=== PATIENT | male | born 1940 | race Caucasian/White ===

== ENCOUNTER 2022-05-21 13:28 | Day surgery (SDC) | payer OTHER ==
[2022-05-20 10:46] VITALS: BMI 29.2
[~2022-05-21 13:28] MED LIST: LACTATED RINGERS 1,000 ML IV SCH; LIDOCAINE 1% (10MG/ML) FOR IV START INTRADERMA PRN
[2022-05-21 13:59] VITALS: RESP 16; TEMP 97
[2022-05-21] MEDS ORDERED: LIDOCAINE 2% INJ 20 MG/ML (2 ML VIAL) ONE (14:34)
[2022-05-21] MEDS ORDERED: PROPOFOL 10 MG/ML 20 ML VIAL IV ONE (14:34)
--- NOTE | 2022-05-21 15:00 | P.PCN ---
Date of Procedure: 05/21/22 Procedure(s) Performed: BRIEF HISTORY: Patient is a 81-year-old pleasant white female scheduled for an elective colonoscopy as a part of evaluation of positive cologuard:/Screening for colon cancer PROCEDURE PERFORMED: Colonoscopy with snare polypectomy. PREOPERATIVE DIAGNOSIS: Screening for colon cancer/positive cologuard. IV sedation per Anesthesia. PROCEDURE: After informed consent was obtained, the patient, was brought into the endoscopy unit. IV sedation was administered by Anesthesia under continuous monitoring. Digital rectal examination was normal. Initially the Olympus CF-160 flexible video colonoscope was then inserted in the rectum, gradually advanced into the cecum without any difficulty. Careful examination was performed as the scope was gradually being withdrawn. Ileocecal valve and the appendiceal orifice were visualized and appeared normal. Prep was excellent. Mucosa of the cecum, ascending colon, transverse colon, descending colon, sigmoid colon, and rectum appeared normal. In the distal rectum there was a 5 mm and 6 minutes sessile polyps removed by snare polypectomy. Retroflexion was performed in the rectum and no lesions were seen. The patient tolerated the procedure well. IMPRESSION: 5 mm and 6 mm rectal polyp status post polypectomy Rest of the colon appeared normal RECOMMENDATIONS: Findings of this examination were discussed with the patient well as his family. He was advised to follow with the biopsy results. If the biopsy reveals adenoma he can have a repeat colonoscopy in 5 years based on his overall medical condition.
[2022-05-21 15:21] VITALS: BP 170/76; PULSE 69
== END 2022-05-21 15:47 | disposition home or self-care (01) ==
LOC: ORWHC2ENDO 13:28
PROVIDERS: ATTEND Internal Medicine Gastroenterology
DX: K62.1 Rectal polyp (principal); I25.10 Atherosclerotic heart disease of native coronary artery without angina pectoris; I10 Essential (primary) hypertension; E78.5 Hyperlipidemia, unspecified; J44.9 Chronic obstructive pulmonary disease, unspecified; I63.9 Cerebral infarction, unspecified; Z88.2 Allergy status to sulfonamides; Z88.6 Allergy status to analgesic agent; Z79.899 Other long term (current) drug therapy
CPT/HCPCS: 45385; J2704; J2001; 88305

== ENCOUNTER → 2022-10-09 | Outpatient (CLI) | payer OTHER ==
[2022-10-10 03:09] LABS: African American GFR (CKD) 51.9 (60.0-200.0); Anion Gap 14.6 mmol/L (10.00-18.00); BUN/Creat Ratio 22.53 Ratio (12.00-20.00); Blood Urea Nitrogen 32.9 mg/dL (9.0-27.0); Calcium 10.3 mg/dL (8.7-10.3); Carbon Dioxide 23.3 mmol/L (20.0-27.5); Non-African American GFR(CKD) 44.8 (60.0-200.0); Potassium 4.7 mmol/L (3.5-5.5)
[2022-10-10 03:16] LABS: Basophils # (A) 0.03 X 10*3/uL (0.00-0.10); Basophils % (A) 0.7 %; Eosinophils # (A) 0.12 X 10*3/uL (0.04-0.35); Eosinophils % (A) 2.7 %; HCT 35.3 % (39.6-50.0); HGB 11.2 g/dL (13.0-17.0); Immature Grans, Automated 0.2 %; Lymphocytes # (A) 1.24 X 10*3/uL (0.90-5.00); Lymphocytes % (A) 27.7 %; MCH 32.8 pg (27.0-32.0); MCHC 31.7 g/dL (32.0-37.0); MCV 103.5 fL (80.0-97.0); Monocytes # (A) 0.59 X 10*3/uL (0.20-1.00); Monocytes % (A) 13.2 %; NRBC Per 100 WBC 0 /100 WBCS (0.0-0.0); Neutrophils # (A) 2.49 X 10*3/uL (1.80-7.70); Neutrophils % (A) 55.5 %; Platelet Count 185 X 10*3/uL (140-440); RBC 3.41 X 10*6/uL (4.40-5.60); RDW 13.2 % (11.5-14.5); WBC 4.48 X 10*3/uL (4.50-10.00)
[2022-10-10 04:32] LABS: INR 1.01 (0.90-1.11); Prothrombin Time 11.4 sec (9.9-11.9)
== END | disposition home or self-care (01) ==
LOC: LABWHC1 16:28
PROVIDERS: ATTEND Nurse Practitioner
DX: I10 Essential (primary) hypertension (principal); I35.0 Nonrheumatic aortic (valve) stenosis
CPT/HCPCS: 36415; 80048; 85025; 85610

== ENCOUNTER → 2022-10-16 | Day surgery (SDC) | payer OTHER ==
[2022-10-15 14:12] VITALS: BMI 30.5
[~2022-10-16] MED LIST changes: +ALPRAZolam 0.25 MG TAB PO PRN; +ALPRAZolam 0.5 MG TAB PO PRN; +ASPIRIN 325 MG TAB PO STA; +ATORVASTATIN 80 MG TAB PO STA; +BENZOCAINE SPRAY 1 CAN TOPICAL ONE; +HEPARIN SODIUM 1,000 UN/ML (10ML VL) IV ONE; +HEPARIN SODIUM 1,000 UN/ML (10ML VL) ONE; +HEPARIN SODIUM,PORCINE 10,000 UNIT in SODIUM CHLORIDE 0.9% 1,000 ML IRRIGATION PRN; +HEPARIN SODIUM,PORCINE 2,500 UNIT in SODIUM CHLORIDE 0.9% 250 ML IRRIGATION PRN; +IOPAMIDOL-370 100ML BTL INJ ONE; -LACTATED RINGERS 1,000 ML IV SCH; -LIDOCAINE 1% (10MG/ML) FOR IV START INTRADERMA PRN; +LIDOCAINE 1% INJ 10MG/ML (5 ML VIAL-PF) SQ ONE; +NITROGLYCERIN SL TABS 0.4 MG TAB SUBLINGUAL PRN; +SODIUM CHLORIDE 0.9% 1,000 ML IV ONE; +SODIUM CHLORIDE 0.9% 1,000 ML IV SCH; +SODIUM CHLORIDE 0.9% 1,000 ML in EMPTY BAG 1 BAG IV ONE; +VERAPAMIL 2.5 MG/ML 2 ML AMP ONE; +VERAPAMIL SYRINGE (5 MG/10 ML) INTRAARTER ONE; +fentaNYL (PF) 50 MCG/ML 2 ML AMP IVP ONE; +fentaNYL (PF) 50 MCG/ML 2 ML AMP ONE
[2022-10-16 08:24] VITALS: RESP 16; TEMP 97
[2022-10-16] MEDS: MIDAZOLAM 2 MG/2 ML VIAL IVP ONE ×2 (10:06→10:09)
--- NOTE | 2022-10-16 10:56 | ECHOT ---
TRANSESOPHAGEAL ECHOCARDIOGRAM INDICATIONS: Aortic stenosis. PROCEDURE NOTE: After obtaining informed consent, transesophageal echocardiogram is performed in left lateral position using an Omniplane probe. Local and IV sedation were obtained using 2 mg of Versed and 25 mcg of fentanyl. The patient tolerated the procedure well without any obvious immediate complications. Total sedation time was 10 minutes. FINDINGS: 1. Aortic Valve: Aortic valve is a 3-leaflet valve, appears heavily calcified with severe restriction in leaflet mobility. By planimetry, the valve area is 0.7 square cm consistent with severe aortic stenosis. There is moderate to severe aortic regurgitation noted. 2. Aortic root measures within normal limits. There is shzfnttn-pq-vsmzxn atherosclerotic plaque in the aorta. 3. Mitral valve shows mitral annular calcification with pwdk-nc-vtwsacwu central mitral regurgitation. Tricuspid valve shows moderate tricuspid regurgitation, interatrial septum. There is no evidence of ypxx-gk-tqzjj shunt by color-flow Doppler or rxioz-lj-cnmt shunt by agitated saline contrast study. Left atrium appears moderately enlarged. Right atrium and right ventricle seen within normal limits. 4. Left ventricle has normal size and systolic function. CONCLUSION: 1. Severe aortic stenosis involving a 3-leaflet aortic valve that is heavily calcified with a valve area of 0.7 square cm by planimetry. 2. Normal LV systolic function. 3. Eifbqkrq-ij-cvcbdv aortic regurgitation. PLAN: The patient will undergo cardiac catheterization and aortic valve replacement. MMODL / IJN: [id number] /
[2022-10-16 13:29] VITALS: BP 117/55; PULSE 42
--- NOTE | 2022-10-16 13:34 | CC ---
CARDIAC CATHETERIZATION REPORT DATE OF SERVICE: 10/16/2022. PROCEDURE PERFORMED: Coronary angiography. PERFORMED BY: Dr. Dennis Javier. ANESTHESIA: Moderate conscious sedation time was 22 minutes. The patient was administered Versed. Oxygen saturation, hemodynamics, and EKG were monitored closely. CLINICAL INFORMATION: Mr. Sean Garcia is an 82-year-old gentleman with a history of severe aortic stenosis and also recent abnormal stress test with inferolateral reversible defect. He has hypertension and hyperlipidemia. Because of abnormal stress test and also worsening aortic stenosis and mean gradient of more than 32 mmHg, he was advised cardiac catheterization after due discussion regarding risks, benefits, and options with the patient and his son. He underwent transesophageal echo, which revealed severe aortic stenosis with mild aortic regurgitation and also probably moderate pulmonary hypertension. He was advised coronary angiography in conjunction with a transesophageal echo to decide regarding the aortic valve replacement and also to assess for coronary artery disease. PROCEDURE NOTE: Under local anesthesia and strict aseptic precautions with the help of an ultrasound and micropuncture needle technique, a 6-Arabic introducer was placed in the right radial artery. Using 3.5 left and 4.0 right Nahomy catheters, I performed coronary angiography. I did not check LV pressures. The sheath was taken out, and TR band was applied as per protocol with saturation in the fingers of the right hand of more than 95%. The patient tolerated the procedure well without complications. He has significant calcification of coronary arteries. CARDIAC CATHETERIZATION FINDINGS: The left ventricular pressures were not checked. CORONARY ANGIOGRAPHY FINDINGS: RIGHT CORONARY ARTERY: This is a codominant vessel gives off a large PDA distally. In the proximal one-third, there is pxiwiybn-li-pntes calcification, and in the proximal portion, there is an eccentric 60% narrowing just before a long area of calcified segment. Beyond it, the caliber improves, and distally, it gives off the PDA branch but not the PLV branch. The rest of the RCA has no significant disease. There is a 60% proximal lesion with calcification. LEFT MAIN CORONARY ARTERY: Short, patent, disease-free vessel that immediately bifurcates into LAD and circumflex. No significant disease. LEFT ANTERIOR DESCENDING CORONARY ARTERY: Good-caliber vessel, extends along the anterior wall, gives off a good-sized diagonal branch very proximally and several smaller septal branches, runs all the way to the apex. This is a large-caliber large- distribution vessel, has about 30% to 40% narrowing. No significant disease in the entire LAD system including the diagonal. There is moderate calcification and moderate disease of no more than 30% to 40%. LEFT POSTERIOR CIRCUMFLEX CORONARY ARTERY: Technically, a nondominant/codominant vessel that gives off small obtuse marginal branches and a distal posterolateral branch. There is about 30% to 40% narrowing. No significant disease in the codominant/nondominant circumflex vessel. Distal circumflex posterolateral branch has about 50% to 60% narrowing noted, but the flow appears to be quite brisk, and there is no significant calcification in that area. LEFT VENTRICULOGRAM: Not performed. FINAL IMPRESSION: This patient has a codominant/right-dominant system. There is a 60% proximal right coronary artery disease with heavy calcification, and there is a good-sized posterior descending artery branch that comes off from the right coronary artery. Left main has no significant disease and is very small. Left anterior descending has 30% to 40% narrowing. The PLV branch that comes off from the nondominant circumflex has a 50% narrowing. No other significant disease in the rest of circumflex. Left ventricular pressures were not checked. By transesophageal echo, the patient has severe aortic stenosis. RECOMMENDATIONS: I am recommending that we will perform an iFR/FFR of RCA and perform RCA intervention, and after that, we will proceed with percutaneous aortic valve implant. I do not believe circumflex lesion is significant, and there is ischemia in the inferolateral wall. The patient's creatinine is 1.5. Therefore, we will stage the procedure. Findings were discussed with the patient as well as his son, and he will be discharged later on today, and I will see him in the office on Friday. MMODL / IJN: [id number] /
== END ==
LOC: CATHCVL 07:48
PROVIDERS: ATTEND Internal Medicine Interventional Cardiology
DX: I25.10 Atherosclerotic heart disease of native coronary artery without angina pectoris (principal); I08.3 Combined rheumatic disorders of mitral, aortic and tricuspid valves; I10 Essential (primary) hypertension; E78.5 Hyperlipidemia, unspecified; F17.210 Nicotine dependence, cigarettes, uncomplicated; Z88.5 Allergy status to narcotic agent; Z88.6 Allergy status to analgesic agent; Z79.82 Long term (current) use of aspirin; Z79.899 Other long term (current) drug therapy; Z79.52 Long term (current) use of systemic steroids
CPT/HCPCS: 93454; 99152; 93312; 93325; C1769 ×2; C1894; J2250; J2001; J3010; J1644; Q9967

== ENCOUNTER → 2022-10-21 | Outpatient (CLI) | payer OTHER ==
[2022-10-21 15:22] LABS: HCT 35.4 % (39.6-50.0); HGB 11.3 g/dL (13.0-17.0); MCHC 31.9 g/dL (32.0-37.0); MCV 103.5 fL (80.0-97.0); Mean Platelet Volume 11.2 fL (9.5-12.2); NRBC Per 100 WBC 0 /100 WBCS (0.0-0.0); Platelet Count 169 X 10*3/uL (140-440); RBC 3.42 X 10*6/uL (4.40-5.60); RDW 13.1 % (11.5-14.5); WBC 5.23 X 10*3/uL (4.50-10.00)
[2022-10-21 15:47] LABS: African American GFR (CKD) 43.2 (60.0-200.0); Anion Gap 10.5 mmol/L (10.00-18.00); Blood Urea Nitrogen 35.1 mg/dL (9.0-27.0); Carbon Dioxide 23.5 mmol/L (20.0-27.5); Non-African American GFR(CKD) 37.3 (60.0-200.0); Potassium 5.2 mmol/L (3.5-5.5)
== END | disposition home or self-care (01) ==
LOC: LABPAT 10:13
PROVIDERS: ATTEND Internal Medicine Interventional Cardiology
DX: Z01.812 Encounter for preprocedural laboratory examination (principal); I25.10 Atherosclerotic heart disease of native coronary artery without angina pectoris
CPT/HCPCS: 36415; 80051; 82565; 84520; 85027

== ENCOUNTER 2022-10-29 07:36 | Day surgery (SDC) | payer OTHER ==
[~2022-10-29 07:36] MED LIST changes: -ATORVASTATIN 80 MG TAB PO STA; -BENZOCAINE SPRAY 1 CAN TOPICAL ONE; -HEPARIN SODIUM 1,000 UN/ML (10ML VL) IV ONE; -HEPARIN SODIUM 1,000 UN/ML (10ML VL) ONE; -HEPARIN SODIUM,PORCINE 10,000 UNIT in SODIUM CHLORIDE 0.9% 1,000 ML IRRIGATION PRN; -HEPARIN SODIUM,PORCINE 2,500 UNIT in SODIUM CHLORIDE 0.9% 250 ML IRRIGATION PRN; -IOPAMIDOL-370 100ML BTL INJ ONE; -LIDOCAINE 1% INJ 10MG/ML (5 ML VIAL-PF) SQ ONE; -SODIUM CHLORIDE 0.9% 1,000 ML IV ONE; -SODIUM CHLORIDE 0.9% 1,000 ML IV SCH; -SODIUM CHLORIDE 0.9% 1,000 ML in EMPTY BAG 1 BAG IV ONE; +SODIUM CHLORIDE 0.9% 1,000 ML in EMPTY BAG 1 BAG IV SCH; -VERAPAMIL 2.5 MG/ML 2 ML AMP ONE; -VERAPAMIL SYRINGE (5 MG/10 ML) INTRAARTER ONE; -fentaNYL (PF) 50 MCG/ML 2 ML AMP IVP ONE; -fentaNYL (PF) 50 MCG/ML 2 ML AMP ONE
[2022-10-29 07:58] VITALS: RESP 18; TEMP 97.7
[2022-10-29] MEDS ORDERED: VERAPAMIL 2.5 MG/ML 2 ML AMP ONE (10:26)
[2022-10-29] MEDS ORDERED: HEPARIN SODIUM 1,000 UN/ML (10ML VL) ONE (10:26)
[2022-10-29] MEDS: MIDAZOLAM 2 MG/2 ML VIAL IVP ONE ×2 (11:06→11:20)
[2022-10-29] MEDS ORDERED: LIDOCAINE 1% INJ 10MG/ML (5 ML VIAL-PF) SQ ONE (11:06)
[2022-10-29] MEDS ORDERED: MIDAZOLAM 2 MG/2 ML VIAL IVP ONE (11:06)
[2022-10-29] MEDS: VERAPAMIL SYRINGE (5 MG/10 ML) INTRAARTER ONE ×2 (11:07→11:36)
[2022-10-29] MEDS ORDERED: HEPARIN SODIUM 1,000 UN/ML (10ML VL) IVP ONE (11:17)
[2022-10-29] MEDS ORDERED: NITROGLYCERIN SL TABS 0.4 MG TAB SUBLINGUAL ONE ×2 (11:18→11:20)
[2022-10-29] MEDS ORDERED: NITROGLYCERIN 1000MCG/10ML SYRINGE INTRACORON ONE (11:30)
[2022-10-29] MEDS ORDERED: IOPAMIDOL-370 100ML BTL INJ ONE (11:36)
[2022-10-29] MEDS ORDERED: SODIUM CHLORIDE 0.9% 1,000 ML IV SCH (12:00)
[2022-10-29 15:07] VITALS: BP 136/63; PULSE 50
--- NOTE | 2022-10-29 23:17 | PCN ---
PROCEDURE NOTE PROCEDURES PERFORMED: Coronary angiography and iFR assessment of moderate lesion in the proximal right coronary artery. PERFORMED BY: Dr. Dennis Javier. ANESTHESIA: Moderate conscious sedation time was 33 minutes. The patient was administered Versed. Oxygen saturation, hemodynamics, and EKG were monitored closely. CLINICAL INFORMATION: Mr. Sean Garcia is an 82-year-old gentleman with a history of hypertension, hyperlipidemia, and severe aortic stenosis, who had a cardiac catheterization that revealed moderate disease in the proximal RCA. He has chronic kidney disease with creatinine in the range of 1.7; therefore, we did not do an iFR at the same time. He was brought in for elective iFR and intervention of RCA if significant. There was a moderate 50% lesion in the proximal RCA on a previous cardiac catheterization. PROCEDURE NOTE: Under strict aseptic precautions and local anesthesia with an intravascular ultrasound, a micropuncture needle technique was used, and a 6-Greek introducer was placed in the right radial artery. Initially, I tried a standard right Nahomy and switched over to 0.75 left Amplatz catheter. With this, I cannulated the right coronary artery. I used Omni wire to cross the lesion. This wire was inserted after adequate normalization and calibration appropriately. The wire was kept distally. The catheter was taken off from the ostium. Nitroglycerin was given to begin with. IFR measurement was performed. Two excellent recordings were achieved. IFR was 0.98, suggesting that this is not a significant lesion. The wire was taken out. Angiogram was performed. Vessel looked widely patent with a residual stenosis of no more than 20% to 30%. The sheath was taken out, and TR band was applied as per protocol with saturation in the fingers of the right hand of 96%. The patient had a normal iFR suggesting that the RCA lesion is not significant. He will be discharged later on today, and we will seek consultation from [facility]. Details were discussed with the patient and family. He will be discharged later on today on an appointment next week. MMODL / IJN: [id number] /
== END 2022-10-29 15:43 | disposition home or self-care (01) ==
LOC: CATHCVL 07:36
PROVIDERS: ATTEND Internal Medicine Interventional Cardiology
DX: I25.10 Atherosclerotic heart disease of native coronary artery without angina pectoris (principal); E78.5 Hyperlipidemia, unspecified; I08.0 Rheumatic disorders of both mitral and aortic valves; I12.9 Hypertensive chronic kidney disease with stage 1 through stage 4 chronic kidney disease, or unspecified chronic kidney disease; N18.9 Chronic kidney disease, unspecified; Z79.82 Long term (current) use of aspirin; Z79.899 Other long term (current) drug therapy; Z88.5 Allergy status to narcotic agent; Z88.8 Allergy status to other drugs, medicaments and biological substances
CPT/HCPCS: 93571; 99152; 99153; 93454; 93799; C1887 ×2; C1769 ×2; C1894; J2250; J2001; J1644; Q9967

== ENCOUNTER 2022-11-07 07:07 | Outpatient (CLI) | payer OTHER ==
[2022-11-07 08:06] LABS: Partial Thromboplastin Time 29.2 sec (22.0-30.0)
[2022-11-07 08:10] LABS: Basophils % (A) 1 %; Eosinophils # (A) 0.2 k/uL (0-0.7); Eosinophils % (A) 3 %; HCT 37.7 % (39.0-53.0); HGB 12.1 gm/dL (13.0-17.5); Lymphocytes % (A) 17 %; MCV 103.1 fL (80.0-100.0); Macrocytosis Slight; Mean Platelet Volume 8.1; Monocytes # (A) 0.4 k/uL (0-1.0); Monocytes % (A) 7 %; Neutrophils # (A) 4.2 k/uL (1.3-7.7); Neutrophils % (A) 72 %; Platelet Count 162 k/uL (150-450); RBC 3.66 m/uL (4.30-5.90); RDW 12.7 % (11.5-15.5); WBC 5.8 k/uL (3.8-10.6)
[2022-11-07 08:12] LABS: ALT 28 U/L (4-49); African American GFR (CKD) 58 (>60 ml/min/1.73 sqM); Albumin 4.9 g/dL (3.5-5.0); Albumin/Globulin Ratio 1.6; Anion Gap 11 mmol/L; Blood Urea Nitrogen 32 mg/dL (9-20); Calcium 9.5 mg/dL (8.4-10.2); Carbon Dioxide 25 mmol/L (22-30); Chloride 104 mmol/L (98-107); Glucose 106 mg/dL (74-99); Non-African American GFR(CKD) 50 (>60 ml/min/1.73 sqM); Sodium 140 mmol/L (137-145); Total Protein 7.9 g/dL (6.3-8.2)
[2022-11-07 08:25] LABS: AST 46 U/L (17-59); Magnesium 2.2 mg/dL (1.6-2.3); Potassium 4.6 mmol/L (3.5-5.1)
[2022-11-07 08:26] LABS: Alkaline Phosphatase 63 U/L (38-126)
--- NOTE | 2022-11-07 11:59 | CT ---
EXAMINATION TYPE: CT TAVR Planning DATE OF EXAM: 11/07/2022 HISTORY: TAVR planning CT DLP: 1929.4 mGycm Automated Exposure Control for Dose Reduction was Utilized. CONTRAST: CT scan of the chest, abdomen and pelvis is performed with IV Contrast, patient injected with 125cc m L of Isovue 370. COMPARISON: None. TECHNIQUE: Helical imaging obtained through the chest, abdomen and pelvis during arterial phase ana maria g administration of radiographic contrast intravenously. FINDINGS: See report from [facility] regarding preprocedural planning CHEST: Lower Neck and Thyroid: No significant findings Lungs: Mild to moderate peripheral reticulation and/or fibrotic change greatest in the mid to lower l ungs. Central Airway: No significant findings Pleura: No significant findings Pulmonary Arteries: No significant findings Heart and Pericardium: Mild cardiomegaly. Calcification and thickening of the mitral and aortic valve s. Coronary artery calcification is present which is noted marker for underlying coronary artery dise ase. Lymph Nodes: No significant findings Mediastinum & Esophagus: Moderate size hiatal hernia ABDOMEN/PELVIS: Please note arterial phase of the imaging limits detailed evaluation of the solid abdominal organs. Liver: No significant findings Spleen: No significant findings Kidneys: No significant findings Adrenal Glands: No significant findings Pancreas: No significant findings Gallbladder: No significant findings Bowel and Mesentery: . Scattered colonic diverticula Lymph Nodes: No significant findings Urinary Bladder: No significant findings Pelvic Organs: No significant findings Osseous structures: Metallic hardware from right shoulder surgery causes streak artifact limiting sima luation at this level. There is grade 2 anterolisthesis L5 on S1 with marked disc space narrowing. Th ere is multilevel vacuum disc phenomenon with early moderate disc space narrowing and endplate sclero sis centered in the mid lumbar spine. Moderate axial joint space loss of both hips along with acetabu lar spurring. Other: No significant findings IMPRESSION: Some incidental findings as noted above.
[2022-11-07 13:27] LABS: T4, Free (Free Thyroxine) 1.34 ng/dL (0.78-2.19)
== END 2022-11-07 15:11 | disposition home or self-care (01) ==
LOC: LABWHC1 07:07
PROVIDERS: ATTEND Thoracic Surgery (Cardiothoracic Vascular Surgery)
DX: Z01.812 Encounter for preprocedural laboratory examination (principal); E87.8 Other disorders of electrolyte and fluid balance, not elsewhere classified; I35.0 Nonrheumatic aortic (valve) stenosis; E11.9 Type 2 diabetes mellitus without complications; Z79.899 Other long term (current) drug therapy; R58 Hemorrhage, not elsewhere classified; E07.9 Disorder of thyroid, unspecified; R35.0 Frequency of micturition; Z79.01 Long term (current) use of anticoagulants; N28.9 Disorder of kidney and ureter, unspecified; E78.5 Hyperlipidemia, unspecified
CPT/HCPCS: 94150; 84439; 83880; 80061; 80053; 84443; 83735; 85025; 85610; 85730; 83036; 71275; 74174; 36415; Q9967

== ENCOUNTER → 2022-11-18 | Outpatient (CLI) | payer OTHER | END | disposition home or self-care (01) | LOC: LABWHC1 10:10 | PROVIDERS: ATTEND Thoracic Surgery (Cardiothoracic Vascular Surgery) | DX: Z53.9 Procedure and treatment not carried out, unspecified reason (principal) ==

== ENCOUNTER 2022-11-20 05:56 | Inpatient (IN) | payer OTHER ==
[2022-11-15 09:38] VITALS: BMI 30.4
[2022-11-20] MEDS ORDERED: ASPIRIN 325 MG TAB PO ONE (06:00)
[2022-11-20] MEDS ORDERED: NITROGLYCERIN-D5W PMX 25 MG/250 ML BTL IV PRN (06:00)
[2022-11-20] MEDS ORDERED: PROTAMINE SULFATE 250 MG in EMPTY BAG 1 BAG IV PRN (06:00)
[2022-11-20] MEDS ORDERED: CLEVIDIPINE BUTYRATE 25 MG in EMPTY BAG 1 BAG IV PRN (06:00)
[2022-11-20] MEDS ORDERED: METOPROLOL TARTRATE 25 MG TAB PO ONE (06:00)
[2022-11-20] MEDS ORDERED: INSULIN REGULAR 100 UNIT in SODIUM CHLORIDE 0.9% 100 ML IV PRN (06:00)
[2022-11-20] MEDS ORDERED: TRANEXAMIC ACID 2,000 MG in SODIUM CHLORIDE 0.9% 80 ML IV PRN (06:00)
[2022-11-20] MEDS ORDERED: SODIUM CHLORIDE 0.9% 1,000 ML IV SCH ×2 (06:00→09:32)
[2022-11-20] MEDS ORDERED: CLOPIDOGREL 75 MG TAB PO ONE (06:00)
[2022-11-20] MEDS ORDERED: ELECTROLYTE-A SOLUTION 1,000 ML with POTASSIUM CHLORIDE 100 MEQ, MAGNESIUM SULFATE 16 M... IV PRN ×5 (06:00)
[2022-11-20] MEDS ORDERED: SODIUM CHLORIDE 0.9% 500 ML 500 ML INTRAARTER PRN (06:00)
[2022-11-20 06:24] LABS: Glucose,Whole Blood 106 mg/dL (70-110)
[2022-11-20 06:31] LABS: Basophils % (A) 0 %; Eosinophils # (A) 0.2 k/uL (0-0.7); Eosinophils % (A) 3 %; HCT 34.4 % (39.0-53.0); HGB 11.3 gm/dL (13.0-17.5); Lymphocytes % (A) 16 %; MCH 33.2 pg (25.0-35.0); MCV 100.5 fL (80.0-100.0); Mean Platelet Volume 8.8; Monocytes # (A) 0.4 k/uL (0-1.0); Monocytes % (A) 7 %; Neutrophils # (A) 4.4 k/uL (1.3-7.7); Neutrophils % (A) 71 %; Platelet Count 160 k/uL (150-450); RBC 3.42 m/uL (4.30-5.90); RDW 13.1 % (11.5-15.5); WBC 6.2 k/uL (3.8-10.6)
[2022-11-20] MEDS ORDERED: hydrALAZINE HCL 20 MG/ML 1 ML VIAL ONE (06:51)
[2022-11-20] MEDS ORDERED: fentaNYL (PF) 50 MCG/ML 2 ML AMP ONE ×2 (06:54→07:38)
[2022-11-20] MEDS ORDERED: fentaNYL (PF) 50 MCG/ML 2 ML AMP IVP ONE (06:58)
[2022-11-20] MEDS ORDERED: ATORVASTATIN 10 MG TAB PO ONE (07:00)
[2022-11-20] MEDS: hydrALAZINE HCL 20 MG/ML 1 ML VIAL IVP STA ×2 (07:10→07:27)
[2022-11-20] MEDS ORDERED: LIDOCAINE 1% INJ 10MG/ML (20 ML MDV) ONE (07:27)
[2022-11-20] MEDS ORDERED: MIDAZOLAM 2 MG/2 ML VIAL ONE (07:38)
[2022-11-20] MEDS ORDERED: PROTAMINE SULFATE 10 MG/ML 5 ML VIAL IV ONE (07:38)
[2022-11-20] MEDS ORDERED: HYDROmorphone (PF) 1 MG/ML ONE (07:38)
[2022-11-20] MEDS ORDERED: LIDOCAINE 4% LTA KIT (4 ML) TOPICAL ONE (07:38)
[2022-11-20] MEDS ORDERED: LIDOCAINE 2% INJ 20 MG/ML (2 ML VIAL) ONE (07:38)
[2022-11-20] MEDS ORDERED: GLYCOPYRROLATE 0.2 MG/ML 2 ML VIAL ONE (07:38)
[2022-11-20] MEDS ORDERED: SUCCINYLCHOLINE CHLORIDE 200 MG/10 ML VIAL IV ONE (07:38)
[2022-11-20] MEDS ORDERED: ePHEDrine 50 MG/ML 1 ML VIAL ONE (07:38)
[2022-11-20] MEDS ORDERED: NEOSTIGMINE 1 MG/ML 10 ML VIAL ONE (07:38)
[2022-11-20] MEDS ORDERED: ROCURONIUM 10 MG/ML (5 ML VIAL) IV ONE (07:38)
[2022-11-20] MEDS ORDERED: PROPOFOL 10 MG/ML 20 ML VIAL IV ONE (07:38)
[2022-11-20] MEDS ORDERED: HEPARIN SODIUM,PORCINE 10,000 UNIT/ML 1 ML VIAL ONE (07:38)
[2022-11-20] MEDS ORDERED: IOPAMIDOL-370 100ML BTL INTRATHECA ONE ×2 (09:12→09:13)
[2022-11-20] MEDS ORDERED: IV FLUID CONTINUATION 1,000 ML IV ONE (09:18)
--- NOTE | 2022-11-20 09:24 | P.PCN ---
Date of Procedure: 11/20/22 Operative Findings: TRANSCATHETER AORITC VALVE REPLACEMENT OPERATIVE REPORT PROCEDURE PERFORMED: 1. Percutaneous Aortic Valve Implantation using a 26 mm mm Sneed valve 2. Transesophageal echocardiography (performed by anesthesia) 3. Ultrasound guided access and repair of right and left femoral artery access site by Perclose closure device. 4. Placement of temporary pacemaker wire. 5. Aortic root angiography INDICATIONS: 1. 82 year-old with a history of severe symptomatic aortic valve stenosis. The patient was experiencing shortness of breath consistent with NYHA class II PERFORMING PHYSICIANS: 1. Jaswinder Carson DO Interventional Cardiology 2. Lamont Lugo MD Interventional Cardiology. 3. Dom Alfonso MD SEDATION: General anesthesia provided by anesthesia, see separate note APPROACH: Right and left femoral artery via percutaneous approach PROCEDURE DESCRIPTION: The patient was discussed at valve clinic with multidisciplinary approach with cardiothoracic surgeon as well as tandem operator and thought better treated with TAVR. Risks, benefits, and alternatives of the procedure had been explained to the patient who understood the risks and agreed to proceed. After consents were obtained, patient was brought to the transcatheter aortic valve implantation room in the cardiac brick and blocker aid labor and general anesthesia was provided by the anesthesiologist (see separate report). The left common femoral vein was cannulated using micropuncture technique under ultrasound guidance, a micropuncture wire passed easily then I placed a 6-Ghanaian sheath. It was 23 cm sheath. Subsequently transfer the circumflex wire with a balloon tip was advanc ed under fluoroscopy guidance to the right ventricle.. Pacing threshholds were checked and deemed appropriate. Next the left common femoral artery waw accessed using a modified Seldinger technique, ultrasound guidance and micropuncture technique. A 6 Ghanaian Rabi sheath was placed in the left femoral artery. Next, a 6-Ghanaian pigtail catheter was advanced into the aorta and positioned in the aortic root, aortic root angiography was performed to determine optimal deployment angle. The the right femoral artery was accessed using modified Seldinger technique, micropuncture technique and under direct ultrasound guidance. Femoral angiogram was done showing access in the common femoral artery and a 6Fr sheath was placed. Next preclose technique was performed using a two Perclose. Next a 0. 035 Lunderquist wire was placed in the Aorta via a pigtail catheter. After that I did advance a 14-Ghanaian sheath over the stiff wire under fluoroscopy guidance. Next a 6F- AL1 catheter was advanced over a wire to the aortic root. A straight wire was advanced through the catheter and used to cross the severely stenotic valve. The AL1 was then exchanged for a 6Fr pigtail catheter and pressure elsy urements were obtained. The 0.035 Lunderquist wire was then positioned in the apex. Next a 26 mm Sneed was advanced. The valve was then positioned across the aortic valve and confirmed with aortic root angiography. The valve was then deployed in proper position using slow deployment and with rapid pacing in conjuncture with aortic root angiography and JUAN PABLO. The delivery system was withdrawn back into the arch and an aortic root injection in conjunction with JUAN PABLO demonstrated a satisfactory result. There was mild to moderate para valvular leak. There was no evidence of any other significant abnormalities. The preclose Perclose was then deployed in the right femoral artery and hemostasis was achieved. An angiogram from the left groin was performed using a rim catheter and that showed good hemostasis. Femoral angiogram was performed that showed no contrast leak. The left femoral angiogram demonstrated an arteriotomy in the common femoral artery and this was repaired using a 6F angioseal device with complete hemostasis. The temporary venous pacemaker was sutured in place. The patient was then transported to the ICU in hemodynamically stable condition, requiring no pressor support. COMPLICATIONS: None RECOMMENDATIONS: The patient will be monitored in the ICU for hemodynamic and electrical stab ility.
[2022-11-20] MEDS ORDERED: ACETAMINOPHEN TAB 325 MG TAB PO PRN (09:32)
[2022-11-20] MEDS ORDERED: ONDANSETRON 4 MG/2 ML VIAL IVP PRN (09:32)
[2022-11-20] MEDS ORDERED: IPRATROPIUM-ALBUTEROL 3 ML NEB INHALATION PRN (09:32)
[2022-11-20] MEDS ORDERED: GABAPENTIN 100 MG CAP PO PRN (09:32)
[2022-11-20 09:50] LABS: Glucose,Whole Blood 92 mg/dL (70-110)
--- NOTE | 2022-11-20 10:02 | P.OP ---
Date of Procedure: 11/20/22 Preoperative Diagnosis: Severe symptomatic aortic valve stenosis and aortic valve regurgitation Postoperative Diagnosis: Same Procedure(s) Performed: 1Insertion of right ventricular temporary pacing wire via the left common femoral vein 2 Transcatheter aortic valve replacement using a 26 mm NORBERTO 3 ultra Sneed valve Implants: 26 mm norberto III ultra Sneed valve Anesthesia: GETA Surgeon: Dom Ramos (Cosurgeon: Dr Lamont Choi ) Executive Assistant To General Counsel #1: Jaswinder Carson Pathology: none sent Condition: stable Disposition: ICU Indications for Procedure: Severe symptomatic aortic valve disorders Operative Findings: Severe aortic valve stenosis and regurgitation Description of Procedure: The technical details would be dictated by structural cardiology. To mention that I fully participated in the proper deployment of a 26 mm norberto III ultra- Sneed transcatheter valve in proper anatomic position. JUAN PABLO and aortogram showed residual mild paravalvular aortic valve regurgitation with low residual gradient. There were no change into the EKG. Patient tolerated procedure well
[2022-11-20 10:08] LABS: Ionized Calcium 5.1 mg/dL (4.5-5.3)
[2022-11-20 10:11] LABS: INR 1.2 (<1.2); Partial Thromboplastin Time 30.8 sec (22.0-30.0); Prothrombin Time 12.2 sec (9.0-12.0)
[2022-11-20 10:16] LABS: Basophils % (A) 0 %; Eosinophils # (A) 0.1 k/uL (0-0.7); Eosinophils % (A) 4 %; HCT 28.2 % (39.0-53.0); HGB 9.4 gm/dL (13.0-17.5); Lymphocytes # (A) 0.8 k/uL (1.0-4.8); Lymphocytes % (A) 25 %; MCH 33.2 pg (25.0-35.0); MCHC 33.1 g/dL (31.0-37.0); MCV 100.3 fL (80.0-100.0); Mean Platelet Volume 8.8; Monocytes # (A) 0.2 k/uL (0-1.0); Monocytes % (A) 6 %; Neutrophils # (A) 2.1 k/uL (1.3-7.7); Neutrophils % (A) 63 %; Platelet Count 108 k/uL (150-450); RBC 2.82 m/uL (4.30-5.90); RDW 13.1 % (11.5-15.5); WBC 3.3 k/uL (3.8-10.6)
--- NOTE | 2022-11-20 10:18 | XR ---
EXAMINATION TYPE: XR chest 1V portable DATE OF EXAM: 11/20/2022 CLINICAL HISTORY: Postoperative cardiac surgery. TECHNIQUE: Single AP portable semiupright view of the chest is obtained. COMPARISON: CT November 07, 2022. FINDINGS: There is lung volumes and bibasilar opacities consistent with atelectasis and/or scarring. Cardiomegaly is present. There is no stent graft in the aortic root. Surgical changes right shoulder is partially imaged. No pleural effusion or pneumothorax is noted. IMPRESSION: Cardiomegaly and low lung volumes with bibasilar linear scarring and/or atelectasis redem onstrated.
[2022-11-20 10:41] LABS: Albumin 3.2 g/dL (3.5-5.0); Magnesium 1.8 mg/dL (1.6-2.3); Potassium 3.5 mmol/L (3.5-5.1); Total Bilirubin 0.8 mg/dL (0.2-1.3); Total Protein 5.5 g/dL (6.3-8.2)
--- NOTE | 2022-11-20 10:56 | P.ANPRN ---
Procedure Note - Anesthesia - Invasive Line Right Arterial Line Time Out Performed: Yes (700) Date of Procedure: 11/20/22 Time of Procedure: 07:02 Location of Patient: CV[facility] Preparation: Sterile Prep, Sterile Dressing Arterial Line Location: Radial (right) Ultrasound Used: No Purpose - Visualization and Identification of Vasculature: No Needle Guage: 20g Image Stored and Saved: No Narrative: Central line placement per sterile protocol utilized.
--- NOTE | 2022-11-20 10:58 | P.ANPRN ---
Procedure Note - Anesthesia - JUAN PABLO Intraop Pre Bypass JUAN PABLO Intraop - Anesthesia Indication: aortic stenosis,tavr Date of Procedure: 11/20/22 Pre-operative Diagnosis: aortic stenosis Post-operative Diagnosis: aortic stenosis Surgeon: Dom Ramos Left Ventricle: LVH Ejection Fraction: Normal Regional Wall Motion Abnormalities: None Left Ventricle Hypertrophy: Yes Right Ventricle: wnl R. Ventricle Function: Normal Aortic Valve: thickened valve with reduced leaflet motion. Fusion of the commisures. peak velocity 4m/s. Anatomy: Trileaflet Aortic Stenosis: Severe Aortic Regurgitation: Severe Mitral Stenosis: None Mitral Regurgitation: Mild Tricuspid Stenosis: None Tricuspid Regurgitation: Mild Pulmonic Stenosis: None R. Atrial Dilation: No R. Atrial PFO: No L. Atrial Dilation: No Aortic Dissection: No Aortic Calcification: None Plural Effusion: None
--- NOTE | 2022-11-20 11:02 | P.ANPRN ---
Procedure Note - Anesthesia - JUAN PABLO Intraop Post Bypass JUAN PABLO Intraop Post Bypass Procedure Performed: TAVR Left Ventricle: unchanged Ejection Fraction: Normal Regional Wall Motion Abnormalities: None Right Ventricle: unchanged R. Ventricle Function: Normal Aortic Valve: peak of 14, mean of 7. Great valve opening. small residual perivalvular leak at the 12 oclock position decreasing with time after deployement Mitral Valve: Unchanged Tricuspid: Unchanged Pulmonic: Unchanged Aortic Dissection: No
[2022-11-20] MEDS ORDERED: Potassium Replacement Protocol 1 EACH MISC MISCELLANE PRN (11:26)
[2022-11-20] MEDS ORDERED: Magnesium Replacement Protocol 1 EACH MISC MISCELLANE PRN (11:27)
[2022-11-20] MEDS: POTASSIUM CHLORIDE ER 20 MEQ TAB.ER PO SCH ×2 (11:45→15:06)
[2022-11-20] MEDS: IPRATROPIUM 0.5 MG/2.5 ML NEBU INHALATION SCH ×3 (11:51→20:29)
[2022-11-20] MEDS ORDERED: MAGNESIUM SULFATE-D5W PMX 1 GM in DEXTROSE/WATER 1 100ML.BAG IVPB ONE (12:00)
--- NOTE | 2022-11-20 14:48 | P.CNPUL ---
History of Present Illness Consult date: 11/20/22 Requesting physician: Dom Ramos Reason for consult: other (Critical care management) Chief complaint: Aortic stenosis History of present illness: This is a very pleasant 82-year-old male patient with a known history of coronary artery disease, myocardial infarction, hypertension, hyperlipidemia, CVA, COPD, gout, prostate disorder, chronic anemia. He's also found to have severe aortic stenosis and was brought in today for an elective transcatheter aortic valve replacement using a 26 mm norberto III ultra Sneed valve. He also had insertion of a right ventricular temporary pacer wire. He is seen in the intensive care unit postoperatively. He is sitting up in bed. Awake and alert in no acute distress. Maintaining good O2 saturations in the 90s on room air. Chest x-ray shows cardiomegaly with low lung volumes and bibasilar scarring. He's afebrile. Somewhat bradycardic with heart rate in the 40s. White count 2.3. Hemoglobin 9.4. Platelets 108. INR 1.2. Sodium 137. Potassium 3.5. Bicarb 25. BUN 22. Creatinine 0.98. Glucose 94. He has normal saline at 50 mL per hour. Bronchodilators as needed. Heparin for DVT prophylaxis. Review of Systems REVIEW OF SYSTEMS: CONSTITUTIONAL: Denies any recent significant weight loss or weight gain. EYES: Denies change in vision. EARS, NOSE, MOUTH, THROAT: Denies headaches, denies sore throat. CARDIOVASCULAR: Denies chest pain, palpitations or syncopal episodes. RESPIRATORY: Positive for dyspnea on exertion, no cough, congestion or hemoptysis. GASTROINTESTINAL: Denies change in appetite, denies abdominal pain GENITOURINARY: Denies hematuria, denies infections. MUSKULOSKELETAL: Denies pain, denies swelling. INTEGUMENTARY: Denies rash, denies eczema. NEUROLOGICAL: Denies recent memory loss, no recent seizure activity. PSYCHIATRIC: Denies anxiety, denies depression. HEMATOLOGIC/LYMPHATIC: Denies anemia, denies enlarged lymph nodes. Past Medical History Past Medical History: COPD, CVA/TIA, Hearing Disorder / Deafness, Hyperlipidemia, Hypertension, Myocardial Infarction ([place]), Prostate Disorder Additional Past Medical History / Comment(s): Aortic Valve stenosis,Heart murmur, possible CVA or heart attack-pt not sure, back pain, gout, uses cane, hard of hearing-no hearing aides. Last Myocardial Infarction Date:: 2020? History of Any Multi-Drug Resistant Organisms: None Reported Past Surgical History: Appendectomy, Heart Catheterization, Orthopedic Surgery Additional Past Surgical History / Comment(s): Reverse shoulder, right toe surgery, left hand ring finger surgery, colonoscopy, JUAN PABLO. Past Anesthesia/Blood Transfusion Reactions: No Reported Reaction Additional Past Anesthesia/Blood Transfusion Reaction / Comment(s): No hx blood transfusion. Smoking Status: Former smoker - Past Family History Mother Family Medical History: Cancer Additional Family Medical History / Comment(s): Breast cancer. Father Family Medical History: Cancer Brother(s) Family Medical History: Cancer, Myocardial Infarction ([place]) Medications and Allergies Home Medications Medication Instructions Recorded Confirmed Type Ascorbic Acid [Vitamin C] 500 mg PO DAILY 05/20/22 11/20/22 History Aspirin [Adult Low Dose Aspirin EC] 81 mg PO DAILY 05/20/22 11/20/22 History Calcium Carbonate [Calcium] 200 mg PO BID 05/20/22 11/20/22 History Cholecalciferol [Vitamin D3 (25 25 mcg PO DAILY 05/20/22 11/20/22 History Mcg = 1000 Iu)] Diclofenac Sodium Gel [Voltaren 2 gm TOPICAL DIRECTED PRN 05/20/22 11/20/22 History Gel] Ferrous Sulfate [Iron] 325 mg PO HS 05/20/22 11/20/22 History Gabapentin [Neurontin] 200 mg PO BID PRN 05/20/22 11/20/22 History Hydrocodone/Acetaminophen 1 each PO Q8HR PRN 05/20/22 11/20/22 History [Hydrocodon-Acetaminophen 5-325] Ipratropium [place] [Atrovent Hfa] 2 puff INHALATION BID 05/20/22 11/20/22 History Loratadine 10 mg PO DAILY 05/20/22 11/20/22 History Losartan [Cozaar] 50 mg PO DAILY 05/20/22 11/20/22 History Magnesium 420 mg PO DAILY 05/20/22 11/20/22 History Multivit-Min/Folic/Vit K/Lycop 1 each PO DAILY 05/20/22 11/20/22 History [Men's Multivitamin Tablet] Omeprazole [PriLOSEC] 20 mg PO AC-BRKFST 05/20/22 11/20/22 History Tamsulosin [Flomax] 0.8 mg PO HS 05/20/22 11/20/22 History allopurinoL [Allopurinol] 100 mg PO DAILY 05/20/22 11/20/22 History carvediloL 25 mg PO BID 05/20/22 11/20/22 History hydroCHLOROthiazide 25 mg PO DAILY 05/20/22 11/20/22 History Atorvastatin [Lipitor] 40 mg PO HS #90 tablet 10/16/22 11/20/22 Rx Allergies Allergy/AdvReac Type Severity Reaction Status Date / Time cyclobenzaprine Allergy Unknown Confused, Verified 11/20/22 06:11 [From Flexeril] had stroke. celecoxib [From Celebrex] Allergy Rash/Hives Verified 11/20/22 06:11 Physical Exam Vitals: Vital Signs Temp Pulse Pulse Resp BP BP BP 11/20/22 14:00 42 L 16 153/67 11/20/22 13:30 40 L 18 11/20/22 13:00 44 L 16 165/64 11/20/22 12:30 46 L 18 11/20/22 12:00 97.5 F L 42 L 16 153/71 11/20/22 11:54 11/20/22 11:51 45 L 16 11/20/22 11:45 43 L 16 11/20/22 11:30 42 L 18 11/20/22 11:15 44 L 18 11/20/22 11:00 47 L 16 149/61 11/20/22 10:45 46 L 18 11/20/22 10:30 43 L 18 11/20/22 10:15 45 L 16 11/20/22 10:00 46 L 16 144/66 11/20/22 09:45 96.7 F L 48 L 18 11/20/22 07:39 144/60 11/20/22 07:27 176/78 11/20/22 06:19 98 F 63 18 214/86 225/96 Pulse Ox 11/20/22 14:00 96 11/20/22 13:30 99 11/20/22 13:00 98 11/20/22 12:30 99 11/20/22 12:00 99 11/20/22 11:54 96 11/20/22 11:51 11/20/22 11:45 100 11/20/22 11:30 99 05/24/23 11:15 99 11/20/22 11:00 100 11/20/22 10:45 99 11/20/22 10:30 99 11/20/22 10:15 100 11/20/22 10:00 100 11/20/22 09:45 99 11/20/22 07:39 11/20/22 07:27 11/20/22 06:19 98 Intake and Output 11/19/22 11/20/22 11/20/22 22:59 06:59 14:59 Intake Total 100 1870 Balance 100 1870 Intake: IV 100 1400 Intake, IV Titration 350 Amount Magnesium Sulfate-D5w Pmx 100 1 gm In Dextrose/Water 1 100ml.bag @ 100 mls/hr IVPB ONCE ONE Rx#: [id number] Sodium Chloride 0.9% 1, 250 000 ml @ 50 mls/hr IV . Q20H [place] Rx#:[id number] Oral 120 ABP, PAP, CO, CI - Last 8 Hours Arterial Blood Pressure 166/54 Arterial Blood Pressure 160/53 Arterial Blood Pressure 178/60 Arterial Blood Pressure 178/62 Arterial Blood Pressure 169/61 Arterial Blood Pressure 178/61 Arterial Blood Pressure 176/59 Arterial Blood Pressure 161/60 Arterial Blood Pressure 179/61 Arterial Blood Pressure 179/63 Arterial Blood Pressure 155/53 Arterial Blood Pressure 156/55 Arterial Blood Pressure 169/64 Arterial Blood Pressure 136/48 GENERAL EXAM: Alert, oriented, very pleasant 82-year-old male patient, on room air, comfortable in no apparent distress. HEAD: Normocephalic. EYES: Normal reaction of pupils, equal size. NOSE: Clear with pink turbinates. THROAT: No erythema or exudates. NECK: No masses, no JVD. CHEST: No chest wall deformity. LUNGS: Equal air entry with no crackles, wheeze, rhonchi or dullness. CVS: S1 and S2 normal with no audible murmur, regular rhythm. ABDOMEN: No hepatosplenomegaly, normal bowel sounds, no guarding or rigidity. SPINE: No scoliosis or deformity SKIN: No rashes CENTRAL NERVOUS SYSTEM: No focal deficits, tone is normal in all 4 extremities. EXTREMITIES: Bilateral groin puncture site is clean and dry. There is no peripheral edema. No clubbing, no cyanosis. Peripheral pulses are intact. Results - Laboratory Findings CBC and BMP: 11/20/22 09:49 11/20/22 09:49 PT/INR, D-dimer PT 12.2 sec (9.0-12.0) H 11/20/22 09:49 INR 1.2 (<1.2) H 11/20/22 09:49 Abnormal lab findings: Abnormal Labs 11/20/22 11/20/22 11/20/22 06:15 09:49 09:49 WBC 3.3 L RBC 3.42 L 2.82 L Hgb 11.3 L 9.4 L D Hct 34.4 L 28.2 L MCV 100.5 H 100.3 H Plt Count 108 L Lymphocytes # 0.8 L PT 12.2 H INR 1.2 H APTT 30.8 H BUN Calcium Total Protein Albumin 11/20/22 09:49 WBC RBC Hgb Hct MCV Plt Count Lymphocytes # PT INR APTT BUN 22 H Calcium 8.0 L Total Protein 5.5 L Albumin 3.2 L - Diagnostic Findings Chest x-ray: image reviewed Assessment and Plan Assessment: Severe aortic stenosis status post transcatheter aortic valve replacement using a 26 mm norberto III ultra Sneed valve. Postoperative day #0 Coronary artery disease with previous myocardial infarction Hypertension Hyperlipidemia History of CVA History of COPD History of gout History of chronic anemia History of prostate disorder Plan: The patient was seen and evaluated Chest x-ray, labs and medications reviewed Currently stable and on room air Continue to monitor closely here in the intensive care unit We will continue to follow and make further recommendations based on his clinical status I have personally seen and examined the patient, performed the documentation and the assessment and plan as written. Number of minutes spent on the visit: 20.
[2022-11-20] MEDS: hydrALAZINE HCL 20 MG/ML 1 ML VIAL IVP PRN ×2 (15:05→22:20)
[2022-11-20] MEDS: HYDROcodone/APAP 5-325MG 1 EACH TAB PO PRN (15:06)
[2022-11-20] MEDS ORDERED: carvediloL 12.5 MG TAB PO SCH (17:30)
[2022-11-20] MEDS: CALCIUM CARBONATE 500 MG CHEWABLE PO SCH (20:56)
[2022-11-20] MEDS ORDERED: ATORVASTATIN 40 MG TAB PO SCH (21:00)
[2022-11-20] MEDS ORDERED: FERROUS SULFATE 325 MG TAB PO SCH (21:00)
[2022-11-20] MEDS ORDERED: TAMSULOSIN 0.4 MG CAP.ER.24H PO SCH (21:00)
[2022-11-20] MEDS: HEPARIN SODIUM,PORCINE/PF 5,000 UNIT/0.5 ML SYRINGE SQ SCH (23:52)
[2022-11-21] MEDS: hydrALAZINE HCL 20 MG/ML 1 ML VIAL IVP PRN (04:24)
[2022-11-21 05:35] LABS: Ionized Calcium 5.1 mg/dL (4.5-5.3)
[2022-11-21 05:40] LABS: Potassium 3.9 mmol/L (3.5-5.1)
[2022-11-21 05:41] LABS: Albumin 3.6 g/dL (3.5-5.0); Calcium 8.7 mg/dL (8.4-10.2); Magnesium 1.9 mg/dL (1.6-2.3)
[2022-11-21] MEDS: HYDROcodone/APAP 5-325MG 1 EACH TAB PO PRN (06:32)
[2022-11-21] MEDS ORDERED: POTASSIUM CHLORIDE ER 20 MEQ TAB.ER PO STA (06:46)
[2022-11-21] MEDS ORDERED: MAGNESIUM SULFATE-D5W PMX 1 GM in DEXTROSE/WATER 1 100ML.BAG IVPB SCH (07:00)
--- NOTE | 2022-11-21 07:12 | XR ---
EXAMINATION TYPE: XR chest 1V portable DATE OF EXAM: 11/21/2022 Comparison: 11/20/2022 Clinical History: 82-year-old male Post Operative Cardiac Surgery Findings: Reverse right shoulder arthroplasty partially seen. Endovascular aortic valve replacement noted. Hear t mildly enlarged. Patient rotated towards the right ultrasound and normal cardiac mediastinal contou rs. Interstitial density persists. Patchy retrocardiac density persists. Mild patchy density at the r ight base medially slightly increased. Impression: Mild cardiomegaly and interstitial prominence, possible mild pulmonary vascular congestion, similar t o minimally worsened.
[2022-11-21] MEDS: HEPARIN SODIUM,PORCINE/PF 5,000 UNIT/0.5 ML SYRINGE SQ SCH (07:26)
[2022-11-21] MEDS ORDERED: PANTOPRAZOLE 40 MG TABLET PO SCH (07:30)
[2022-11-21] MEDS ORDERED: carvediloL 12.5 MG TAB PO SCH (07:30)
[2022-11-21] MEDS ORDERED: SENNOSIDES-DOCUSATE SODIUM 1 EACH TAB PO ONE (08:00)
[2022-11-21] MEDS ORDERED: LORATADINE 10 MG TAB PO SCH (09:00)
[2022-11-21] MEDS ORDERED: LOSARTAN 50 MG TAB PO SCH (09:00)
[2022-11-21] MEDS ORDERED: MULTIVITAMINS, THERA 1 EACH TAB PO SCH (09:00)
[2022-11-21] MEDS ORDERED: hydroCHLOROthiazide 25 MG TAB PO SCH (09:00)
[2022-11-21] MEDS ORDERED: CHOLECALCIFEROL 25 MCG (1000 IU) TABLET PO SCH (09:00)
[2022-11-21] MEDS ORDERED: ASCORBIC ACID 500 MG TAB PO SCH (09:00)
[2022-11-21] MEDS ORDERED: MAGNESIUM OXIDE 400 MG TAB PO SCH (09:00)
[2022-11-21] MEDS ORDERED: ASPIRIN 81 MG PO SCH (09:00)
[2022-11-21] MEDS ORDERED: allopurinoL 100 MG TAB PO SCH (09:00)
[2022-11-21] MEDS: CALCIUM CARBONATE 500 MG CHEWABLE PO SCH (09:28)
[2022-11-21 09:36] VITALS: TEMP 98.4
[2022-11-21] MEDS: IPRATROPIUM 0.5 MG/2.5 ML NEBU INHALATION SCH ×2 (09:44→12:25)
--- NOTE | 2022-11-21 09:44 | P.DS ---
Providers Date of admission: 11/20/22 05:56 Expected date of discharge: 11/21/22 Attending physician: Lamont Lugo Consults: 11/20/22 09:32 Consult Physician Routine Consulting Provider: Dom Ramos Consult Reason/Comments: post tavr Do you want consulting provider notified?: Already Contacted Consult Physician Routine Consulting Provider: Julián Raya Consult Reason/Comments: [employer] Consult: post cardiac surgery Do you want consulting provider notified?: Yes Primary care physician: [facility] Course: MEDICAL HISTORY: 1. Calcified aortic valve with severe symptomatic aortic valve stenosis, NYHA class II 2. Coronary artery disease with previous myocardial infarction 3. Hypertension 4. Hyperlipidemia 5. CVA 6. COPD, previous tobacco dependence 7. Gout 8. Prostate disorder 9. Chronic anemia 10. Daily EtOH use PROCEDURE: 1. Percutaneous aortic valve implantation using a 26 mm Sneed Nikki valve under JUAN PABLO and fluoroscopy guidance 2. Transesophageal echocardiography performed by anesthesia 3. Ultrasound-guided access and repair of right and left femoral artery access site by Perclose closure device 4. Placement of temporary pacemaker wire 5. Aortic root angiography HISTORY OF PRESENT ILLNESS: This is a 82-year-old gentleman who follows on an outpatient basis with Nurse Practitioner Linh Puentes for primary care and Dr. BOOM Javier for cardiology. He has a known history of severe aortic stenosis and has been symptomatic with increased exertional dyspnea.. He had been referred to structural heart clinic for evaluation for transcatheter aortic valve replacement after heart catheterization and transesophageal echocardiogram were completed. Echocardiography demonstrated normal systolic function with EF 60%, aortic valve area 0.7 cm with a peak/mean gradient 64/31 mmHg. Heart catheterization showed no occlusive CAD. After workup was completed STS risk score was calculated along with incremental risk and the patient was felt to be better served with transcatheter aortic valve replacement instead of surgical AVR. The usual course of TAVR was discussed in detail the patient, risks and benefits were reviewed, shared decision making between cardiology, surgery, and the patient/family took place, and the patient consented to proceed with the procedure. HOSPITAL COURSE: The patient was brought to the hospital on 11/20/22, was taken to the extended stay area, prepared in the usual fashion, and subsequently taken to the cardiac catheterization laboratory where Dr. Lugo and Dr. Ramos co mpleted TAVR procedure under general anesthesia with fluoroscopy and JUAN PABLO. The valve was deployed under rapid ventricular pacing and proceeded without event. At the end of the procedure there was no gradient, hemodynamics were felt to be acceptable, and there was no evidence of significant perivalvular leak. Upon completion of the procedure the patient was extubated and was transferred to the cardiovascular intensive care unit where he was recovered and monitored hemodynamically. His heart rate was in the 40s for a short period and his beta olesya was discontinued. His oxygen was titrated down, he was tolerating oral diet, his pain was controlled, follow-up TTE demonstrated normal left ventricular systolic function, there was no significant gradient across the aortic valve and no significant paravalvular leak, and he was ready to be discharged to home on postoperative day #1. He received written and verbal instruction regarding his medications, activity restrictions, signs and symptoms requiring physician notification, and follow-up appointments. Beta olesya was not continued on discharge due to bradycardia, hydralazine was added for blood pressure control. Patient Condition at Discharge: Stable Plan - Discharge Summary Discharge Rx Participant: No New Discharge Prescriptions: New hydrALAZINE HCL [Apresoline] 25 mg PO TID #90 tab Continue Loratadine 10 mg PO DAILY Ferrous Sulfate [Iron] 325 mg PO HS Multivit-Min/Folic/Vit K/Lycop [Men's Multivitamin Tablet] 1 each PO DAILY Omeprazole [PriLOSEC] 20 mg PO AC-BRKFST Losartan [Cozaar] 50 mg PO DAILY Gabapentin [Neurontin] 200 mg PO BID PRN PRN Reason: Pain Hydrocodone/Acetaminophen [Hydrocodone/Acetaminophen 5-325] 1 each PO Q8HR PRN PRN Reason: Pain Atorvastatin [Lipitor] 40 mg PO HS #90 tablet Ascorbic Acid [Vitamin C] 500 mg PO DAILY Aspirin [Adult Low Dose Aspirin EC] 81 mg PO DAILY Magnesium 420 mg PO DAILY Tamsulosin [Flomax] 0.8 mg PO HS Cholecalciferol [Vitamin D3 (25 Mcg = 1000 Iu)] 25 mcg PO DAILY Ipratropium [place] [Atrovent Hfa] 2 puff INHALATION BID Calcium Carbonate [Calcium] 200 mg PO BID hydroCHLOROthiazide 25 mg PO DAILY allopurinoL 100 mg PO DAILY Diclofenac Sodium Gel [Voltaren Gel] 2 gm TOPICAL DIRECTED PRN PRN Reason: Pain Discontinued carvediloL 25 mg PO BID Discharge Medication List Ascorbic Acid [Vitamin C] 500 mg PO DAILY 05/20/22 [History] Aspirin [Adult Low Dose Aspirin EC] 81 mg PO DAILY 05/20/22 [History] Calcium Carbonate [Calcium] 200 mg PO BID 05/20/22 [History] Cholecalciferol [Vitamin D3 (25 Mcg = 1000 Iu)] 25 mcg PO DAILY 05/20/22 [History] Diclofenac Sodium Gel [Voltaren Gel] 2 gm TOPICAL DIRECTED PRN 05/20/22 [History] Ferrous Sulfate [Iron] 325 mg PO HS 05/20/22 [History] Gabapentin [Neurontin] 200 mg PO BID PRN 05/20/22 [History] Hydrocodone/Acetaminophen [Hydrocodone/Acetaminophen 5-325] 1 each PO Q8HR PRN 05/20/22 [History] Ipratropium [place] [Atrovent Hfa] 2 puff INHALATION BID 05/20/22 [History] Loratadine 10 mg PO DAILY 05/20/22 [History] Losartan [Cozaar] 50 mg PO DAILY 05/20/22 [History] Magnesium 420 mg PO DAILY 05/20/22 [History] Multivit-Min/Folic/Vit K/Lycop [Men's Multivitamin Tablet] 1 each PO DAILY 05/20/22 [History] Omeprazole [PriLOSEC] 20 mg PO AC-BRKFST 05/20/22 [History] Tamsulosin [Flomax] 0.8 mg PO HS 05/20/22 [History] allopurinoL 100 mg PO DAILY 05/20/22 [History] hydroCHLOROthiazide 25 mg PO DAILY 05/20/22 [History] Atorvastatin [Lipitor] 40 mg PO HS #90 tablet 10/16/22 [Rx] hydrALAZINE HCL [Apresoline] 25 mg PO TID #90 tab 11/21/22 [Rx] Follow up Appointment(s)/Referral(s): Iain Javier MD [STAFF PHYSICIAN] - 11/27/22 4:00 pm (Your appointment 11/27/22 is for a groin check. You also have the following post TAVR appointments with Dr. Javier: 01/20/23 @ 1 pm for echo 01/27/23 @ [address] Javier 11/14/23 @ 1 pm for echo 11/26/23 @ 1:[address] Javier) Linh Puentes, [place] [REFERRING] - As Needed Clinic,Structural Heart [NON-STAFF] - 01/20/23 12:30 pm (Please come to TAVR clinic 01/20/23 prior to your echo appointment with Dr. Javier. You also have an appointment at the TAVR clinic 11/14/23 @ 12:30 pm prior to your 1 year echo appointment with Dr. Javier) Ambulatory/Diagnostic Orders: Complete Blood Count w/diff [LAB.AMB] Location: None Selected Complete Blood Count w/diff [LAB.AMB] Location: None Selected Comprehensive Metabolic Panel [LAB.AMB] Location: None Selected Comprehensive Metabolic Panel [LAB.AMB] Location: None Selected Activity/Diet/Wound Care/Special Instructions: DISCHARGE INSTRUCTIONS: 1. No driving for 1 week, or until physician gives their ok. 2. No lifting, pushing, or pulling more than 5-10 pounds for 1 week. 3. Hold both groins when you cough or sneeze for the next 2 weeks. Bruising is common, but report increased swelling, pain or fever >101F 4. Shower daily. No pool, hot tub, or bathtub for 1 week 5. No powders, lotions, ointments on incisions. 6. No straining, including for bowel movements. Use stool softner if necessary 7. Stairs are not an issue. Go slowly, using handrail and take 1 step at a time. Ambulate several times daily 8. Continue pain control per as needed orders. 9. Take only the medications listed on your discharge form 10. Eat low salt (limited to 2 grams or 2000 milligrams) daily, avoid adding salt, avoid canned/processed foods 11. Take your weight daily in the morning and record, bring with you to your follow up appointments 12. Keep all follow up appointments. You will need a valve clinic appointment at 30 days and 1 year post procedure for follow up 13. You have been referred to and are expected to begin Cardiac Rehab in approximately 4 weeks. 14. You will need antibiotics prior to any dental work, including cleanings, and any surgeries to prevent Endocarditis (bacterial infection in your heart) For any questions or concerns please call your valve coordinators: Anna or Nelson @ Discharge Disposition: HOME SELF-CARE
[2022-11-21 10:22] VITALS: PULSE 69; RESP 20
--- NOTE | 2022-11-21 10:35 | P.PN ---
Subjective Progress Note Date: 11/21/22 This is a very pleasant 82-year-old male patient with a known history of coronary artery disease, myocardial infarction, hypertension, hyperlipidemia, CVA, COPD, gout, prostate disorder, chronic anemia. He's also found to have severe aortic stenosis and was brought in today for an elective transcatheter aortic valve replacement using a 26 mm norberto III ultra Sneed valve. He also had insertion of a right ventricular temporary pacer wire. He is seen in the intensive care unit postoperatively. He is sitting up in bed. Awake and alert in no acute distress. Maintaining good O2 saturations in the 90s on room air. Chest x-ray shows cardiomegaly with low lung volumes and bibasilar scarring. He's afebrile. Somewhat bradycardic with heart rate in the 40s. White count 2.3. Hemoglobin 9.4. Platelets 108. INR 1.2. Sodium 137. Potassium 3.5. Bicarb 25. BUN 22. Creatinine 0.98. Glucose 94. He has normal saline at 50 mL per hour. Bronchodilators as needed. Heparin for DVT prophylaxis. The patient is seen today 11/21/2022 in follow-up in the intensive care unit. He is currently resting comfortably in bed. Awake and alert in no acute distress. No issues overnight. He is maintaining O2 saturations in the 90s on room air. No IV fluids. Echocardiogram pending. Sodium 133. Potassium 3.9. Bicarb 22. BUN 17. Creatinine 0.97. Glucose 118. Heparin for DVT prophylaxis. Objective - Vital Signs Vital signs: Vital Signs Temp 98.4 F 11/21/22 08:00 Pulse 69 11/21/22 10:00 Resp 20 11/21/22 10:00 BP 160/69 11/21/22 10:00 Pulse Ox 96 11/21/22 10:00 FiO2 Intake & Output 11/20/22 11/21/22 11/21/22 18:59 06:59 18:59 Intake Total 2090 590 Output Total 650 800 275 Balance 1440 -210 -275 Weight 80.286 kg 79.4 kg Intake: IV 1400 Intake, IV Titration 450 50 Amount Magnesium Sulfate-D5w Pmx 100 1 gm In Dextrose/Water 1 100ml.bag @ 100 mls/hr IVPB ONCE ONE Rx#: [id number] Sodium Chloride 0.9% 1, 300 000 ml @ 50 mls/hr IV . Q20H [place] Rx#:[id number] ceFAZolin 2 gm In Sodium 50 50 Chloride 0.9% 50 ml @ 100 mls/hr IVPB Q8HR [place] Rx# :[id number] Oral 240 540 Output: Urine 650 800 275 Other: Voiding Method Urinal # Voids 1 ABP, PAP, CO, CI - Last Documented Arterial Blood Pressure 176/55 - Exam GENERAL EXAM: Alert, 82-year-old male patient, on room air, comfortable in no apparent distress. HEAD: Normocephalic. EYES: Normal reaction of pupils, equal size. NOSE: Clear with pink turbinates. THROAT: No erythema or exudates. NECK: No masses, no JVD. CHEST: No chest wall deformity. LUNGS: Equal air entry with no crackles, wheeze, rhonchi or dullness. CVS: S1 and S2 normal with no audible murmur, regular rhythm. ABDOMEN: No hepatosplenomegaly, normal bowel sounds, no guarding or rigidity. SPINE: No scoliosis or deformity SKIN: No rashes CENTRAL NERVOUS SYSTEM: No focal deficits, tone is normal in all 4 extremities. EXTREMITIES: Bilateral groin puncture site is clean and dry. There is no peripheral edema. No clubbing, no cyanosis. Peripheral pulses are intact. - Labs CBC & Chem 7: 11/20/22 09:49 11/21/22 04:48 Labs: Abnormal Lab Results - Last 24 Hours (Table) 11/20/22 11/21/22 Range/Units 09:49 04:48 Sodium 133 L (137-145) mmol/L BUN 22 H (9-20) mg/dL Glucose 118 H (74-99) mg/dL Calcium 8.0 L (8.4-10.2) mg/dL Total Protein 5.5 L 6.0 L (6.3-8.2) g/dL Albumin 3.2 L (3.5-5.0) g/dL Assessment and Plan Assessment: Severe aortic stenosis status post transcatheter aortic valve replacement using a 26 mm norberto III ultra Sneed valve. Postoperative day #1 Coronary artery disease with previous myocardial infarction Hypertension Hyperlipidemia History of CVA History of COPD History of gout History of chronic anemia History of prostate disorder Plan: The patient was seen and evaluated Labs and medications reviewed Currently stable and on room air Follow-up echocardiogram pending Home once cleared by CT services/cardiology I have personally seen and examined the patient, performed the documentation and the assessment and plan as written. Number of minutes spent on the visit: 10.
[2022-11-21 11:13] VITALS: BP 150/71
[2022-11-21] MEDS ORDERED: hydrALAZINE HCL 25 MG TAB PO SCH (16:00)
--- NOTE | 2022-11-21 18:39 | CA ---
Transthoracic Echo Report Name: Sean Garcia Age: 82 Gender: M : 1940 Exam Date: 11/21/2022 08:34 Exam Location: [facility] Ht (in): 64 Wt (lb): 177 Ordering Physician: Anna Valentine Attending/Referring Phys: [id number], Serge Industrial Truck Driver Donya Minor RDCS Procedure CPT: Indications: post TAVR Cardiac Hx: TAVR Technical Quality: Good Contrast 1: Total Dose (mL): Contrast 2: Total Dose (mL): MEASUREMENTS (Male / Female) Normal Values 2D ECHO LV Diastolic Diameter PLAX 4.5 cm 4.2 - 5.9 / 3.9 - 5.3 cm LV Systolic Diameter PLAX 3.2 cm IVS Diastolic Thickness 1.7 cm 0.6 - 1.0 / 0.6 - 0.9 cm LVPW Diastolic Thickness 1.5 cm 0.6 - 1.0 / 0.6 - 0.9 cm LV Relative Wall Thickness 0.7 RV Internal Dim ED PLAX 3.4 cm LVOT Diameter 2.3 cm LA Systolic Diameter LX 4.1 cm 3.0 - 4.0 / 2.7 - 3.8 cm LV Diastolic Volume MOD BP 105.2 cm??? 67 - 155 / 56 - 104 cm??? LV Systolic Volume MOD BP 38.1 cm??? 22 - 58 / 19 - 49 cm??? LV Ejection Fraction MOD BP 63.8 % >= 55 % LV Diastolic Volume MOD 4C 126.3 cm??? LV Systolic Volume MOD 4C 40.0 cm??? LV Ejection Fraction MOD 4C 68.3 % LV Diastolic Length 4C 7.9 cm LV Systolic Length 4C 6.1 cm LV Diastolic Volume MOD 2C 87.6 cm??? LV Systolic Volume MOD 2C 35.0 cm??? LV Ejection Fraction MOD 2C 60.0 % LV Diastolic Length 2C 7.8 cm LV Systolic Length 2C 6.5 cm LA Volume 58.8 cm??? 18 - 58 / 22 - 52 cm??? M-MODE Aortic Root Diameter MM 3.7 cm DOPPLER AV Peak Velocity 197.8 cm/s AV Peak Gradient 15.6 mmHg AV Mean Velocity 158.1 cm/s AV Mean Gradient 10.9 mmHg AV Velocity Time Integral 42.3 cm AI Peak Velocity 233.5 cm/s AI Peak Gradient 21.8 mmHg AI Pressure Half Time 943.9 ms LVOT Peak Velocity 149.9 cm/s LVOT Peak Gradient 9.0 mmHg AV Area Cont Eq pk 3.2 cm??? MV Area PHT 2.9 cm??? Mitral E Point Velocity 104.7 cm/s Mitral A Point Velocity 128.9 cm/s Mitral E to A Ratio 0.8 MV Deceleration Time 261.9 ms MV E' Velocity 5.9 cm/s Mitral E to MV E' Ratio 17.7 TR Peak Velocity 324.6 cm/s TR Peak Gradient 42.1 mmHg Right Ventricular Systolic Press 45.5 mmHg FINDINGS Left Ventricle Left ventricular ejection fraction is estimated at 55-60 %. Left ventricular cavity size normal. Moderately increased septal wall thickness. Right Ventricle Mild right ventricular dilatation. Moderate pulmonary hypertension. Right ventricular systolic pressure estimated at 46 mm hg. Right Atrium Normal right atrial size. Left Atrium Mildly increased left atrial diameter. Mildly increased left atrial area. Mitral Valve Structurally normal mitral valve. Mitral annular calcification. Trace to mild mitral regurgitation. Aortic Valve Post TAVR. Normal functioning bioprosthetic valve with peak velocity 2 m/s. Peak gradient 16 mmHg and mean gradient 11 mmHg. Trace to mild aortic regurgitation. AOV Area 3.2 cm. Trace perivalvular AI Tricuspid Valve Structurally normal tricuspid valve. Mild tricuspid regurgitation. Pulmonic Valve Structurally normal pulmonic valve. Trace pulmonic regurgitation. Pericardium Normal pericardium. No pericardial effusion. Aorta Normal size aortic root and proximal ascending aorta. CONCLUSIONS Normal LV systolic function Stable bioprosthetic valve mildly increased gradients and minimal any valvular leak No pericardial effusion Previewed by: Dr. Jerry Alvarenga MD (Electronically Signed) Final Date: 21 Nov 2022 18:39
[2022-11-21] MEDS ORDERED: SENNOSIDES-DOCUSATE SODIUM 1 EACH TAB PO SCH (21:00)
== END 2022-11-21 13:07 | disposition home or self-care (01) | DRG 267 ==
LOC: 2ORMAIN 05:56 → 2SICU 09:01
PROVIDERS: ADMIT Internal Medicine Interventional Cardiology; ATTEND Internal Medicine Interventional Cardiology
PROC: 02RF38Z Replacement of Aortic Valve with Zooplastic Tissue, Percutaneous Approach (ICD-10-PCS; principal; 2022-11-20 08:00)
PROC: 5A1223Z Performance of Cardiac Pacing, Continuous (ICD-10-PCS; 2022-11-20 08:00)
DX: I35.2 Nonrheumatic aortic (valve) stenosis with insufficiency (principal); Z00.6 Encounter for examination for normal comparison and control in clinical research program; R00.1 Bradycardia, unspecified; D64.9 Anemia, unspecified; I10 Essential (primary) hypertension; J44.9 Chronic obstructive pulmonary disease, unspecified; I25.10 Atherosclerotic heart disease of native coronary artery without angina pectoris; E78.5 Hyperlipidemia, unspecified; M10.9 Gout, unspecified; N42.9 Disorder of prostate, unspecified; H91.90 Unspecified hearing loss, unspecified ear; R01.1 Cardiac murmur, unspecified; F10.90 Alcohol use, unspecified, uncomplicated; I25.2 Old myocardial infarction; Z87.891 Personal history of nicotine dependence; Z79.82 Long term (current) use of aspirin; Z79.899 Other long term (current) drug therapy; Z79.51 Long term (current) use of inhaled steroids; Z88.8 Allergy status to other drugs, medicaments and biological substances; Z86.73 Personal history of transient ischemic attack (TIA), and cerebral infarction without residual deficits; Z82.49 Family history of ischemic heart disease and other diseases of the circulatory system
CPT/HCPCS: 33210; 33361; 71045; 80053; 82330; 83735; 85025; 85610; 85730; 86850; 86900; 86901; 93306; 93312; 93320; 93325; 94640

== ENCOUNTER → 2023-01-27 | Outpatient (CLI) | payer OTHER ==
[2023-01-27 20:50] LABS: BUN/Creat Ratio 21.64 Ratio (12.00-20.00); Blood Urea Nitrogen 30.3 mg/dL (9.0-27.0); Calcium 9.5 mg/dL (8.7-10.3); Carbon Dioxide 21.5 mmol/L (21.6-31.8); Chloride 103 mmol/L (96-109); Glucose 101 mg/dL (70-110); Potassium 4.2 mmol/L (3.5-5.5); Sodium 139 mmol/L (135-145)
[2023-01-27 21:41] LABS: Basophils # (A) 0.02 X 10*3/uL (0.00-0.10); Basophils % (A) 0.5 %; Eosinophils # (A) 0.04 X 10*3/uL (0.04-0.35); HCT 30.6 % (39.6-50.0); HGB 10.1 d/dL (13.0-17.0); Lymphocytes # (A) 0.61 X 10*3/uL (0.90-5.00); Lymphocytes % (A) 15.1 %; MCH 33.9 pg (27.0-32.0); MCV 102.7 FL (80.0-97.0); Mean Platelet Volume 12.4 FL (9.5-12.2); Monocytes # (A) 0.54 X 10*3/uL (0.20-1.00); Monocytes % (A) 13.4 %; NRBC Per 100 WBC 0 X 10*3/uL (0.00-0.01); Neutrophils # (A) 2.82 X 10*3/uL (1.80-7.70); Neutrophils % (A) 69.8 %; Platelet Count 136 X 10*3/uL (140-440); RBC 2.98 X 10*6/uL (4.40-5.60); WBC 4.04 X 10*3/uL (4.50-10.00)
== END | disposition home or self-care (01) ==
LOC: LABWHC1 14:43
PROVIDERS: ATTEND Internal Medicine Interventional Cardiology
DX: I10 Essential (primary) hypertension (principal); I35.0 Nonrheumatic aortic (valve) stenosis
CPT/HCPCS: 36415; 80048; 84443; 85025

== ENCOUNTER 2023-04-02 17:13 | Emergency (ER) | payer OTHER ==
[2023-04-02 17:23] VITALS: RESP 18; TEMP 98.2
--- NOTE | 2023-04-02 18:13 | ED ---
Abdominal Pain HPI - General Chief Complaint: Abdominal Pain Stated Complaint: abd pain Time Seen by Provider: 04/02/23 17:22 Source: patient, family Mode of arrival: wheelchair Limitations: no limitations - History of Present Illness Initial Comments: This patient is an 82-year-old man who presents to have evaluation of right lower quadrant abdominal pain. The pain does sometimes radiate towards his right groin or testicle. He has not noted swelling. He states he did have hernia surgery but it was long time ago now. The patient states this is been going on for the past 2-3 days. He describes it as a sharp cramping that is intermittent. He states he gets a little worse when he is upright or standing. The pain is better if he lies supine. He has not noted any associated symptoms. He did go and see his physician, had an abdominal x-ray and was told that she had constipation. The patient states he did have a bowel movement probably 2-3 days ago. It seemed relatively normal. He has not noted change in urination. MD Complaint: abdominal pain -: days(s) Location: RLQ Radiation: none Migration to: no migration Severity: moderate Quality: cramping Consistency: intermittent Improves With: other (Lying supine) Worsens With: other (Standing or walking) Associated Symptoms: denies other symptoms - Related Data Home Medications Medication Instructions Recorded Confirmed Aspirin [Adult Low Dose Aspirin EC] 81 mg PO DAILY 05/20/22 04/02/23 Cholecalciferol [Vitamin D3 (25 25 mcg PO DAILY 05/20/22 04/02/23 Mcg = 1000 Iu)] Ferrous Sulfate [Iron] 325 mg PO HS 05/20/22 04/02/23 Gabapentin [Neurontin] 200 mg PO BID 05/20/22 04/02/23 Ipratropium Pinon [Atrovent Hfa] 2 puff INHALATION RT-BID 05/20/22 04/02/23 Loratadine 10 mg PO DAILY 05/20/22 04/02/23 Losartan [Cozaar] 50 mg PO DAILY 05/20/22 04/02/23 Multivit-Min/Folic/Vit K/Lycop 1 tab PO DAILY 05/20/22 04/02/23 [Men's Multivitamin Tablet] Omeprazole [PriLOSEC] 20 mg PO DAILY 05/20/22 04/02/23 Tamsulosin [Flomax] 0.8 mg PO HS 05/20/22 04/02/23 allopurinoL 100 mg PO DAILY 05/20/22 04/02/23 hydroCHLOROthiazide 25 mg PO DAILY 05/20/22 04/02/23 Acetaminophen Tab [Tylenol Tab] 1,000 mg PO BID 04/02/23 04/02/23 Calcium Citrate 200mg 400 mg PO DAILY 04/02/23 04/02/23 Magnesium Oxide 420mg 420 mg PO DAILY 04/02/23 04/02/23 Previous Rx's Medication Instructions Recorded Atorvastatin [Lipitor] 40 mg PO HS #90 tablet 10/16/22 hydrALAZINE HCL [Apresoline] 25 mg PO TID #90 tab 11/21/22 Lactulose 10 gm PO DAILY PRN #15 ml 04/02/23 Allergies Allergy/AdvReac Type Severity Reaction Status Date / Time cyclobenzaprine Allergy Unknown Confused, Verified 04/02/23 19:18 [From Flexeril] had stroke. celecoxib [From Celebrex] Allergy Rash/Hives Verified 04/02/23 19:18 Review of Systems ROS Statement: Those systems with pertinent positive or pertinent negative responses have been documented in the HPI. ROS Other: All systems not noted in ROS Statement are negative. Constitutional: Denies: fever, chills Respiratory: Denies: cough, dyspnea Cardiovascular: Denies: chest pain, palpitations, edema Gastrointestinal: Reports: abdominal pain. Denies: nausea, vomiting, diarrhea, constipation Genitourinary: Reports: testicular pain. Denies: dysuria, frequency, hematuria Musculoskeletal: Denies: back pain Skin: Denies: rash Neurological: Denies: headache, weakness, numbness Past Medical History Past Medical History: COPD, CVA/TIA, Hearing Disorder / Deafness, Hyperlipidemia, Hypertension, Myocardial Infarction ([place]), Prostate Disorder Additional Past Medical History / Comment(s): Aortic Valve stenosis,Heart murmur, possible CVA or heart attack-pt not sure, back pain, gout, uses cane, hard of hearing-no hearing aides. Last Myocardial Infarction Date:: 2020? History of Any Multi-Drug Resistant Organisms: None Reported Past Surgical History: Appendectomy, Heart Catheterization, Orthopedic Surgery Additional Past Surgical History / Comment(s): Reverse shoulder, right toe surgery, left hand ring finger surgery, colonoscopy, JUAN PABLO. Past Anesthesia/Blood Transfusion Reactions: No Reported Reaction Additional Past Anesthesia/Blood Transfusion Reaction / Comment(s): No hx blood transfusion. Past Psychological History: No Psychological Hx Reported Smoking Status: Former smoker Past Alcohol Use History: Daily Past Drug Use History: None Reported - Past Family History Mother Family Medical History: Cancer Additional Family Medical History / Comment(s): Breast cancer. Father Family Medical History: Cancer Brother(s) Family Medical History: Cancer, Myocardial Infarction ([place]) General Exam Limitations: no limitations General appearance: alert, in no apparent distress Head exam: Present: atraumatic, normocephalic Eye exam: Present: normal appearance. Absent: scleral icterus, conjunctival injection Neck exam: Present: normal inspection Respiratory exam: Present: normal lung sounds bilaterally. Absent: respiratory distress, wheezes, rales, rhonchi, stridor Cardiovascular Exam: Present: regular rate, normal rhythm, normal heart sounds. Absent: systolic murmur, diastolic murmur, rubs, gallop GI/Abdominal exam: Present: soft. Absent: distended, tenderness, guarding, rebound, rigid, mass Extremities exam: Present: normal inspection, normal capillary refill. Absent: pedal edema, calf tenderness Back exam: Present: normal inspection. Absent: CVA tenderness (R), CVA tenderness (L) Neurological exam: Present: alert Skin exam: Present: warm, dry, intact, normal color. Absent: rash Course Vital Signs 04/02/23 04/02/23 04/02/23 17:15 17:50 18:51 Temperature 98.2 F Pulse Rate 81 77 61 Respiratory 18 18 18 Rate Blood Pressure 193/92 166/89 168/87 O2 Sat by Pulse 99 97 98 Oximetry 04/02/23 19:59 Temperature 98.2 F Pulse Rate 77 Respiratory 18 Rate Blood Pressure 177/88 O2 Sat by Pulse 98 Oximetry Medical Decision Making - Medical Decision Making The patient had computed tomography scan of the abdomen pelvis which I interpreted as negative for obstruction, free air, hernia or other acute surgical condition Was pt. sent in by a medical professional or institution (, PA, SENIOR PORTFOLIO ANALYST, urgent care, hospital, or longterm...) When possible be specific @ -[No] Did you speak to anyone other than the patient for history (EMS, parent, family, police, friend...)? What history was obtained from this source @ -[No] Did you review nursing and triage notes (agree or disagree)? Why? @ -[I reviewed and agree with nursing and triage notes] Were old charts reviewed (outside hosp., previous admission, EMS record, old EKG, old radiological studies, urgent care reports/EKG's, longterm records)? Report findings @ -[No old charts were reviewed] Differential Diagnosis (chest pain, altered mental status, abdominal pain women, abdominal pain men, vaginal bleeding, weakness, fever, dyspnea, syncope, headache, dizziness, GI bleed, back pain, seizure, CVA, palpatations, mental health, musculoskeletal)? @ -[Differential Abdominal Pain Men: Appendicitis, cholecystitis, diverticulosis, ischemic bowel, pancreatitis, hepatitis, UTI, gastroenteritis, AAA, incarcerated hernia, bowel obstruction, constipation, inflammatory bowel, hepatitis, peptic ulcer disease, splenic infarction, perforated viscus, testicular torsion, this is not meant to be an all-inclusive list EKG interpreted by me (3pts min.). @ -[As above] X-rays interpreted by me (1pt min.). @ -[None done] CT interpreted by me (1pt min.). @ -[I interpreted as above U/S interpreted by me (1pt. min.). @ -[None done] What testing was considered but not performed or refused? (CT, X-rays, U/S, labs)? Why? @ -[None] What meds were considered but not given or refused? Why? @ -[None] Did you discuss the management of the patient with other professionals (professionals i.e. , PA, SENIOR PORTFOLIO ANALYST, lab, RT, psych nurse, social sciences professor, talent analyst, teacher, occupational medicine officer, case supervisor)? Give summary @ -[No] Was smoking cessation discussed for >3mins.? @ -[No] Was critical care preformed (if so, how long)? @ -[No] Were there social determinants of health that impacted care today? How? (Homelessness, low income, unemployed, alcoholism, drug addiction, transportation, low edu. Level, literacy, decrease access to med. care, penitentiary, rehab)? @ -[No] Was there de-escalation of care discussed even if they declined (Discuss DNR or withdrawal of care, Hospice)? DNR status @ -[No] What co-morbidities impacted this encounter? (DM, HTN, Smoking, COPD, CAD, Cancer, CVA, ARF, Chemo, Hep., AIDS, mental health diagnosis, sleep apnea, morbid obesity)? @ -[None] Was patient admitted / discharged? Hospital course, mention meds given and route, prescriptions, significant lab abnormalities, going to OR and other pertinent info. @ -[Patient is an 82-year-old man presenting with abdominal pain. He does have some mild tenderness on the exam. Given that this is his second evaluation for this condition well perform CT of the abdomen pelvis which is unremarkable. Patient at this point stable for discharge to home with close follow-up and strict return parameters Undiagnosed new problem with uncertain prognosis? @ -[No] Drug Therapy requiring intensive monitoring for toxicity (Heparin, Nitro, Insulin, Cardizem)? @ -[No] Were any procedures done? @ -[No] Diagnosis/symptom? @ -[Acute abdominal pain Acute, or Chronic, or Acute on Chronic? @ -[Acute Uncomplicated (without systemic symptoms) or Complicated (systemic symptoms)? @ -[Uncomplicated Side effects of treatment? @ -[No] Exacerbation, Progression, or Severe Exacerbation? @ -[No] Poses a threat to life or bodily function? How? (Chest pain, [place], [place], pneumonia, PE, COPD, DKA, ARF, appy, cholecystitis, CVA, Diverticulitis, Homicidal, Malik icidal, threat to staff... and all critical care pts) @ -[No] - Lab Data Result diagrams: 04/02/23 18:15 04/02/23 18:15 Lab Results 04/02/23 04/02/23 Range/Units 18:15 18:15 WBC 4.2 (3.8-10.6) k/uL RBC 3.21 L (4.30-5.90) m/uL Hgb 10.8 L (13.0-17.5) gm/dL Hct 32.5 L (39.0-53.0) % MCV 101.3 H (80.0-100.0) fL MCH 33.7 (25.0-35.0) pg MCHC 33.3 (31.0-37.0) g/dL RDW 14.5 (11.5-15.5) % Plt Count 133 L (150-450) k/uL MPV 8.3 Neutrophils % 69 % Lymphocytes % 20 % Monocytes % 8 % Eosinophils % 1 % Basophils % 1 % Neutrophils # 2.9 (1.3-7.7) k/uL Lymphocytes # 0.8 L (1.0-4.8) k/uL Monocytes # 0.3 (0-1.0) k/uL Eosinophils # 0.0 (0-0.7) k/uL Basophils # 0.0 (0-0.2) k/uL Macrocytosis Slight Sodium 139 (137-145) mmol/L Potassium 4.2 (3.5-5.1) mmol/L Chloride 102 (98-107) mmol/L Carbon Dioxide 25 (22-30) mmol/L Anion Gap 12 mmol/L BUN 28 H (9-20) mg/dL Creatinine 1.34 H (0.66-1.25) mg/dL Est GFR (CKD-EPI)AfAm 58 (>60 ml/min/1.73 sqM) Est GFR (CKD-EPI)NonAf 50 (>60 ml/min/1.73 sqM) Glucose 103 H (74-99) mg/dL Calcium 10.0 (8.4-10.2) mg/dL Total Bilirubin 1.0 (0.2-1.3) mg/dL AST 54 (17-59) U/L ALT 20 (4-49) U/L Alkaline Phosphatase 65 (38-126) U/L Total Protein 7.2 (6.3-8.2) g/dL Albumin 4.6 (3.5-5.0) g/dL Amylase 95 (30-110) U/L Lipase 161 (23-300) U/L Disposition Clinical Impression: Abdominal pain Disposition: HOME SELF-CARE Condition: Good Instructions (If sedation given, give patient instructions): Abdominal Pain (ED) Prescriptions: Lactulose 10 gm PO DAILY PRN #15 ml PRN Reason: Constipation Is patient prescribed a controlled substance at d/c from ED?: No Referrals: Curt Jacobs MD [Primary Care Provider] - 1-2 days
[2023-04-02 18:28] LABS: Basophils % (A) 1 %; Eosinophils % (A) 1 %; HCT 32.5 % (39.0-53.0); HGB 10.8 gm/dL (13.0-17.5); Lymphocytes # (A) 0.8 k/uL (1.0-4.8); Lymphocytes % (A) 20 %; MCH 33.7 pg (25.0-35.0); MCHC 33.3 g/dL (31.0-37.0); MCV 101.3 fL (80.0-100.0); Macrocytosis Slight; Mean Platelet Volume 8.3; Monocytes # (A) 0.3 k/uL (0-1.0); Monocytes % (A) 8 %; Neutrophils # (A) 2.9 k/uL (1.3-7.7); Neutrophils % (A) 69 %; Platelet Count 133 k/uL (150-450); RBC 3.21 m/uL (4.30-5.90); RDW 14.5 % (11.5-15.5); WBC 4.2 k/uL (3.8-10.6)
[2023-04-02 18:36] LABS: ALT 20 U/L (4-49); AST 54 U/L (17-59); African American GFR (CKD) 58 (>60 ml/min/1.73 sqM); Albumin 4.6 g/dL (3.5-5.0); Alkaline Phosphatase 65 U/L (38-126); Amylase 95 U/L (30-110); Anion Gap 12 mmol/L; Blood Urea Nitrogen 28 mg/dL (9-20); Carbon Dioxide 25 mmol/L (22-30); Chloride 102 mmol/L (98-107); Glucose 103 mg/dL (74-99); Lipase 161 U/L (23-300); Non-African American GFR(CKD) 50 (>60 ml/min/1.73 sqM); Potassium 4.2 mmol/L (3.5-5.1); Sodium 139 mmol/L (137-145); Total Protein 7.2 g/dL (6.3-8.2)
--- NOTE | 2023-04-02 18:52 | CT ---
EXAMINATION TYPE: CT abdomen pelvis wo con CT DLP: 696.7 mGycm, Automated exposure control for dose reduction was used. DATE OF EXAM: 04/02/2023 6:42 PM COMPARISON: CT TAVR 11/07/2022. CLINICAL INDICATION:Male, 82 years old with history of abdominal pain, RLQ; RLQ abdominal pain, Pt winn d outpatient x-rays done and the DRY END TESTER told him that it was constipation but he thinks something else is going on. TECHNIQUE: Standard CT of the abdomen and pelvis without IV or oral contrast. Lack of IV or oral co ntrast limits evaluation of solid and hollow organ viscera. Coronal and sagittal reformats were perfo rmed. FINDINGS: LOWER CHEST: Subpleural reticular opacities in the bilateral lung bases which were present fibrotic c hanges versus atelectasis. Cardiomegaly with post TAVR changes. Mild coronary artery calcifications. No pericardial effusion. ABDOMEN LIVER: Unremarkable GALLBLADDER AND BILE DUCTS: Unremarkable. PANCREAS: Unremarkable. SPLEEN: Unremarkable. ADRENAL GLANDS: Unremarkable. KIDNEYS AND URETERS: No evidence of hydronephrosis or renal calculus. The ureters are unremarkable. PELVIS BLADDER: Under distended, limiting evaluation. REPRODUCTIVE: Unremarkable. ABDOMEN & PELVIS STOMACH AND BOWEL: Stomach and duodenum are unremarkable. Scattered distal colonic diverticulosis wit hout evidence for acute diverticulitis. No dilatation or surrounding inflammatory changes involving t he appendix. Appendicolith identified within the tip. No evidence of bowel obstruction. PERITONEUM: No evidence of pneumoperitoneum or free fluid. VASCULATURE: Moderate atherosclerotic calcifications are present throughout the abdominal aorta and i ts branches. No evidence of aortic aneurysm. Few pelvic phleboliths. MUSCULOSKELETAL: No acute osseous abnormalities. Moderate disc degeneration changes are present throu ghout the thoracolumbar spine. LYMPH NODES: No gross evidence for lymphadenopathy. SOFT TISSUE/ABDOMINAL WALL: Unremarkable IMPRESSION: 1. No acute abdominal cyst pelvic process. 2. Colonic diverticulosis without evidence for acute diverticulitis.
[2023-04-02 20:06] VITALS: BP 177/88; PULSE 77
== END 2023-04-02 21:00 | disposition home or self-care (01) ==
LOC: EC 17:13
DX: R10.31 Right lower quadrant pain (principal); J44.9 Chronic obstructive pulmonary disease, unspecified; I10 Essential (primary) hypertension; I25.2 Old myocardial infarction; Z87.891 Personal history of nicotine dependence; Z79.82 Long term (current) use of aspirin; Z79.899 Other long term (current) drug therapy; Z88.6 Allergy status to analgesic agent; Z88.8 Allergy status to other drugs, medicaments and biological substances
CPT/HCPCS: 36415; 74176; 80053; 82150; 83690; 85025; 99284

== ENCOUNTER → 2023-07-28 | Outpatient (CLI) | payer OTHER ==
--- NOTE | 2023-07-28 08:15 | US ---
EXAMINATION TYPE: US abdomen complete DATE OF EXAM: 07/28/2023 COMPARISON: CT 04/02/23 CLINICAL INDICATION: Male, 83 years old with history of R94.5 ELEVATED LIVER ENZYMES R10.12 R94.5 ALAINA VATED; LFTs TECHNIQUE: Multiple sonographic images of the abdomen are obtained. FINDINGS: EXAM MEASUREMENTS: Liver Length: 15.0 cm Gallbladder Wall: 0.3 cm CBD: 0.5 cm Spleen: 11.4 cm Right Kidney: 9.4x4.9x4.9 cm Left Kidney: 10.0x5.0x5.3 cm BUFFING WHEEL FORMER AUTOMATIC NOTES: Pancreas: Obscured by bowel gas Liver: upper limit Gallbladder: upper limits, ?pericholecystic fluid? Evidence for sonographic Ro's sign: No CBD: wnl Spleen: wnl Right Kidney: two anechoic areas measured: superior pole: 1.2x1.2x1.1cm inferior pole: 1.4x1.4x1.4cm Left Kidney: No hydronephrosis or masses seen Upper IVC: wnl Abd Aorta: wnl, superior Aorta obscured by gas The liver is homogenous. The intrahepatic portion of the IVC and proximal abdominal aorta are within normal limits. There is no evidence of cholelithiasis. Common bile duct is unremarkable. The splee n is unremarkable. Kidneys are symmetric and free of hydronephrosis. No renal lesions are seen. IMPRESSION: 1. Coarsened hepatic echotexture compatible with hepatic steatosis with borderline hepatomegaly. 2. Simple right renal cysts.
== END | disposition home or self-care (01) ==
LOC: RADUSWWP 07:24
PROVIDERS: ATTEND Family Medicine
DX: N28.1 Cyst of kidney, acquired (principal); R16.0 Hepatomegaly, not elsewhere classified; K76.89 Other specified diseases of liver; R94.5 Abnormal results of liver function studies
CPT/HCPCS: 76700

== ENCOUNTER → 2023-10-22 | Outpatient (CLI) | payer OTHER ==
[2023-10-22 15:05] LABS: Basophils # (A) 0.02 X 10*3/uL (0.00-0.10); Basophils % (A) 0.5 %; Eosinophils # (A) 0.02 X 10*3/uL (0.04-0.35); Eosinophils % (A) 0.5 %; HCT 28.9 % (39.6-50.0); HGB 9.2 g/dL (13.0-17.0); Lymphocytes # (A) 0.78 X 10*3/uL (0.90-5.00); Lymphocytes % (A) 21.3 %; MCH 32.4 pg (27.0-32.0); MCHC 31.8 g/dL (32.0-37.0); MCV 101.8 FL (80.0-97.0); Mean Platelet Volume 10.3 FL (9.5-12.2); Monocytes # (A) 0.44 X 10*3/uL (0.20-1.00); NRBC Per 100 WBC 0 X 10*3/uL (0.00-0.01); Neutrophils # (A) 2.39 X 10*3/uL (1.80-7.70); Neutrophils % (A) 65.4 %; Platelet Count 129 X 10*3/uL (140-440); RBC 2.84 X 10*6/uL (4.40-5.60); RDW 15.9 % (11.5-14.5); WBC 3.66 X 10*3/uL (4.50-10.00)
[2023-10-22 15:30] LABS: ALT 18 U/L (10-49); AST 50 U/L (14-35); Albumin 4.7 g/dL (3.8-4.9); Albumin/Globulin Ratio 1.81 Ratio (1.60-3.17); Alkaline Phosphatase 97 U/L (41-126); BUN/Creat Ratio 26.31 Ratio (12.00-20.00); Blood Urea Nitrogen 42.1 mg/dL (9.0-27.0); Calcium 10.1 mg/dL (8.7-10.3); Carbon Dioxide 23.9 mmol/L (21.6-31.8); Chloride 106 mmol/L (96-109); Globulin 2.6 g/dL (1.6-3.3); Glucose 111 mg/dL (70-110); Potassium 4.5 mmol/L (3.5-5.5); Sodium 141 mmol/L (135-145); Total Bilirubin 1.2 mg/dL (0.3-1.2); Total Protein 7.3 g/dL (6.2-8.2)
== END | disposition home or self-care (01) ==
LOC: LABWHC1 11:18
PROVIDERS: ATTEND Internal Medicine Interventional Cardiology
DX: Z00.00 Encounter for general adult medical examination without abnormal findings (principal); I25.10 Atherosclerotic heart disease of native coronary artery without angina pectoris; I10 Essential (primary) hypertension; Z95.2 Presence of prosthetic heart valve
CPT/HCPCS: 36415; 80053; 83036; 84443; 85025

== ENCOUNTER → 2023-11-14 | Outpatient (CLI) | payer OTHER ==
[2023-11-14 15:42] LABS: BUN/Creat Ratio 18.87 Ratio (12.00-20.00); Blood Urea Nitrogen 28.3 mg/dL (9.0-27.0); Calcium 9.8 mg/dL (8.7-10.3); Carbon Dioxide 23.4 mmol/L (21.6-31.8); Chloride 107 mmol/L (96-109); Glucose 115 mg/dL (70-110); Potassium 5.4 mmol/L (3.5-5.5); Sodium 143 mmol/L (135-145)
== END | disposition home or self-care (01) ==
LOC: LABWHC1 10:26
PROVIDERS: ATTEND Internal Medicine Interventional Cardiology
DX: I10 Essential (primary) hypertension (principal)
CPT/HCPCS: 36415; 80048

== ENCOUNTER 2024-10-24 16:43 | Inpatient (IN) | payer OTHER, MEDICARE ==
--- NOTE | 2024-10-24 17:12 | ED ---
Weakness HPI - General Chief complaint: Extremity Problem,Nontraumatic Stated complaint: bilateral legs swollen Time Seen by Provider: 10/24/24 17:11 Source: patient, RN notes reviewed, old records reviewed Mode of arrival: wheelchair Limitations: no limitations - History of Present Illness Initial comments: This is an 84-year-old male presenting with son for evaluation regarding multiple complaints shortness of breath lower extremity edema weakness not feeling well patient's main complaint is shaking, patient states he cannot control the shaking over his upper extremities. Does have history of alcoholism, patient also was complaining of lower extremity edema and swelling patient's son at bedside states he does not appear to be in seem to have worsening shortness of breath MD Complaint: generalized weakness, lack of energy -: days(s) Location: generalized Severity: moderate Severity scale (1-10): 4 Consistency: constant Improves with: none Worsens with: none Context: history of similar Associated Symptoms: shortness of breath - Related Data Home Medications Medication Instructions Recorded Confirmed Cholecalciferol [Vitamin D3 (25 25 mcg PO DAILY 05/20/22 10/24/24 Mcg = 1000 Iu)] Ferrous Sulfate [Iron] 325 mg PO HS 05/20/22 10/24/24 Ipratropium Inchelium [Atrovent Hfa] 1 puff INHALATION RT-BID 05/20/22 10/24/24 Omeprazole [PriLOSEC] 20 mg PO DAILY 05/20/22 10/24/24 Tamsulosin [Flomax] 0.8 mg PO HS 05/20/22 10/24/24 Calcium Citrate 200mg 200 mg PO BID 04/02/23 10/24/24 Magnesium Oxide 420mg 420 mg PO DAILY 04/02/23 10/24/24 Ascorbic Acid [Vitamin C] 500 mg PO DAILY 10/24/24 10/24/24 Atorvastatin [Lipitor] 40 mg PO DAILY 10/24/24 10/24/24 Diclofenac Sodium Gel [Voltaren 1% 2 gm TOPICAL Q8H PRN 10/24/24 10/24/24 Gel] HYDROcodone/APAP 5-325MG [Jenks 1 tab PO Q8H PRN 10/24/24 10/24/24 5-325] Hydrocortisone Cream 1 applic TOPICAL BID PRN 10/24/24 10/24/24 [Hydrocortisone 2.5% Cream] Metoprolol Succinate (ER) [Toprol 37.5 mg PO DAILY 10/24/24 10/24/24 XL] Multivit-Min/FA/Lycopen/Lutein 1 tab PO DAILY 10/24/24 10/24/24 [Centrum Silver Tablet] allopurinoL [Zyloprim] 100 mg PO DAILY 10/24/24 10/24/24 Previous Rx's Medication Instructions Recorded Apixaban [Eliquis] 2.5 mg PO BID #60 tab 10/31/24 Furosemide [Lasix] 80 mg PO BID@0900,1600 #60 tab 10/31/24 Gabapentin [Neurontin] 200 mg PO HS #0 10/31/24 Midodrine [ProAmatine] 5 mg PO AC-BID #60 tab 10/31/24 Spironolactone [Aldactone] 50 mg PO DAILY #30 tab 10/31/24 Thiamine [Vitamin B-1] 100 mg PO DAILY #30 tab 10/31/24 Allergies Allergy/AdvReac Type Severity Reaction Status Date / Time cyclobenzaprine Allergy Unknown Confused, Verified 10/24/24 19:54 [From Flexeril] had stroke. celecoxib [From Celebrex] Allergy Rash/Hives Verified 10/24/24 19:54 Review of Systems ROS Statement: Those systems with pertinent positive or pertinent negative responses have been documented in the HPI. ROS Other: All systems not noted in ROS Statement are negative. Past Medical History Past Medical History: COPD, CVA/TIA, Hearing Disorder / Deafness, Hyperlipidemia, Hypertension, Myocardial Infarction ([place]), Prostate Disorder Additional Past Medical History / Comment(s): Aortic Valve stenosis,Heart murmur, possible CVA or heart attack-pt not sure, back pain, gout, uses cane, hard of hearing-no hearing aides. Last Myocardial Infarction Date:: 2020? History of Any Multi-Drug Resistant Organisms: None Reported Past Surgical History: Appendectomy, Heart Catheterization, Orthopedic Surgery Additional Past Surgical History / Comment(s): Reverse shoulder, right toe surgery, left hand ring finger surgery, colonoscopy, JUAN PABLO. Past Anesthesia/Blood Transfusion Reactions: No Reported Reaction Additional Past Anesthesia/Blood Transfusion Reaction / Comment(s): No hx blood transfusion. Past Psychological History: No Psychological Hx Reported Smoking Status: Former smoker Past Alcohol Use History: Daily Past Drug Use History: None Reported - Past Family History Mother Family Medical History: Cancer Additional Family Medical History / Comment(s): Breast cancer. Father Family Medical History: Cancer Brother(s) Family Medical History: Cancer, Myocardial Infarction ([place]) General Exam Limitations: no limitations General appearance: alert, in no apparent distress, anxious Head exam: Present: atraumatic, normocephalic, normal inspection Eye exam: Present: normal appearance, PERRL, EOMI. Absent: scleral icterus, co njunctival injection, periorbital swelling ENT exam: Present: normal exam, mucous membranes moist Neck exam: Present: normal inspection. Absent: tenderness, meningismus, lymphadenopathy Respiratory exam: Present: respiratory distress, wheezes, accessory muscle use, decreased breath sounds, prolonged expiratory. Absent: rales, rhonchi, stridor Cardiovascular Exam: Present: regular rate, normal rhythm, normal heart sounds. Absent: systolic murmur, diastolic murmur, rubs, gallop, clicks GI/Abdominal exam: Present: soft, normal bowel sounds. Absent: distended, tenderness, guarding, rebound, rigid Extremities exam: Present: normal inspection, full ROM, normal capillary refill. Absent: tenderness, pedal edema, joint swelling, calf tenderness Back exam: Present: normal inspection Neurological exam: Present: alert, oriented X3, CN II-XII intact Psychiatric exam: Present: normal affect, normal mood Skin exam: Present: warm, dry, intact, normal color. Absent: rash Course Vital Signs 10/24/24 10/24/24 10/24/24 17:05 17:20 18:32 Temperature 97.8 F Pulse Rate 50 L Pulse Rate [ Lunch Wagon Operator ] Respiratory 18 16 Rate Blood Pressure 108/72 O2 Sat by Pulse 98 95 Oximetry Fraction of Inspired Oxygen (FIO2) 10/24/24 10/24/24 10/24/24 18:33 18:35 18:45 Temperature 98.0 F Pulse Rate 61 61 55 L Pulse Rate [ Lunch Wagon Operator ] Respiratory 16 17 17 Rate Blood Pressure 92/59 109/67 94/60 O2 Sat by Pulse 86 L 100 99 Oximetry Fraction of Inspired Oxygen (FIO2) 10/24/24 10/24/24 10/24/24 19:01 19:08 19:37 Temperature Pulse Rate 70 Pulse Rate [ Lunch Wagon Operator ] Respiratory 18 14 Rate Blood Pressure 96/72 O2 Sat by Pulse 100 Oximetry Fraction of 50 Inspired Oxygen (FIO2) 10/24/24 10/24/24 10/24/24 19:42 20:49 21:20 Temperature Pulse Rate 65 51 L 50 L Pulse Rate [ Lunch Wagon Operator ] Respiratory 14 Rate Blood Pressure 104/75 O2 Sat by Pulse 99 Oximetry Fraction of Inspired Oxygen (FIO2) 10/24/24 10/25/24 10/25/24 22:11 00:23 01:18 Temperature Pulse Rate 64 62 Pulse Rate [ Lunch Wagon Operator ] Respiratory 16 16 Rate Blood Pressure 112/85 113/89 O2 Sat by Pulse 100 99 Oximetry Fraction of 40 Inspired Oxygen (FIO2) 10/25/24 10/25/24 10/25/24 03:36 05:51 06:20 Temperature Pulse Rate 54 L 64 Pulse Rate [ Lunch Wagon Operator ] Respiratory 16 18 Rate Blood Pressure 105/72 101/69 O2 Sat by Pulse 100 96 100 Oximetry Fraction of Inspired Oxygen (FIO2) 10/25/24 10/25/24 10/25/24 06:27 06:37 08:06 Temperature Pulse Rate 62 78 68 Pulse Rate [ Lunch Wagon Operator ] Respiratory 18 Rate Blood Pressure 93/67 O2 Sat by Pulse 96 Oximetry Fraction of Inspired Oxygen (FIO2) 10/25/24 10/25/24 10/25/24 08:50 09:00 10:45 Temperature 97.3 F L Pulse Rate 67 65 Pulse Rate [ 66 Lunch Wagon Operator ] Respiratory 18 18 Rate Blood Pressure 119/60 128/91 O2 Sat by Pulse 96 100 Oximetry Fraction of Inspired Oxygen (FIO2) 10/25/24 10/25/24 10/25/24 11:25 11:34 11:37 Temperature Pulse Rate 59 L 64 Pulse Rate [ Lunch Wagon Operator ] Respiratory 18 Rate Blood Pressure 86/50 O2 Sat by Pulse 98 99 Oximetry Fraction of Inspired Oxygen (FIO2) 10/25/24 10/25/24 10/25/24 11:43 12:00 13:00 Temperature Pulse Rate 64 70 71 Pulse Rate [ Lunch Wagon Operator ] Respiratory 18 18 Rate Blood Pressure 93/60 89/59 O2 Sat by Pulse 99 98 Oximetry Fraction of Inspired Oxygen (FIO2) 10/25/24 10/25/24 10/25/24 14:00 16:05 17:00 Temperature Pulse Rate 67 60 60 Pulse Rate [ Lunch Wagon Operator ] Respiratory 18 18 20 Rate Blood Pressure 95/70 88/52 95/71 O2 Sat by Pulse 99 95 Oximetry Fraction of Inspired Oxygen (FIO2) 10/25/24 10/25/24 10/25/24 18:00 19:00 20:09 Temperature Pulse Rate 56 L 54 L 56 L Pulse Rate [ Lunch Wagon Operator ] Respiratory 18 18 Rate Blood Pressure 81/48 73/47 O2 Sat by Pulse 98 97 Oximetry Fraction of Inspired Oxygen (FIO2) 10/25/24 10/25/24 10/25/24 20:18 20:23 21:00 Temperature Pulse Rate 55 L 59 L 55 L Pulse Rate [ Lunch Wagon Operator ] Respiratory 18 18 Rate Blood Pressure 83/55 93/45 O2 Sat by Pulse 97 98 Oximetry Fraction of Inspired Oxygen (FIO2) 10/25/24 10/25/24 10/25/24 21:24 21:45 22:14 Temperature Pulse Rate 60 55 L 55 L Pulse Rate [ Lunch Wagon Operator ] Respiratory 18 18 18 Rate Blood Pressure 115/94 83/60 135/110 O2 Sat by Pulse 99 98 99 Oximetry Fraction of Inspired Oxygen (FIO2) 10/25/24 10/25/24 22:28 22:30 Temperature Pulse Rate Pulse Rate [ Lunch Wagon Operator ] Respiratory Rate Blood Pressure 107/95 O2 Sat by Pulse 100 Oximetry Fraction of Inspired Oxygen (FIO2) - Reevaluation(s) Reevaluation #1: 10/24/24 19:21 Medical records reviewed Reevaluation #2: 10/24/24 19:21 Patient symptoms are mildly worsening and will need to be placed on BiPAP secondary to hypoxia Patient's mental status is mildly worsening Reevaluation #3: 10/24/24 19:21 Patient is informed of results and at bedside informed of results and questions answered Reevaluation #4: Was pt. sent in by a medical professional or institution (, PA, CHILD CARE PROVIDER, urgent care, hospital, or jail...) When possible be specific @ -no Did you speak to anyone other than the patient for history (EMS, parent, family, police, friend...)? What history was obtained from this source @ -no Did you review nursing and triage notes (agree or disagree)? Why? @ -agree Are old charts reviewed (outside hosp., previous admission, EMS record, old EKG, old radiological studies, urgent care reports/EKG's, jail records)? Report findings @ -yes Differential Diagnosis (chest pain, altered mental status, abdominal pain women, abdominal pain men, vaginal bleeding, weakness, fever, dyspnea, syncope, headache, dizziness, GI bleed, back pain, seizure, CVA, palpatations, mental health, musculoskeletal)? @ -prior EKG interpreted by me (3pts min.). @ -yes X-rays interpreted by me (1pt min.). @ -yes positive for CHF CT interpreted by me (1pt min.). @ -no U/S interpreted by me (1pt. min.). @ -no What testing was considered but not performed or refused? (CT, X-rays, U/S, labs)? Why? @ -none What meds were considered but not given or refused? Why? @ -none Did you discuss the management of the patient with other professionals (silvino crabtree i.e., Dr., PA, CHILD CARE PROVIDER, lab, RT, psych nurse, social services director, safety analyst, teacher, electoral officer, shoe parts caser)? Give summary @ -no Was smoking cessation discussed for >3mins.? @ -no Was critical care preformed (if so, how long)? @ -yes31 Were there social determinants of health that impacted care today? How? (Homelessness, low income, unemployed, alcoholism, drug addiction, transportation, low edu. Level, literacy, decrease access to med. care, care home, rehab)? @ -none Was there de-escalation of care discussed even if they declined (Discuss DNR or withdrawal of care, Hospice)? DNR status @ -no What co-morbidities impacted this encounter? (DM, HTN, Smoking, COPD, CAD, Cancer, CVA, ARF, Chemo, Hep., AIDS, mental health diagnosis, sleep apnea, morbid obesity)? @ -none Was patient admitted / discharged? Hospital course, mention meds given and route, prescriptions, significant lab abnormalities, going to OR and other pertinent info. @ - 84 male seen does appear to have underlying COPD with wheezing, significant CHF exacerbation with hypoxia placed on BiPAP with worsening mental status while here in the ER. Admitted Undiagnosed new problem with uncertain prognosis? @ -no Drug Therapy requiring intensive monitoring for toxicity (Heparin, Nitro, Insulin, Cardizem)? @ -no Were any procedures done? @ -no Diagnosis/symptom? @ -COPD, CHF, Hypoxia Acute, or Chronic, or Acute on Chronic? @ -Acute Uncomplicated (without systemic symptoms) or Complicated (systemic symptoms)? @ -Complicated Side effects of treatment? @ -no Exacerbation, Progression, or Severe Exacerbation? @ -exacerbation Poses a threat to life or bodily function? How? (Chest pain, [place], [place], pneumonia, PE, COPD, DKA, ARF, appy, cholecystitis, CVA, Diverticulitis, Homicidal, Suicidal, threat to staff... and all critical care pts) @ -yes w respiratory failure Reevaluation #5: Differential Dyspnea: Coronary syndrome, arrhythmia, tamponade, asthma, COPD, pulmonary embolism, pneumonia, pneumothorax, pulmonary effusion, anaphylaxis, diabetic ketoacidosis, flailed chest, pulmonary contusion, diaphragmatic rupture, anemia, neuromuscular, this is not meant to be an all-inclusive list. - Consultations Consultation #1: Spoke with [facility] who agrees to admit this patient EKG Findings - EKG Comments: EKG Findings:: EKG is A-fib 72 QRS 101 QTc 416 - EKG Results: EKG: interpreted by CHRISTINA Medical Decision Making - Medical Decision Making 84 male seen does appear to have underlying COPD with wheezing, significant CHF exacerbation with hypoxia placed on BiPAP with worsening mental status while here in the ER. - Lab Data Result diagrams: 10/28/24 04:07 10/31/24 11:05 Lab Results 10/24/24 10/24/24 10/24/24 Range/Units 17:35 17:35 17:35 WBC (4.50-10.00) 10*3/uL RBC (4.40-5.60) 10*6/uL Hgb (13.0-17.0) g/dL Hct (39.6-50.0) % MCV (80.0-97.0) fL MCH (27.0-32.0) pg MCHC (32.0-37.0) g/dL Plt Count (140-440) 10*3/uL MPV (9.5-12.2) fL Immature Gran % (Auto) % Neutrophils % % Lymphocytes % % Monocytes % % Eosinophils % % Basophils % % Immature Gran # (0.00-0.04) 10*3/uL Neutrophils # (1.80-7.70) 10*3/uL Lymphocytes # (0.90-5.00) 10*3/uL Monocytes # (0.20-1.00) 10*3/uL Eosinophils # (0.04-0.35) 10*3/uL Basophils # (0.00-0.10) 10*3/uL Manual Slide Review Ovalocytes Fragmented RBCs PT 15.0 H (10.0-12.5) sec INR 1.4 H (<1.2) APTT 47.4 H (22.0-30.0) sec D-Dimer 2.19 H (<0.60) mg/L FEU VBG pH (7.31-7.41) VBG pCO2 (37-51) mmHg VBG HCO3 (24-28) mmol/L Sodium 139 (137-145) mmol/L Potassium 5.3 H (3.5-5.1) mmol/L Chloride 106 (98-107) mmol/L Carbon Dioxide 21 L (22-30) mmol/L Anion Gap 12 mmol/L BUN 88 H (9-20) mg/dL Creatinine 2.21 H (0.66-1.25) mg/dL Est GFR (CKD-EPI)AfAm 31 (>60 ml/min/1.73 sqM) Est GFR (CKD-EPI)NonAf 27 (>60 ml/min/1.73 sqM) Glucose 107 H (74-99) mg/dL Plasma Lactic Acid Sami 1.6 (0.7-2.0) mmol/L Calcium 9.8 (8.4-10.2) mg/dL Phosphorus 4.5 (2.5-4.5) mg/dL Magnesium 2.9 H (1.6-2.3) mg/dL Total Bilirubin 1.2 (0.2-1.3) mg/dL AST 55 (17-59) U/L ALT 21 (4-49) U/L Alkaline Phosphatase 166 H (38-126) U/L Ammonia 29 (<30) umol/L Troponin I (0.000-0.034) ng/mL NT-Pro-B Natriuret Pep 2420 pg/mL Total Protein 6.9 (6.3-8.2) g/dL Albumin 4.1 (3.5-5.0) g/dL Serum Alcohol <10 mg/dL 10/24/24 10/24/24 10/24/24 Range/Units 17:35 18:42 18:42 WBC 2.76 L (4.50-10.00) 10*3/uL RBC 2.72 L (4.40-5.60) 10*6/uL Hgb 9.2 L (13.0-17.0) g/dL Hct 28.4 L (39.6-50.0) % MCV 104.4 H (80.0-97.0) fL MCH 33.8 H (27.0-32.0) pg MCHC 32.4 (32.0-37.0) g/dL Plt Count 58 L (140-440) 10*3/uL MPV 13.2 H (9.5-12.2) fL Immature Gran % (Auto) 0.4 % Neutrophils % 80.1 % Lymphocytes % 6.5 % Monocytes % 11.6 % Eosinophils % 0.7 % Basophils % 0.7 % Immature Gran # 0.01 (0.00-0.04) 10*3/uL Neutrophils # 2.21 (1.80-7.70) 10*3/uL Lymphocytes # 0.18 L (0.90-5.00) 10*3/uL Monocytes # 0.32 (0.20-1.00) 10*3/uL Eosinophils # 0.02 L (0.04-0.35) 10*3/uL Basophils # 0.02 (0.00-0.10) 10*3/uL Manual Slide Review Performed Ovalocytes Present Fragmented RBCs PT (10.0-12.5) sec INR (<1.2) APTT (22.0-30.0) sec D-Dimer (<0.60) mg/L FEU VBG pH 7.26 L (7.31-7.41) VBG pCO2 49 (37-51) mmHg VBG HCO3 22 L (24-28) mmol/L Sodium (137-145) mmol/L Potassium (3.5-5.1) mmol/L Chloride (98-107) mmol/L Carbon Dioxide (22-30) mmol/L Anion Gap mmol/L BUN (9-20) mg/dL Creatinine (0.66-1.25) mg/dL Est GFR (CKD-EPI)AfAm (>60 ml/min/1.73 sqM) Est GFR (CKD-EPI)NonAf (>60 ml/min/1.73 sqM) Glucose (74-99) mg/dL Plasma Lactic Acid Sami (0.7-2.0) mmol/L Calcium (8.4-10.2) mg/dL Phosphorus (2.5-4.5) mg/dL Magnesium (1.6-2.3) mg/dL Total Bilirubin (0.2-1.3) mg/dL AST (17-59) U/L ALT (4-49) U/L Alkaline Phosphatase (38-126) U/L Ammonia (<30) umol/L Troponin I 0.166 H* (0.000-0.034) ng/mL NT-Pro-B Natriuret Pep pg/mL Total Protein (6.3-8.2) g/dL Albumin (3.5-5.0) g/dL Serum Alcohol mg/dL - EKG Data -: EKG Interpreted by Me - Radiology Data Radiology results: report reviewed (Chest x-ray is positive for CHF), image reviewed Critical Care Time Critical Care Time: Yes Total Critical Care Time: 31 Disposition Clinical Impression: Bilateral leg edema, Altered mental status, CHF (congestive heart failure), Hypoxia, BRUNO (acute kidney injury), Tremor, Elevated d-dimer, NSTEMI (non-ST elevated myocardial infarction) Disposition: ADMITTED IP TO THIS HOSP Condition: Serious Is patient prescribed a controlled substance at d/c from ED?: No Time of Disposition: 19:00
[2024-10-24] MEDS: SODIUM CHLORIDE 0.9% 1,000 ML IV SCH (17:42)
[2024-10-24] MEDS: LORazepam 2 MG/ML INJ IV STA (17:43)
[2024-10-24] MEDS: ONDANSETRON 4 MG/2 ML VIAL IVP STA (17:45)
[2024-10-24] MEDS: MORPHINE SULFATE 4 MG/ML SYRINGE IV STA (17:47)
--- NOTE | 2024-10-24 18:26 | XR ---
EXAMINATION TYPE: XR chest 2V DATE OF EXAM: 10/24/2024 5:59 PM COMPARISON: Chest radiographs from 11/21/2022 CLINICAL INDICATION: Male, 84 years old with history of Weakness; [facility] TECHNIQUE: XR chest 2V Frontal and lateral views of the chest. FINDINGS: Lungs/Pleura: No evidence of focal consolidation or pneumothorax. Blunting of the costophrenic angles is present. Pulmonary vascularity: Unremarkable. Heart/mediastinum: Cardiomediastinal silhouette is enlarged. Musculoskeletal: No acute osseous pathology. Right shoulder arthroplasty appears intact. Other findings: None IMPRESSION: Cardiomegaly, pulmonary vascular congestion and bilateral pleural effusions. Correlate with BNP for c ongestive heart failure. [facility], , 10/24/2024 6:24 PM
[2024-10-24] MEDS: NALOXONE 0.4 MG/ML 1 ML VIAL IV STA (18:32)
[2024-10-24 18:35] LABS: ALT 21 U/L (4-49); AST 55 U/L (17-59); African American GFR (CKD) 31 (>60 ml/min/1.73 sqM); Albumin 4.1 g/dL (3.5-5.0); Alcohol <10 mg/dL; Alkaline Phosphatase 166 U/L (38-126); Anion Gap 12 mmol/L; Blood Urea Nitrogen 88 mg/dL (9-20); Calcium 9.8 mg/dL (8.4-10.2); Carbon Dioxide 21 mmol/L (22-30); Chloride 106 mmol/L (98-107); Glucose 107 mg/dL (74-99); INR 1.4 (<1.2); Lactic Acid, Venous 1.6 mmol/L (0.7-2.0); Magnesium 2.9 mg/dL (1.6-2.3); Non-African American GFR(CKD) 27 (>60 ml/min/1.73 sqM); Partial Thromboplastin Time 47.4 sec (22.0-30.0); Phosphorus 4.5 mg/dL (2.5-4.5); Potassium 5.3 mmol/L (3.5-5.1); Sodium 139 mmol/L (137-145); Total Bilirubin 1.2 mg/dL (0.2-1.3); Total Protein 6.9 g/dL (6.3-8.2)
[2024-10-24 18:40] LABS: NT-Pro-B-Type Natriuretic Pept 2420 pg/mL
[2024-10-24] MEDS ORDERED: HEPARIN SODIUM 1,000 UN/ML (10ML VL) IV PRN (18:42)
[2024-10-24 18:58] LABS: VBG PH 7.26 (7.31-7.41)
[2024-10-24] MEDS: HEPARIN SODIUM 1,000 UN/ML (10ML VL) IV ONE (19:05)
[2024-10-24] MEDS: HEPARIN SOD,PORK IN 0.45% NACL 25,000 UNIT in 0.45% NACL 1 250ML.BAG IV SCH (19:08)
[2024-10-24] MEDS: DEXAMETHASONE SOD PHOSPHATE 10 MG/ML 1 ML VIAL IVP STA (19:10)
[2024-10-24 19:17] LABS: Basophils # (A) 0.02 10*3/uL (0.00-0.10); Basophils % (A) 0.7 %; Eosinophils # (A) 0.02 10*3/uL (0.04-0.35); Eosinophils % (A) 0.7 %; HCT 28.4 % (39.6-50.0); HGB 9.2 g/dL (13.0-17.0); Lymphocytes # (A) 0.18 10*3/uL (0.90-5.00); Lymphocytes % (A) 6.5 %; MCH 33.8 pg (27.0-32.0); MCHC 32.4 g/dL (32.0-37.0); MCV 104.4 fL (80.0-97.0); Mean Platelet Volume 13.2 fL (9.5-12.2); Monocytes # (A) 0.32 10*3/uL (0.20-1.00); Monocytes % (A) 11.6 %; Neutrophils # (A) 2.21 10*3/uL (1.80-7.70); Neutrophils % (A) 80.1 %; RBC 2.72 10*6/uL (4.40-5.60); RDW 18.8 % (11.5-14.5); WBC 2.76 10*3/uL (4.50-10.00)
[2024-10-24 20:15] LABS: Ovalocytes Present; Platelet Count 58 10*3/uL (140-440)
[2024-10-24] MEDS: IPRATROPIUM-ALBUTEROL 3 ML NEB INHALATION STA ×2 (20:47→20:49)
[2024-10-24] MEDS: FUROSEMIDE 10 MG/ML 10 ML VIAL IV SCH (21:43)
[2024-10-24] MEDS: NITROGLYCERIN OINT 1 INCH/GM PACKET TOPICAL SCH (21:56)
[2024-10-25] MEDS: SODIUM CHLORIDE 0.9% 1,000 ML IV SCH (00:35)
[2024-10-25] MEDS: IPRATROPIUM-ALBUTEROL 3 ML NEB INHALATION PRN (06:27)
[2024-10-25 08:24] LABS: Basophils # (A) 0.01 10*3/uL (0.00-0.10); Basophils % (A) 0.5 %; HCT 29.8 % (39.6-50.0); HGB 9.2 g/dL (13.0-17.0); Lymphocytes # (A) 0.13 10*3/uL (0.90-5.00); Lymphocytes % (A) 6.8 %; MCH 33.3 pg (27.0-32.0); MCHC 30.9 g/dL (32.0-37.0); Mean Platelet Volume 12.5 fL (9.5-12.2); Monocytes # (A) 0.06 10*3/uL (0.20-1.00); Monocytes % (A) 3.2 %; Neutrophils % (A) 89.5 %; Platelet Count 63 10*3/uL (140-440); RBC 2.76 10*6/uL (4.40-5.60)
[2024-10-25 08:45] LABS: African American GFR (CKD) 31 (>60 ml/min/1.73 sqM); Anion Gap 8 mmol/L; Blood Urea Nitrogen 84 mg/dL (9-20); Calcium 9.2 mg/dL (8.4-10.2); Carbon Dioxide 23 mmol/L (22-30); Chloride 108 mmol/L (98-107); Glucose 139 mg/dL (74-99); Non-African American GFR(CKD) 27 (>60 ml/min/1.73 sqM); Sodium 139 mmol/L (137-145)
[2024-10-25] MEDS: APIXABAN 2.5 MG TABLET PO SCH (08:59)
[2024-10-25] MEDS ORDERED: DICLOFENAC SODIUM GEL 100 GM TUBE TOPICAL PRN (09:10)
--- NOTE | 2024-10-25 10:22 | P.CRDCN ---
History of Present Illness History of present illness: HISTORY OF PRESENT ILLNESS: This is a 84-year-old male with a past medical history significant for nonobstructive CAD, severe aortic stenosis with previous TAVR, hypertension, hyperlipidemia, and atrial fibrillation. Patient follows in the office with Dr. Javier. We have been asked to see the patient in consultation for CHF. Patient examined at the bedside. Patient presented to the ER with a chief complaint shortness of breath. Patient's family is at the bedside and states that patient has been shaking a lot at home. They report he has been falling frequently and is very weak. They state for the past 2 to 3 days he has been having hallucinations at home where he has been seeing his in the house. DIAGNOSTICS: - EKG reveals atrial fibrillation with controlled ventricular rate. - Chest xray cardiomegaly, pulmonary vascular congestion and bilateral pleural effusions. - Laboratory data: WBC 2.76. Hemoglobin 9.2. Platelet count 58. D-dimer 2.19. Sodium 139. Potassium 6.0. BUN 84. Creatinine 2.23. Troponin 0.166. 0.157. 0.130. proBNP 2420. - Current home cardiac medications include Eliquis 5 mg twice a day, Lipitor 40 mg daily, losartan 100 mg daily, metoprolol succinate 37.5 mg daily, hydralazine 50 mg 3 times daily, hydrochlorothiazide 25 mg daily. - Most recent echocardiogram obtained in October 2022 revealed ejection fraction 55 to 60%, post TAVR with normally functioning bioprosthetic valve with peak gradient 16 and mean gradient 11. Trace to mild aortic regurgitation. Mild TR. - Cardiac catheterization history: [address] Javier revealing codominant/right dominant system. 60% proximal RCA with heavily calcification and good size posterior descending artery branch that comes off from RCA. Left main has no significant disease and is very small. LAD has 30 to 40% narrowing. PLV branch it comes off of nondominant circumflex has 50% narrowing. No other significant disease in the rest of the circumflex. REVIEW OF SYSTEMS: At the time of my exam: CONSTITUTIONAL: Denies fever or chills. HEENT: Denies blurred vision, vision changes, or eye pain. Denies hemoptysis CARDIOVASCULAR: Denies chest pain. Denies orthopnea. Denies PND. Denies palpitations RESPIRATORY: Denies shortness of breath. GASTROINTESTINAL: Denies abdominal pain. Denies nausea or vomiting. HEMATOLOGIC: Denies bleeding disorders. GENITOURINARY: Denies any blood in urine. SKIN: Denies pruitis. Denies rash. PHYSICAL EXAM: VITAL SIGNS: Reviewed. GENERAL: Well-developed in no acute distress. HEENT: Head is normocephalic. Pupils are equal, round. Sclerae anicteric. Mucous membranes of the mouth are moist. Neck supple. No JVD or thyromegaly LUNGS: Respirations even and unlabored. Lungs essentially clear to auscultation bilaterally. HEART: Irregular rate and rhythm. S1 and S2 heard. ABDOMEN: Soft. Nondistended. Nontender. EXTREMITIES: Normal range of motion. No clubbing or cyanosis. Peripheral pulses intact. No lower extremity edema NEUROLOGIC: Lethargic ASSESSMENT: Shortness of breath Generalized weakness with frequent falls, per family Hallucinations, per family Acute hypoxic respiratory failure Pancytopenia Acute kidney injury Elevated troponins, flat, likely secondary to poor renal clearance, no evidence of myocardial injury or ischemia History of severe aortic stenosis with previous TAVR, 2022 Nonobstructive coronary artery disease Persistent atrial fibrillation with controlled ventricular rate Hypertension Hyperlipidemia PLAN: Obtain 2D echo to assess cardiac structure and function An acute coronary event has been ruled out Discontinue IV heparin Resume Eliquis. Dose adjusted per pharmacy due to age and kidney function Obtain blood cultures Consult nephrology for acute kidney injury Consult hematology for evaluation of thrombocytopenia and recommendations for anticoagulation No indication for stress testing or cardiac catheterization at this time Further recommendations pending patient course Nurse practitioner note has been reviewed by physician. Signing provider agrees with the documented findings, assessment, and plan of care documented by [facility]IST as a scribe. Past Medical History Past Medical History: COPD, CVA/TIA, Hearing Disorder / Deafness, Hyperlipidemia, Hypertension, Myocardial Infarction ([place]), Prostate Disorder Additional Past Medical History / Comment(s): Aortic Valve stenosis,Heart murmur, possible CVA or heart attack-pt not sure, back pain, gout, uses cane, hard of hearing-no hearing aides. Last Myocardial Infarction Date:: 2020? History of Any Multi-Drug Resistant Organisms: None Reported Past Surgical History: Appendectomy, Heart Catheterization, Orthopedic Surgery Additional Past Surgical History / Comment(s): Reverse shoulder, right toe surgery, left hand ring finger surgery, colonoscopy, JUAN PABLO. Past Anesthesia/Blood Transfusion Reactions: No Reported Reaction Additional Past Anesthesia/Blood Transfusion Reaction / Comment(s): No hx blood transfusion. Past Psychological History: No Psychological Hx Reported Smoking Status: Former smoker Past Alcohol Use History: Daily Past Drug Use History: None Reported - Past Family History Mother Family Medical History: Cancer Additional Family Medical History / Comment(s): Breast cancer. Father Family Medical History: Cancer Brother(s) Family Medical History: Cancer, Myocardial Infarction ([place]) Medications and Allergies Home Medications Medication Instructions Recorded Confirmed Type Cholecalciferol [Vitamin D3 (25 25 mcg PO DAILY 05/20/22 10/24/24 History Mcg = 1000 Iu)] Ferrous Sulfate [Iron] 325 mg PO HS 05/20/22 10/24/24 History Gabapentin [Neurontin] 200 mg PO BID 05/20/22 10/24/24 History Ipratropium [place] [Atrovent Hfa] 1 puff INHALATION RT-BID 05/20/22 10/24/24 History Loratadine 10 mg PO DAILY 05/20/22 10/24/24 History Omeprazole [PriLOSEC] 20 mg PO DAILY 05/20/22 10/24/24 History Tamsulosin [Flomax] 0.8 mg PO HS 05/20/22 10/24/24 History hydroCHLOROthiazide 25 mg PO DAILY 05/20/22 10/24/24 History Calcium Citrate 200mg 200 mg PO BID 04/02/23 10/24/24 History Magnesium Oxide 420mg 420 mg PO DAILY 04/02/23 10/24/24 History Apixaban [Eliquis] 5 mg PO BID 10/24/24 10/24/24 History Ascorbic Acid [Vitamin C] 500 mg PO DAILY 10/24/24 10/24/24 History Atorvastatin [Lipitor] 40 mg PO DAILY 10/24/24 10/24/24 History Diclofenac Sodium Gel [Voltaren 1% 2 gm TOPICAL Q8H PRN 10/24/24 10/24/24 History Gel] HYDROcodone/APAP 5-325MG [[place] 1 tab PO Q8H PRN 10/24/24 10/24/24 History 5-325] Hydrocortisone Cream 1 applic TOPICAL BID PRN 10/24/24 10/24/24 History [Hydrocortisone 2.5% Cream] Losartan Potassium [Cozaar] 100 mg PO DAILY 10/24/24 10/24/24 History Metoprolol Succinate (ER) [Toprol 37.5 mg PO DAILY 10/24/24 10/24/24 History Xl] Multivit-Min/FA/Lycopen/Lutein 1 tab PO DAILY 10/24/24 10/24/24 History [Centrum Silver Tablet] allopurinoL [Zyloprim] 100 mg PO DAILY 10/24/24 10/24/24 History hydrALAZINE HCL [Apresoline] 50 mg PO TID 10/24/24 10/24/24 History Allergies Allergy/AdvReac Type Severity Reaction Status Date / Time cyclobenzaprine Allergy Unknown Confused, Verified 10/24/24 19:54 [From Flexeril] had stroke. celecoxib [From Celebrex] Allergy Rash/Hives Verified 10/24/24 19:54 Physical Exam Vitals: Vital Signs Temp Pulse Pulse Resp BP Pulse Ox FiO2 10/25/24 09:00 66 10/25/24 08:50 67 18 119/60 96 10/25/24 08:06 68 18 93/67 96 10/25/24 06:37 78 10/25/24 06:27 62 10/25/24 06:20 64 18 101/69 100 10/25/24 05:51 96 10/25/24 03:36 54 L 16 105/72 100 10/25/24 01:18 62 16 113/89 99 10/25/24 00:23 40 10/24/24 22:11 64 16 112/85 100 10/24/24 21:20 50 L 10/24/24 20:49 51 L 10/24/24 19:42 65 14 104/75 99 10/24/24 19:37 14 10/24/24 19:08 50 10/24/24 19:01 70 18 96/72 100 10/24/24 18:45 55 L 17 94/60 99 10/24/24 18:35 61 17 109/67 100 10/24/24 18:33 98.0 F 61 16 92/59 86 L 10/24/24 18:32 16 10/24/24 17:20 95 10/24/24 17:05 97.8 F 50 L 18 108/72 98 Intake and Output 10/24/24 10/25/24 10/25/24 22:59 06:59 14:59 Intake Total 98.265 Balance 98.265 Intake: Intake, IV Titration 98.265 Amount Heparin Sod,Pork in 0.45% 98.265 NaCl 25,000 unit In 0.45 % NaCl 1 250ml.bag @ 18 UNITS/KG/HR 14.207 mls/hr IV .[id number] [facility] Rx#: [id number] Other: Weight 78.925 kg Results 10/24/24 18:42 10/25/24 08:12 Cardiac Enzymes 10/24/24 10/24/24 10/24/24 Range/Units 17:35 17:35 21:06 AST 55 (17-59) U/L Troponin I 0.166 H* 0.157 H* (0.000-0.034) ng/mL 10/25/24 Range/Units 01:11 AST (17-59) U/L Troponin I 0.130 H* (0.000-0.034) ng/mL Coagulation 10/24/24 10/25/24 10/25/24 Range/Units 17:35 01:11 08:07 PT 15.0 H (10.0-12.5) sec APTT 47.4 H >200.0 H* >200.0 H* (22.0-30.0) sec CBC 10/24/24 Range/Units 18:42 WBC 2.76 L (4.50-10.00) 10*3/uL RBC 2.72 L (4.40-5.60) 10*6/uL Hgb 9.2 L (13.0-17.0) g/dL Hct 28.4 L (39.6-50.0) % Plt Count 58 L (140-440) 10*3/uL Comprehensive Metabolic Panel 10/24/24 10/25/24 Range/Units 17:35 08:12 Sodium 139 139 (137-145) mmol/L Potassium 5.3 H 6.0 H (3.5-5.1) mmol/L Chloride 106 108 H (98-107) mmol/L Carbon Dioxide 21 L 23 (22-30) mmol/L BUN 88 H 84 H (9-20) mg/dL Creatinine 2.21 H 2.23 H (0.66-1.25) mg/dL Glucose 107 H 139 H (74-99) mg/dL Calcium 9.8 9.2 (8.4-10.2) mg/dL AST 55 (17-59) U/L ALT 21 (4-49) U/L Alkaline Phosphatase 166 H (38-126) U/L Total Protein 6.9 (6.3-8.2) g/dL Albumin 4.1 (3.5-5.0) g/dL Current Medications Generic Name Dose Route Start Last Admin Trade Name Freq PRN Reason Stop Dose Admin Hydrocodone Bitart/Acetaminophen 1 each 10/25/24 09:11 Hydrocodone/Apap 5-325mg 1 Each Tab PO Q8H PRN Pain Albuterol/Ipratropium 3 ml 10/24/24 19:23 10/25/24 06:27 Ipratropium-Albuterol 3 Ml Neb INHALATION 3 ml RT-QID PRN Administration Shortness Of Breath Or Wheezing Allopurinol 100 mg 10/25/24 09:15 Allopurinol 100 Mg Tab PO DAILY CAYDEN Apixaban 2.5 mg 10/25/24 09:00 10/25/24 08:59 Apixaban 2.5 Mg Tablet PO 2.5 mg BID CAYDEN Administration Protocol Atorvastatin Calcium 40 mg 10/25/24 09:15 Atorvastatin 40 Mg Tab PO DAILY [facility] Calcium Carbonate/Glycine 500 mg 10/25/24 21:00 Calcium Carbonate 500 Mg Chewable PO BID CAYDEN Diclofenac Sodium 2 gm 10/25/24 09:10 Diclofenac Sodium Gel 100 Gm Tube TOPICAL Q8H PRN Pain Protocol Ferrous Sulfate 325 mg 10/25/24 21:00 Ferrous Sulfate 325 Mg Tab PO HS CAYDEN Furosemide 60 mg 10/24/24 20:00 10/25/24 08:59 Furosemide 10 Mg/Ml 10 Ml Vial IV 60 mg Q12H [facility] Administration Gabapentin 200 mg 10/25/24 09:15 Gabapentin 100 Mg Cap PO BID CAYDEN Sodium Chloride 1,000 mls @ 20 mls/hr 10/24/24 17:15 10/24/24 17:42 Saline 0.9% IV 20 mls/hr .Q24H [facility] Administration Ipratropium [place] 0.5 mg 10/25/24 09:11 Ipratropium 0.5 Mg/2.5 Ml Nebu INHALATION RT-BID [facility] Metoprolol Succinate 37.5 mg 10/25/24 09:15 Metoprolol Succinate (Er) 25 Mg Tab.Er.24h PO DAILY [facility] Multivitamins 1 each 10/25/24 09:15 Multivitamins, The[place] 1 Each Tab PO DAILY [facility] Nitroglycerin 1 inch 10/24/24 20:00 10/25/24 08:59 Nitroglycerin Oint 1 Inch/Gm Packet TOPICAL 1 inch Q6H [facility] Administration Pantoprazole Sodium 40 mg 10/25/24 09:15 Pantoprazole 40 Mg Tablet PO DAILY [facility] Tamsulosin HCl 0.8 mg 10/25/24 21:00 Tamsulosin 0.4 Mg Cap.Er.24h PO HS [facility] Intake and Output 10/24/24 10/25/24 10/25/24 22:59 06:59 14:59 Intake Total 98.265 Balance 98.265 Intake: Intake, IV Titration 98.265 Amount Heparin Sod,Pork in 0.45% 98.265 NaCl 25,000 unit In 0.45 % NaCl 1 250ml.bag @ 18 UNITS/KG/HR 14.207 mls/hr IV .[id number] [facility] Rx#: [id number] Other: Weight 78.925 kg 10/24/24 18:42 10/25/24 08:12
[2024-10-25] MEDS: PANTOPRAZOLE 40 MG TABLET PO SCH (10:47)
[2024-10-25] MEDS: MULTIVITAMINS, THERA 1 EACH TAB PO SCH (10:47)
[2024-10-25] MEDS: GABAPENTIN 100 MG CAP PO SCH (10:47)
[2024-10-25] MEDS: ATORVASTATIN 40 MG TAB PO SCH (10:47)
[2024-10-25] MEDS: SODIUM POLYSTYRENE SULFONATE 15 GM/60 ML BOTTLE PO STA (10:48)
[2024-10-25] MEDS: allopurinoL 100 MG TAB PO SCH (10:48)
[2024-10-25] MEDS: METOPROLOL SUCCINATE (ER) 25 MG TAB.ER.24H PO SCH (11:25)
[2024-10-25] MEDS: IPRATROPIUM 0.5 MG/2.5 ML NEBU INHALATION SCH (11:34)
[2024-10-25] MEDS: HYDROcodone/APAP 5-325MG 1 EACH TAB PO PRN (14:10)
--- NOTE | 2024-10-25 19:59 | P.HPIM ---
History of Present Illness H&P Date: 10/25/24 Chief Complaint: Multiple complaints This is a 84-year-old patient who follows with Dr. Jacobs. Chronic medical conditions include COPD, decreased hearing, hyperlipidemia hypertension previous [place] enlarged prostate gout uses a cane/walker. Drinks 2-3 mixed drinks a day. History is obtained by patient's son Romario at the bedside and his . Patient lives with his other son Sean. Of recent patient's been having falls. Hallucinations seeing things. Unsteady. Shaking. Appetite is okay. Patient is hard of hearing but able to answer simple questions. They cannot tell why he is here. No fever or chills reported. Patient has a tickle in the throat and intermittently keeps coughing. Some shortness of breath Review of systems: GEN.: Restless EYES: None HEENT: [Decreased hearing NECK: None RESPIRATORY: Intermittent coughing e CARDIOVASCULAR: Shortness of breath, edema GASTROINTESTINAL: None GENITOURINARY: None MUSCULOSKELETAL: None LYMPHATICS: None HEMATOLOGICAL: None PSYCHIATRY:. Forgetful, hallucinating NEUROLOGICAL: Some jerking of the upper extremity Social history: Patient has least 2-3 mixed drinks daily. Stop smoking at the age of 42. Half a pack a day. Does use a cane/walker. Lives with his son Saen. Physical examination: VITAL SIGNS: 98, 61, 16, 92 x 59, 86% room air upon presentation GENERAL: BMI 29, laying in bed, a bit restless intermittent coughing. EYES: Pupils equal. Conjunctiva ramya l. HEENT: External appearance of nose and ears normal, oral cavity grossly normal. NECK: JVD unable to assess; masses not palpable. HEART: First and second heart sounds are normal; edema present. LUNGS: Respiratory rate increased, decreased breath sounds. ABDOMEN: Soft, nontender, liver spleen not palpable, no masses palpable. PSYCH: Slightly decreased sensorium. Patient able to tell me his name the year he knows that he is [facility] and he knows he lives with his son 1 l. Patient reported per family to have hallucinations MUSCULOSKELETAL:No Clubbing/cyanosis;muscles-grossly intact. OA and many joint NEUROLOGICAL: Cranial nerves grossly intact; no facial asymmetry, some jerking of the upper extremities reported.. LYMPHATICS: No lymph nodes palpable in the axilla and neck INVESTIGATIONS, reviewed in the clinical context: October 25: White count 1.9 hemoglobin 9.2 platelets 63 sodium 139 potassium 6 BUN 84 creatinine 2.23 October 24: White count 2.7 hemoglobin 9.2 platelets 58. Sodium 139 potassium 5.3 BUN 88 creatinine 2.21 Troponin I, 0.166, 0.157, 0.130 Serum alcohol less than 10 EKG tracing personally reviewed by me-atrial fibrillation. Chest x-ray film personally reviewed by me-cardiomegaly, with pulm edema Prior labs: November 14, 2023: Creatinine 1.5 2D echo 2022: EF 50 to 60%. Moderate pulmonary hypertension. Normal functioning bioprosthetic valve. Assessment plan: - Acute congestive heart failure exacerbation recent EF not known Patient currently on IV Lasix twice daily. Will switch to Lasix drip 10 mg an hour. Strict I's and O's. Fluid restriction 2000 cc a day. 2D echo. Cardiology consulted - Bioprosthetic valve, aortic - Acute delirium, metabolic encephalopathy likely from worsening kidney function. And hypoxia Supplemental oxygen. - Acute hypoxia from CHF Supplemental oxygen - Acute kidney injury likely ATN from cardiorenal. Syndrome. Renal ultrasound. UA. Follow renal function - Chronic kidney disease, with creatinine being 1.5 in October 2023. Stage III likely nephrosclerosis - Troponinemia. In the setting of worsening renal failure. No chest pain reported. Doubt ACS Cardiology following - Hyperkalemia. Kayexalate. Renal diet. - Tremors twitching reported by family. Likely from patient being on gabapentin in the setting of worsening renal function Hold off Neurontin today. Resume tomorrow 200 mg at night. - Pancytopenia, could be from underlying liver disease. Given that patient been drinking alcohol for some time. Follow CBC - New diagnosis of atrial fibrillation. Rate controlled. 2D echo. Patient on IV heparin per cardiology. Then switched over to Eliquis. - Increased alcohol intake, chronic Check LFTs. Liver ultrasound - Chronic hard of hearing, does not have hearing aids - Chronic gout Allopurinol - GERD PPI - BPH Flomax - Primary osteoarthritis multiple joints Diclofenac sodium topical - Full code - Medical power of valet parker, andreia Wright was discussed with the patient's son and [id number] at bedside. Past Medical History Past Medical History: COPD, CVA/TIA, Hearing Disorder / Deafness, Hyperlipidemia, Hypertension, Myocardial Infarction ([place]), Prostate Disorder Additional Past Medical History / Comment(s): Aortic Valve stenosis,Heart murmur, possible CVA or heart attack-pt not sure, back pain, gout, uses cane, h brian of hearing-no hearing aides. Last Myocardial Infarction Date:: 2020? History of Any Multi-Drug Resistant Organisms: None Reported Past Surgical History: Appendectomy, Heart Catheterization, Orthopedic Surgery Additional Past Surgical History / Comment(s): Reverse shoulder, right toe surgery, left hand ring finger surgery, colonoscopy, JUAN PABLO. Past Anesthesia/Blood Transfusion Reactions: No Reported Reaction Additional Past Anesthesia/Blood Transfusion Reaction / Comment(s): No hx blood transfusion. Past Psychological History: No Psychological Hx Reported Smoking Status: Former smoker Past Alcohol Use History: Daily Past Drug Use History: None Reported - Past Family History Mother Family Medical History: Cancer Additional Family Medical History / Comment(s): Breast cancer. Father Family Medical History: Cancer Brother(s) Family Medical History: Cancer, Myocardial Infarction ([place]) Medications and Allergies Home Medications Medication Instructions Recorded Confirmed Type Cholecalciferol [Vitamin D3 (25 25 mcg PO DAILY 05/20/22 10/24/24 History Mcg = 1000 Iu)] Ferrous Sulfate [Iron] 325 mg PO HS 05/20/22 10/24/24 History Gabapentin [Neurontin] 200 mg PO BID 05/20/22 10/24/24 History Ipratropium [place] [Atrovent Hfa] 1 puff INHALATION RT-BID 05/20/22 10/24/24 History Loratadine 10 mg PO DAILY 05/20/22 10/24/24 History Omeprazole [PriLOSEC] 20 mg PO DAILY 05/20/22 10/24/24 History Tamsulosin [Flomax] 0.8 mg PO HS 05/20/22 10/24/24 History hydroCHLOROthiazide 25 mg PO DAILY 05/20/22 10/24/24 History Calcium Citrate 200mg 200 mg PO BID 04/02/23 10/24/24 History Magnesium Oxide 420mg 420 mg PO DAILY 04/02/23 10/24/24 History Apixaban [Eliquis] 5 mg PO BID 10/24/24 10/24/24 History Ascorbic Acid [Vitamin C] 500 mg PO DAILY 10/24/24 10/24/24 History Atorvastatin [Lipitor] 40 mg PO DAILY 10/24/24 10/24/24 History Diclofenac Sodium Gel [Voltaren 1% 2 gm TOPICAL Q8H PRN 10/24/24 10/24/24 History Gel] HYDROcodone/APAP 5-325MG [[place] 1 tab PO Q8H PRN 10/24/24 10/24/24 History 5-325] Hydrocortisone Cream 1 applic TOPICAL BID PRN 10/24/24 10/24/24 History [Hydrocortisone 2.5% Cream] Losartan Potassium [Cozaar] 100 mg PO DAILY 10/24/24 10/24/24 History Metoprolol Succinate (ER) [Toprol 37.5 mg PO DAILY 10/24/24 10/24/24 History Xl] Multivit-Min/FA/Lycopen/Lutein 1 tab PO DAILY 10/24/24 10/24/24 History [Centrum Silver Tablet] allopurinoL [Zyloprim] 100 mg PO DAILY 10/24/24 10/24/24 History hydrALAZINE HCL [Apresoline] 50 mg PO TID 10/24/24 10/24/24 History Allergies Allergy/AdvReac Type Severity Reaction Status Date / Time cyclobenzaprine Allergy Unknown Confused, Verified 10/24/24 19:54 [From Flexeril] had stroke. celecoxib [From Celebrex] Allergy Rash/Hives Verified 10/24/24 19:54 Physical Exam Vitals: Vital Signs Temp Pulse Pulse Resp BP Pulse Ox FiO2 10/25/24 09:00 66 10/25/24 08:50 67 18 119/60 96 10/25/24 08:06 68 18 93/67 96 10/25/24 06:37 78 10/25/24 06:27 62 10/25/24 06:20 64 18 101/69 100 10/25/24 05:51 96 10/25/24 03:36 54 L 16 105/72 100 10/25/24 01:18 62 16 113/89 99 10/25/24 00:23 40 10/24/24 22:11 64 16 112/85 100 10/24/24 21:20 50 L 10/24/24 20:49 51 L 10/24/24 19:42 65 14 104/75 99 10/24/24 19:37 14 10/24/24 19:08 50 10/24/24 19:01 70 18 96/72 100 10/24/24 18:45 55 L 17 94/60 99 10/24/24 18:35 61 17 109/67 100 10/24/24 18:33 98.0 F 61 16 92/59 86 L 10/24/24 18:32 16 10/24/24 17:20 95 10/24/24 17:05 97.8 F 50 L 18 108/72 98 Intake and Output 10/24/24 10/25/24 10/25/24 22:59 06:59 14:59 Intake Total 98.265 Balance 98.265 Intake: Intake, IV Titration 98.265 Amount Heparin Sod,Pork in 0.45% 98.265 NaCl 25,000 unit In 0.45 % NaCl 1 250ml.bag @ 18 UNITS/KG/HR 14.207 mls/hr IV .[id number] [facility] Rx#: [id number] Other: Weight 78.925 kg Results CBC & Chem 7: 10/25/24 08:12 10/25/24 08:12 Labs: Abnormal Lab Results - Last 24 Hours (Table) 10/24/24 10/24/24 10/24/24 Range/Units 17:35 17:35 17:35 WBC (4.50-10.00) 10*3/uL RBC (4.40-5.60) 10*6/uL Hgb (13.0-17.0) g/dL Hct (39.6-50.0) % MCV (80.0-97.0) fL MCH (27.0-32.0) pg Plt Count (140-440) 10*3/uL MPV (9.5-12.2) fL Lymphocytes # (0.90-5.00) 10*3/uL Eosinophils # (0.04-0.35) 10*3/uL PT 15.0 H (10.0-12.5) sec INR 1.4 H (<1.2) APTT 47.4 H (22.0-30.0) sec D-Dimer 2.19 H (<0.60) mg/L FEU VBG pH (7.31-7.41) VBG HCO3 (24-28) mmol/L Potassium 5.3 H (3.5-5.1) mmol/L Chloride (98-107) mmol/L Carbon Dioxide 21 L (22-30) mmol/L BUN 88 H (9-20) mg/dL Creatinine 2.21 H (0.66-1.25) mg/dL Glucose 107 H (74-99) mg/dL Magnesium 2.9 H (1.6-2.3) mg/dL Alkaline Phosphatase 166 H (38-126) U/L Troponin I 0.166 H* (0.000-0.034) ng/mL 10/24/24 10/24/24 10/24/24 Range/Units 18:42 18:42 21:06 WBC 2.76 L (4.50-10.00) 10*3/uL RBC 2.72 L (4.40-5.60) 10*6/uL Hgb 9.2 L (13.0-17.0) g/dL Hct 28.4 L (39.6-50.0) % MCV 104.4 H (80.0-97.0) fL MCH 33.8 H (27.0-32.0) pg Plt Count 58 L (140-440) 10*3/uL MPV 13.2 H (9.5-12.2) fL Lymphocytes # 0.18 L (0.90-5.00) 10*3/uL Eosinophils # 0.02 L (0.04-0.35) 10*3/uL PT (10.0-12.5) sec INR (<1.2) APTT (22.0-30.0) sec D-Dimer (<0.60) mg/L FEU VBG pH 7.26 L (7.31-7.41) VBG HCO3 22 L (24-28) mmol/L Potassium (3.5-5.1) mmol/L Chloride (98-107) mmol/L Carbon Dioxide (22-30) mmol/L BUN (9-20) mg/dL Creatinine (0.66-1.25) mg/dL Glucose (74-99) mg/dL Magnesium (1.6-2.3) mg/dL Alkaline Phosphatase (38-126) U/L Troponin I 0.157 H* (0.000-0.034) ng/mL 10/25/24 10/25/24 10/25/24 Range/Units 01:11 01:11 08:12 WBC (4.50-10.00) 10*3/uL RBC (4.40-5.60) 10*6/uL Hgb (13.0-17.0) g/dL Hct (39.6-50.0) % MCV (80.0-97.0) fL MCH (27.0-32.0) pg Plt Count (140-440) 10*3/uL MPV (9.5-12.2) fL Lymphocytes # (0.90-5.00) 10*3/uL Eosinophils # (0.04-0.35) 10*3/uL PT (10.0-12.5) sec INR (<1.2) APTT >200.0 H* (22.0-30.0) sec D-Dimer (<0.60) mg/L FEU VBG pH (7.31-7.41) VBG HCO3 (24-28) mmol/L Potassium 6.0 H (3.5-5.1) mmol/L Chloride 108 H (98-107) mmol/L Carbon Dioxide (22-30) mmol/L BUN 84 H (9-20) mg/dL Creatinine 2.23 H (0.66-1.25) mg/dL Glucose 139 H (74-99) mg/dL Magnesium (1.6-2.3) mg/dL Alkaline Phosphatase (38-126) U/L Troponin I 0.130 H* (0.000-0.034) ng/mL
[2024-10-25] MEDS: FUROSEMIDE 100 MG in SODIUM CHLORIDE 0.9% 90 ML IV SCH (20:22)
[2024-10-25 20:37] LABS: African American GFR (CKD) 26 (>60 ml/min/1.73 sqM); Anion Gap 14 mmol/L; Blood Urea Nitrogen 90 mg/dL (9-20); Carbon Dioxide 20 mmol/L (22-30); Chloride 102 mmol/L (98-107); Glucose 163 mg/dL (74-99); Non-African American GFR(CKD) 23 (>60 ml/min/1.73 sqM); Potassium 5.5 mmol/L (3.5-5.1); Sodium 136 mmol/L (137-145)
[2024-10-25] MEDS: TAMSULOSIN 0.4 MG CAP.ER.24H PO SCH (21:17)
[2024-10-25] MEDS: CALCIUM CARBONATE 500 MG CHEWABLE PO SCH (21:18)
[2024-10-25] MEDS: FERROUS SULFATE 325 MG TAB PO SCH (21:18)
[2024-10-25 21:41] LABS: Appearance,Urine Clear (Clear); Bilirubin,Urine Negative (Negative); Blood,Urine Negative (Negative); Color,Urine Light Yellow; Glucose,Urine (UA) Negative (Negative); Ketones,Urine Negative (Negative); Leukocyte Esterase,Urine Negative (Negative); Nitrite,Urine Negative (Negative); Protein,Urine Negative (Negative); Urobilinogen,Urine <2.0 mg/dL (<2.0)
[2024-10-25 22:29] LABS: Glucose,Whole Blood 152 mg/dL (70-110)
[2024-10-26] MEDS ORDERED: LORazepam 0.5 MG TAB PO PRN (00:50)
[2024-10-26] MEDS ORDERED: LORazepam 1 MG TAB PO PRN ×2 (00:50)
[2024-10-26] MEDS: SODIUM CHLORIDE 0.9% 250 ML IV SCH (01:30)
--- NOTE | 2024-10-26 01:37 | P.CNPUL ---
History of Present Illness Consult date: 10/26/24 Requesting physician: Obed Skinner Reason for consult: other (ICU management) Chief complaint: Shortness of breath, leg swelling History of present illness: Patient is an 85-year-old male with past medical history significant for COPD, heart failure, TAVR, hypertension, hyperlipidemia, alcohol abuse. Patient is hard of hearing and a poor historian. Reportedly, having episodes of hallucinat ions and tremors while at home. Per the ER note, presented on 10/24/2024, with a chief complaint of shortness of breath with associated lower extremity swelling. Initially, patient was placed on BiPAP. Workup in the ED including a chest x- ray demonstrating cardiomegaly, pulmonary vascular congestion, and small bilateral pleural effusions. NT proBNP was elevated at 2420. Remaining blood work including a CBC with a WBC count 1.9, hemoglobin 9.2, platelets 63,000. Most recent CMP from yesterday including a sodium 136, potassium 5.5, chloride 102, serum bicarb 20, BUN 90, creatinine 2.55, glucose 163. It appears patient sustained an acute kidney injury on top of chronic kidney disease. Also, his potassium was 6 millimoles per liter yesterday morning, received a potassium cocktail, most recently potassium is down to 5.5. Urinalysis unremarkable. EKG: Atrial fibrillation with controlled ventricular response, rate 72 bpm, no obvious acute ischemic changes. Serial troponins elevated at 0.166, 0.16, and 0.13 respectively. Patient initially was on a heparin infusion, cardiology has since discontinued the IV heparin. Eliquis has since been resumed. Patient does have history of valvular heart disease and transcatheter aortic valve replacement back performed in 2022. Most recent available echocardiogram from Oct, 2022 estimating a left ventricular ejection fraction of 55 to 60%, stable bioprosthetic valve, and suggesting mild pulmonary hypertension with RVSP of 46 mmHg. Patient was on a noninvasive BiPAP since early this morning. He was started on a Lasix infusion at 10 mg/h. Currently, the patient is being evaluated in room 259. He is awake and alert and on 2 L/min nasal cannula. No respiratory distress noted. Blood pressure has been marginally hypotensive, 92/38 mmHg. Heart rhythm appears atrial fibrillation with controlled ventricular response. His lower extremity swelling has improved per the patient. Patient denies any chest pain, heart palpitations, syncopal events, orthopnea. Admits occasional nonproductive cough. Denies infectious symptoms. Denies nausea, vomiting, diarrhea. Denies hematemesis, melena, hematochezia. States he did fall while drinking alcohol at home. Denies losing consciousness. No obvious signs of head trauma. Reports daily alcohol use, drinks 2-3 large glasses of whiskey mixed with coke per day. Unclear when his last drink was. Serum alcohol level was less than 10 on arrival. No immediate signs of alcohol withdrawal. Current vital signs: Temperature 97.6 F, heart rate 58 bpm, blood pressure 92/38 mmHg, SpO2 recorded at 92% on 2 L/min nasal cannula. Review of Systems Constitutional: Reports fatigue, Reports poor appetite, Reports weakness (Generalized), Denies chills, Denies fever, Denies weight gain, Denies weight loss Ears, nose, mouth and throat: Denies headache, Denies nasal congestion, Denies nasal discharge, Denies post-nasal drip, Denies sinus pain, Denies sinus pressure, Denies sore throat Cardiovascular: Reports as per HPI Respiratory: Reports cough, Reports dyspnea, Denies congestion, Denies cough with sputum, Denies excessive sputum, Denies hemoptysis, Denies home oxygen Gastrointestinal: Reports as per HPI Genitourinary: Denies dysuria, Denies hematuria Musculoskeletal: Reports gait dysfunction (Normally ambulates with walker), Denies limitation of motion Integumentary: Denies rash, Denies unusual bruising Neurological: Reports hearing difficulties, Reports tremors, Denies headaches, Denies numbness, Denies paralysis, Denies paresthesias, Denies seizures, Denies syncope, Denies visual changes Psychiatric: Denies anxiety, Denies depression Past Medical History Past Medical History: Atrial Fibrillation, COPD, CVA/TIA, Hearing Disorder / Deafness, Hyperlipidemia, Hypertension, Myocardial Infarction ([place]), Prostate Disorder Additional Past Medical History / Comment(s): Aortic Valve stenosis,Heart murmur, possible CVA or heart attack-pt not sure, back pain, gout, uses cane, hard of hearing-no hearing aides. Last Myocardial Infarction Date:: 2020 History of Any Multi-Drug Resistant Organisms: None Reported Past Surgical History: Appendectomy, Cardiac Valve Replacement, Heart Catheterization, Orthopedic Surgery Additional Past Surgical History / Comment(s): Reverse shoulder, right toe surgery, left hand ring finger surgery, colonoscopy, JUAN PABLO. Past Anesthesia/Blood Transfusion Reactions: No Reported Reaction Additional Past Anesthesia/Blood Transfusion Reaction / Comment(s): No hx blood transfusion. Past Psychological History: No Psychological Hx Reported Smoking Status: Former smoker Past Alcohol Use History: Daily Additional Past Alcohol Use History / Comment(s): Quit smoking at age 42, smoked 1/2 ppd. 2-3 mixed drinks daily. Past Drug Use History: None Reported - Past Family History Mother Family Medical History: Cancer Additional Family Medical History / Comment(s): Breast cancer. Father Family Medical History: Cancer Brother(s) Family Medical History: Cancer, Myocardial Infarction ([place]) Medications and Allergies Home Medications Medication Instructions Recorded Confirmed Type Cholecalciferol [Vitamin D3 (25 25 mcg PO DAILY 05/20/22 10/24/24 History Mcg = 1000 Iu)] Ferrous Sulfate [Iron] 325 mg PO HS 05/20/22 10/24/24 History Gabapentin [Neurontin] 200 mg PO BID 05/20/22 10/24/24 History Ipratropium [place] [Atrovent Hfa] 1 puff INHALATION RT-BID 05/20/22 10/24/24 History Loratadine 10 mg PO DAILY 05/20/22 10/24/24 History Omeprazole [PriLOSEC] 20 mg PO DAILY 05/20/22 10/24/24 History Tamsulosin [Flomax] 0.8 mg PO HS 05/20/22 10/24/24 History hydroCHLOROthiazide 25 mg PO DAILY 05/20/22 10/24/24 History Calcium Citrate 200mg 200 mg PO BID 04/02/23 10/24/24 History Magnesium Oxide 420mg 420 mg PO DAILY 04/02/23 10/24/24 History Apixaban [Eliquis] 5 mg PO BID 10/24/24 10/24/24 History Ascorbic Acid [Vitamin C] 500 mg PO DAILY 10/24/24 10/24/24 History Atorvastatin [Lipitor] 40 mg PO DAILY 10/24/24 10/24/24 History Diclofenac Sodium Gel [Voltaren 1% 2 gm TOPICAL Q8H PRN 10/24/24 10/24/24 History Gel] HYDROcodone/APAP 5-325MG [[place] 1 tab PO Q8H PRN 10/24/24 10/24/24 History 5-325] Hydrocortisone Cream 1 applic TOPICAL BID PRN 10/24/24 10/24/24 History [Hydrocortisone 2.5% Cream] Losartan Potassium [Cozaar] 100 mg PO DAILY 10/24/24 10/24/24 History Metoprolol Succinate (ER) [Toprol 37.5 mg PO DAILY 10/24/24 10/24/24 History Xl] Multivit-Min/FA/Lycopen/Lutein 1 tab PO DAILY 10/24/24 10/24/24 History [Centrum Silver Tablet] allopurinoL [Zyloprim] 100 mg PO DAILY 10/24/24 10/24/24 History hydrALAZINE HCL [Apresoline] 50 mg PO TID 10/24/24 10/24/24 History Allergies Allergy/AdvReac Type Severity Reaction Status Date / Time cyclobenzaprine Allergy Unknown Confused, Verified 10/24/24 19:54 [From Flexeril] had stroke. celecoxib [From Celebrex] Allergy Rash/Hives Verified 10/24/24 19:54 Physical Exam Vitals: Vital Signs Temp Pulse Pulse Resp BP Pulse Ox 10/26/24 00:30 58 L 12 92/38 94 L 10/26/24 00:15 62 14 93/53 98 10/26/24 00:00 97.6 F 51 L 12 94/61 98 10/25/24 23:45 63 15 99/60 98 10/25/24 23:30 61 15 88/64 98 10/25/24 23:15 60 12 85/55 99 10/25/24 23:00 60 10 L 89/67 99 10/25/24 22:45 57 L 20 92/58 99 10/25/24 22:30 107/95 10/25/24 22:28 100 10/25/24 22:14 55 L 18 135/110 99 10/25/24 21:45 55 L 18 83/60 98 10/25/24 21:24 60 18 115/94 99 10/25/24 21:00 55 L 18 93/45 98 10/25/24 20:23 59 L 10/25/24 20:18 55 L 18 83/55 97 10/25/24 20:09 56 L 10/25/24 19:00 54 L 18 73/47 97 10/25/24 18:00 56 L 18 81/48 98 10/25/24 17:00 60 20 95/71 10/25/24 16:05 60 18 88/52 95 10/25/24 14:00 67 18 95/70 99 10/25/24 13:00 71 18 89/59 98 10/25/24 12:00 70 18 93/60 99 10/25/24 11:43 64 10/25/24 11:37 99 10/25/24 11:34 64 10/25/24 11:25 59 L 18 86/50 98 10/25/24 10:45 97.3 F L 65 18 128/91 100 10/25/24 09:00 66 10/25/24 08:50 67 18 119/60 96 10/25/24 08:06 68 18 93/67 96 10/25/24 06:37 78 10/25/24 06:27 62 10/25/24 06:20 64 18 101/69 100 10/25/24 05:51 96 10/25/24 03:36 54 L 16 105/72 100 10/25/24 01:18 62 16 113/89 99 Intake and Output 10/25/24 10/25/24 10/26/24 14:59 22:59 06:59 Intake Total 10 Output Total 0 Balance 10 Intake: Intake, IV Titration 10 Amount Sodium Chloride 0.9% 1, 10 000 ml @ 20 mls/hr IV . Q24H [facility] Rx#:[id number] Output: Urine 0 Other: Weight 78.925 kg GENERAL EXAM: Alert, 84-year-old male, hard of hearing, on 2 L/min nasal cannula, comfortable in no apparent distress. HEAD: Normocephalic and atraumatic EYES: Normal reaction of pupils, equal size. NOSE: Clear with pink turbinates. THROAT: No erythema or exudates. NECK: No masses, no JVD. CHEST: No chest wall deformity. LUNGS: Equal air entry with expiratory wheezes heard best over the bilateral posterior lung brady. no conversational dyspnea or accessory muscle use while at rest CVS: S1 and S2 normal with soft systolic, irregular rhythm. No other extra heart sounds ABDOMEN: No hepatosplenomegaly, active bowel sounds, no guarding or rigidity. SPINE: No scoliosis or deformity SKIN: No rashes CENTRAL NERVOUS SYSTEM: No focal deficits, tone is normal in all 4 extremities. EXTREMITIES: There is mild nonpitting bilateral lower extremity edema. No clubbing or cyanosis. Peripheral pulses are intact. Results - Laboratory Findings CBC and BMP: 10/25/24 08:12 10/25/24 19:46 PT/INR, D-dimer PT 15.0 sec (10.0-12.5) H 10/24/24 17:35 INR 1.4 (<1.2) H 10/24/24 17:35 D-Dimer 2.19 mg/L FEU (<0.60) H 10/24/24 17:35 Abnormal lab findings: Abnormal Labs 10/24/24 10/24/24 10/24/24 17:35 17:35 17:35 WBC RBC Hgb Hct MCV MCH MCHC Plt Count MPV Neutrophils # Lymphocytes # Monocytes # Eosinophils # PT 15.0 H INR 1.4 H APTT 47.4 H D-Dimer 2.19 H VBG pH VBG HCO3 Sodium Potassium 5.3 H Chloride Carbon Dioxide 21 L BUN 88 H Creatinine 2.21 H Glucose 107 H POC Glucose (mg/dL) Magnesium 2.9 H Alkaline Phosphatase 166 H Troponin I 0.166 H* 10/24/24 10/24/24 10/24/24 18:42 18:42 21:06 WBC 2.76 L RBC 2.72 L Hgb 9.2 L Hct 28.4 L MCV 104.4 H MCH 33.8 H MCHC Plt Count 58 L MPV 13.2 H Neutrophils # Lymphocytes # 0.18 L Monocytes # Eosinophils # 0.02 L PT INR APTT D-Dimer VBG pH 7.26 L VBG HCO3 22 L Sodium Potassium Chloride Carbon Dioxide BUN Creatinine Glucose POC Glucose (mg/dL) Magnesium Alkaline Phosphatase Troponin I 0.157 H* 10/25/24 10/25/24 10/25/24 01:11 01:11 08:07 WBC RBC Hgb Hct MCV MCH MCHC Plt Count MPV Neutrophils # Lymphocytes # Monocytes # Eosinophils # PT INR APTT >200.0 H* >200.0 H* D-Dimer VBG pH VBG HCO3 Sodium Potassium Chloride Carbon Dioxide BUN Creatinine Glucose POC Glucose (mg/dL) Magnesium Alkaline Phosphatase Troponin I 0.130 H* 10/25/24 10/25/24 10/25/24 08:12 08:12 14:47 WBC 1.90 L RBC 2.76 L Hgb 9.2 L Hct 29.8 L MCV 108.0 H MCH 33.3 H MCHC 30.9 L Plt Count 63 L MPV 12.5 H Neutrophils # 1.70 L Lymphocytes # 0.13 L Monocytes # 0.06 L Eosinophils # 0.00 L PT INR APTT 48.7 H D-Dimer VBG pH VBG HCO3 Sodium Potassium 6.0 H Chloride 108 H Carbon Dioxide BUN 84 H Creatinine 2.23 H Glucose 139 H POC Glucose (mg/dL) Magnesium Alkaline Phosphatase Troponin I 10/25/24 10/25/24 19:46 22:28 WBC RBC Hgb Hct MCV MCH MCHC Plt Count MPV Neutrophils # Lymphocytes # Monocytes # Eosinophils # PT INR APTT D-Dimer VBG pH VBG HCO3 Sodium 136 L Potassium 5.5 H Chloride Carbon Dioxide 20 L BUN 90 H Creatinine 2.55 H Glucose 163 H POC Glucose (mg/dL) 152 H Magnesium Alkaline Phosphatase Troponin I - Diagnostic Findings Chest x-ray: image reviewed Assessment and Plan Assessment: Acute CHF exacerbation, with preserved ejection fraction Chronic obstructive pulmonary disease, likely in exacerbation Acute hypoxemic respiratory failure, secondary to combination of above, currently on 2 L/min nasal cannula; chest x-ray demonstrating cardiomegaly, pulmonary vascular congestion, and bilateral pleural effusions. NT proBNP was elevated at 2420. Previously, placed on a Lasix infusion at 10 mg/h Atrial fibrillation with controlled ventricular response, anticoagulated on Eliquis History of valvular heart disease, status post transcatheter aortic valve replacement in 2022 Elevated troponins, previously evaluated by cardiology, IV heparin has been discontinued History of hypertension History of hyperlipidemia Acute kidney injury, on top of chronic kidney disease Severe hyperkalemia, secondary to above, potassium down to 5.5 Pancytopenia History of alcohol abuse, serum alcohol less than 10 on arrival Hard of hearing Former tobacco smoker Plan: Patient's medications, labs, chest x-ray reviewed BiPAP has since been discontinued, and patient is currently tolerating 2 L/min nasal cannula Blood pressure is marginal at this point Lasix infusion to be discontinued IV Heparin has previously been discontinued, and Eliquis has been restarted Repeat echocardiogram was ordered Continue DuoNebs [id number] and add IV Solu-Medrol Monitor CIWA per protocol Appreciate multiple other consultations including: Cardiology, nephrology, hematology/oncology We will also continue to follow patient while in the intensive care unit I have personally seen and examined the patient, performed the documentation and the assessment and plan as written. Number of minutes spent on the visit:20 Time with Patient: Greater than 30
[2024-10-26] MEDS: methylPREDNISolone SOD SUCCI 40 MG/ML 1 ML VIAL IV SCH (02:07)
[2024-10-26] MEDS: LORazepam 1 MG TAB PO PRN ×2 (04:23→14:21)
[2024-10-26 06:04] LABS: HCT 26.2 % (39.6-50.0); HGB 8.1 g/dL (13.0-17.0); Lymphocytes # (A) 0.05 10*3/uL (0.90-5.00); Lymphocytes % (A) 1.1 %; MCH 33.6 pg (27.0-32.0); MCHC 30.9 g/dL (32.0-37.0); Mean Platelet Volume 12.5 fL (9.5-12.2); Monocytes # (A) 0.22 10*3/uL (0.20-1.00); Monocytes % (A) 4.8 %; Neutrophils # (A) 4.28 10*3/uL (1.80-7.70); Neutrophils % (A) 93.7 %; RBC 2.41 10*6/uL (4.40-5.60); RDW 19.1 % (11.5-14.5); WBC 4.57 10*3/uL (4.50-10.00)
[2024-10-26 06:25] LABS: Platelet Count 57 10*3/uL (140-440)
[2024-10-26 06:27] LABS: MCV 108.7 fL (80.0-97.0)
[2024-10-26 06:29] LABS: ALT 20 U/L (4-49); AST 38 U/L (17-59); African American GFR (CKD) 21 (>60 ml/min/1.73 sqM); Albumin 3.6 g/dL (3.5-5.0); Alkaline Phosphatase 141 U/L (38-126); Anion Gap 9 mmol/L; Blood Urea Nitrogen 90 mg/dL (9-20); Calcium 8.5 mg/dL (8.4-10.2); Carbon Dioxide 22 mmol/L (22-30); Chloride 104 mmol/L (98-107); Glucose 134 mg/dL (74-99); Non-African American GFR(CKD) 18 (>60 ml/min/1.73 sqM); Potassium 5.6 mmol/L (3.5-5.1); Sodium 135 mmol/L (137-145); Total Protein 6.1 g/dL (6.3-8.2)
--- NOTE | 2024-10-26 06:33 | XR ---
EXAMINATION TYPE: XR chest 1V portable DATE OF EXAM: 10/26/2024 5:54 AM COMPARISON: 10/24/2024 CLINICAL INDICATION: Male, 84 years old with history of f/u CHF exacerbation, TECHNIQUE: XR chest 1V portable views of the chest are obtained. FINDINGS: Demonstrated are scattered senescent parenchymal change. There is no evidence for focal infiltrate. Continued cardiomegaly with small effusions greater on the right. Pulmonary venous congestion without overt failure. Hilar and mediastinal structures are within normal limits. Degenerative changes are seen of the dorsal spine. IMPRESSION: 1. Continued cardiomegaly with small effusions greater on the right. Pulmonary venous congestion wit hout overt failure. [facility], , 10/26/2024 6:30 AM
--- NOTE | 2024-10-26 07:36 | US ---
EXAMINATION TYPE: US abd limited kidneys/bladder DATE OF EXAM: 10/26/2024 COMPARISON: US(07/28/2023) CLINICAL INDICATION: Male, 84 years old with history of History of alcohol intake. Evaluate liver/as cites; CHF TECHNIQUE: Grayscale and color Doppler imaging of the right upper quadrant including the kidneys and urinary bladder. FINDINGS: EXAM MEASUREMENTS: Liver Length: 17.6 cm Gallbladder Wall: 0.6 cm CBD: 0.6 cm Right Kidney: 8.6x5.0x5.2 cm Left Kidney: 9.3x4.7x4.6 cm Pancreas: Obscured by bowel gas Liver: cirrhotic, heterogeneous course echotexture Gallbladder: ?thickened irregular wall: 0.6cm CBD: wnl Right Kidney: Multiple Anechoic area seen, Largest: 1. (inf): 1.9x1.3x2.6cm 2, (sup): 1.4x1.3x1.4cm Left Kidney: wnl Bladder: wnl Bilateral Jets Seen yes, limited SOCK IRONER NOTES: Ascites seen throughout abdomen IMPRESSION: 1. Correlate for hepatic cirrhosis. 2. Gallbladder wall thickening could be related to hypoalbuminemia. Correlate clinically. 3. Ascites [facility], , 10/26/2024 7:34 AM
[2024-10-26] MEDS: IPRATROPIUM-ALBUTEROL 3 ML NEB INHALATION SCH (07:49)
[2024-10-26] MEDS: NOREPINEPHRINE 4 MG in SODIUM CHLORIDE 0.9% 250 ML IV SCH (10:05)
[2024-10-26 11:21] VITALS: BMI 28.9
--- NOTE | 2024-10-26 11:23 | P.NPCON ---
History of Present Illness - Reason for Consult acute renal failure - History of Present Illness Patient is an 84-year-old male with history of COPD, hypertension, coronary artery disease and BPH. He has a history of significant alcohol intake as well. Patient is admitted to the hospital with mental status changes and hallucinations. He also was noticed to have thickened shaking/jerking movements of his extremities. Blood pressure has been low with systolic blood pressure in the 70s and 80s. Patient was restarted on Levophed. Echocardiogram shows moderate pericardial effusion. This was just performed. Chest x-ray shows cardiomegaly and pulmonary vascular congestion. Patient has had poor urine output and only about 150 cc of of urine obtained for this shift. Potassium was elevated at 6 on initial admission, currently decreased to 5.6. Serum creatinine was 2.2 on admission and increased to 3.0 today. Previous creatinine was 1.5 on 11/14/2023. Maintained on hydrochlorothiazide at home and Cozaar. No NSAIDs noted on home med list. Past Medical History Past Medical History: Atrial Fibrillation, COPD, CVA/TIA, Hearing Disorder / Deafness, Hyperlipidemia, Hypertension, Myocardial Infarction ([place]), Prostate Disorder Additional Past Medical History / Comment(s): Aortic Valve stenosis,Heart murmur, possible CVA or heart attack-pt not sure, back pain, gout, uses cane, hard of hearing-no hearing aides. Last Myocardial Infarction Date:: 2020 History of Any Multi-Drug Resistant Organisms: None Reported Past Surgical History: Appendectomy, Cardiac Valve Replacement, Heart Catheterization, Orthopedic Surgery Additional Past Surgical History / Comment(s): Reverse shoulder, right toe surgery, left hand ring finger surgery, colonoscopy, JUAN PABLO. Past Anesthesia/Blood Transfusion Reactions: No Reported Reaction Additional Past Anesthesia/Blood Transfusion Reaction / Comment(s): No hx blood transfusion. Past Psychological History: No Psychological Hx Reported Smoking Status: Former smoker Past Alcohol Use History: Daily Additional Past Alcohol Use History / Comment(s): Quit smoking at age 42, smoked 1/2 ppd. 2-3 mixed drinks daily. Past Drug Use History: None Reported - Past Family History Mother Family Medical History: Cancer Additional Family Medical History / Comment(s): Breast cancer. Father Family Medical History: Cancer Brother(s) Family Medical History: Cancer, Myocardial Infarction ([place]) Medications and Allergies Home Medications Medication Instructions Recorded Confirmed Type Cholecalciferol [Vitamin D3 (25 25 mcg PO DAILY 05/20/22 10/24/24 History Mcg = 1000 Iu)] Ferrous Sulfate [Iron] 325 mg PO HS 05/20/22 10/24/24 History Gabapentin [Neurontin] 200 mg PO BID 05/20/22 10/24/24 History Ipratropium [place] [Atrovent Hfa] 1 puff INHALATION RT-BID 05/20/22 10/24/24 History Loratadine 10 mg PO DAILY 05/20/22 10/24/24 History Omeprazole [PriLOSEC] 20 mg PO DAILY 05/20/22 10/24/24 History Tamsulosin [Flomax] 0.8 mg PO HS 05/20/22 10/24/24 History hydroCHLOROthiazide 25 mg PO DAILY 05/20/22 10/24/24 History Calcium Citrate 200mg 200 mg PO BID 04/02/23 10/24/24 History Magnesium Oxide 420mg 420 mg PO DAILY 04/02/23 10/24/24 History Apixaban [Eliquis] 5 mg PO BID 10/24/24 10/24/24 History Ascorbic Acid [Vitamin C] 500 mg PO DAILY 10/24/24 10/24/24 History Atorvastatin [Lipitor] 40 mg PO DAILY 10/24/24 10/24/24 History Diclofenac Sodium Gel [Voltaren 1% 2 gm TOPICAL Q8H PRN 10/24/24 10/24/24 His tory Gel] HYDROcodone/APAP 5-325MG [[place] 1 tab PO Q8H PRN 10/24/24 10/24/24 History 5-325] Hydrocortisone Cream 1 applic TOPICAL BID PRN 10/24/24 10/24/24 History [Hydrocortisone 2.5% Cream] Losartan Potassium [Cozaar] 100 mg PO DAILY 10/24/24 10/24/24 History Metoprolol Succinate (ER) [Toprol 37.5 mg PO DAILY 10/24/24 10/24/24 History Xl] Multivit-Min/FA/Lycopen/Lutein 1 tab PO DAILY 10/24/24 10/24/24 History [Centrum Silver Tablet] allopurinoL [Zyloprim] 100 mg PO DAILY 10/24/24 10/24/24 History hydrALAZINE HCL [Apresoline] 50 mg PO TID 10/24/24 10/24/24 History Allergies Allergy/AdvReac Type Severity Reaction Status Date / Time cyclobenzaprine Allergy Unknown Confused, Verified 10/24/24 19:54 [From Flexeril] had stroke. celecoxib [From Celebrex] Allergy Rash/Hives Verified 10/24/24 19:54 Physical Exam Vitals: Vital Signs Temp Pulse Resp BP Pulse Ox 10/26/24 10:56 77 10/26/24 10:45 84 10/26/24 10:15 74 21 83/51 94 L 10/26/24 10:00 99.1 F 80 14 76/47 95 10/26/24 09:45 81 15 79/50 96 10/26/24 09:30 78 17 86/56 94 L 10/26/24 09:15 81 7 L 81/50 96 10/26/24 09:00 86 21 81/50 96 10/26/24 08:30 74 16 92/69 96 10/26/24 08:00 98.5 F 72 13 104/63 99 10/26/24 07:49 74 10/26/24 07:30 66 11 L 99/66 92 L 10/26/24 07:00 96.9 F L 64 12 96/57 96 10/26/24 06:45 64 12 94/55 98 10/26/24 06:30 63 12 95/59 98 10/26/24 06:15 66 12 83/61 97 10/26/24 06:00 63 12 84/57 97 10/26/24 05:45 65 12 82/56 97 10/26/24 05:30 52 L 12 85/58 98 10/26/24 05:15 60 12 93/52 98 10/26/24 05:00 62 12 111/57 99 10/26/24 04:45 61 12 98/59 98 10/26/24 04:30 68 17 104/73 98 10/26/24 04:15 58 L 22 94/67 98 10/26/24 04:00 94.4 F L 68 12 94/60 98 10/26/24 03:45 64 12 87/63 95 10/26/24 03:30 58 L 13 99/70 95 10/26/24 03:15 66 13 83/55 95 10/26/24 03:00 52 L 12 88/56 95 10/26/24 02:45 59 L 12 87/65 95 10/26/24 02:30 57 L 12 83/55 95 10/26/24 02:15 61 12 84/57 97 10/26/24 02:00 62 12 85/53 95 10/26/24 01:45 64 12 90/53 95 10/26/24 01:30 61 12 82/62 95 10/26/24 01:15 64 14 75/54 95 10/26/24 01:00 58 L 13 86/55 95 10/26/24 00:45 64 12 79/57 95 10/26/24 00:30 58 L 12 92/38 94 L 10/26/24 00:15 62 14 93/53 98 10/26/24 00:00 97.6 F 51 L 12 94/61 98 10/25/24 23:45 63 15 99/60 98 10/25/24 23:30 61 15 88/64 98 10/25/24 23:15 60 12 85/55 99 10/25/24 23:00 60 10 L 89/67 99 10/25/24 22:45 57 L 20 92/58 99 10/25/24 22:30 107/95 10/25/24 22:28 100 10/25/24 22:14 55 L 18 135/110 99 10/25/24 21:45 55 L 18 83/60 98 10/25/24 21:24 60 18 115/94 99 10/25/24 21:00 55 L 18 93/45 98 10/25/24 20:23 59 L 10/25/24 20:18 55 L 18 83/55 97 10/25/24 20:09 56 L 10/25/24 19:00 54 L 18 73/47 97 10/25/24 18:00 56 L 18 81/48 98 10/25/24 17:00 60 20 95/71 10/25/24 16:05 60 18 88/52 95 10/25/24 14:00 67 18 95/70 99 10/25/24 13:00 71 18 89/59 98 10/25/24 12:00 70 18 93/60 99 10/25/24 11:43 64 10/25/24 11:37 99 10/25/24 11:34 64 04/28/25 11:25 59 L 18 86/50 98 Intake and Output 10/25/24 10/26/24 10/26/24 22:59 06:59 14:59 Intake Total 310 50 Output Total 0 150 Balance 310 -100 Intake: IV 20 Sodium Chloride 0.9% 1, 20 000 ml @ 20 mls/hr IV . Q24H [facility] Rx#:[id number] Intake, IV Titration 310 30 Amount Sodium Chloride 0.9% 1, 60 30 000 ml @ 20 mls/hr IV . Q24H [facility] Rx#:[id number] Sodium Chloride 0.9% 250 250 ml @ 999 mls/hr IV .Q16M [facility] Rx#:[id number] Output: Urine 0 150 Other: Voiding Method External Catheter External Catheter Weight 78.925 kg Patient is awake, comfortable, no acute distress Questions appropriately Examination of the heart S1 and S2 Examination of the lungs decreased breath sounds at the bases Abdomen is soft nontender Examination lower extremity shows edema 1+ bilaterally [employer] exam shows patient moving all 4 extremities. Results - Lab Results Most recent lab results Calcium 8.5 mg/dL (8.4-10.2) 10/26/24 05:37 Phosphorus 4.5 mg/dL (2.5-4.5) 10/24/24 17:35 Magnesium 2.9 mg/dL (1.6-2.3) H 10/24/24 17:35 10/26/24 05:37 10/26/24 05:37 Assessment and Plan Assessment: 1. Acute kidney injury, ATN from hypotension, oliguric with improving urine output. Currently not on IV fluids due to volume overload. Rule out hepatorenal syndrome Moderate pericardial effusion noted which may be contributing to hypotension. Official report is pending 2. Mental status changes most likely metabolic encephalopathy. Check ammonia level 3. History of significant alcohol intake on a regular basis with serum alcohol less than 10 on admission 4. Hyperkalemia associated with acute kidney injury, improved. Maintained on Lokelma Plan: Insert Go catheter if patient does not empty his bladder. 200 cc of urine noted on bladder scan. Currently with external catheter IV Lasix x 1 Continue off of IV fluids Continue Lokelma for 3 more doses Add oral midodrine Patient may need pericardiocentesis if there is evidence of tamponade. Thank you for the consultation. We will continue to follow the patient with you during his hospitalization.
--- NOTE | 2024-10-26 11:52 | P.PN ---
Subjective Progress Note Date: 10/26/24 Principal diagnosis: Hospital course: This is a 84-year-old male with a past medical history significant for nonobstructive CAD, severe aortic stenosis with previous TAVR, hypertension, hyperlipidemia, and atrial fibrillation. Patient follows in the office with Dr. Javier. We have been asked to see the patient in consultation for CHF. Patient examined at the bedside. Patient presented to the ER with a chief complaint shortness of breath. Patient's family is at the bedside and states that patient has been shaking a lot at home. They report he has been falling frequently and is very weak. They state for the past 2 to 3 days he has been having susanne lucinations at home where he has been seeing his in the house. DIAGNOSTICS: - EKG reveals atrial fibrillation with controlled ventricular rate. - Chest xray cardiomegaly, pulmonary vascular congestion and bilateral pleural effusions. - Laboratory data: WBC 2.76. Hemoglobin 9.2. Platelet count 58. D-dimer 2.19. Sodium 139. Potassium 6.0. BUN 84. Creatinine 2.23. Troponin 0.166. 0.157. 0.130. proBNP 2420. - Current home cardiac medications include Eliquis 5 mg twice a day, Lipitor 40 mg daily, losartan 100 mg daily, metoprolol succinate 37.5 mg daily, hydralazine 50 mg 3 times daily, hydrochlorothiazide 25 mg daily. - Most recent echocardiogram obtained in October 2022 revealed ejection fraction 55 to 60%, post TAVR with normally functioning bioprosthetic valve with peak gr adient 16 and mean gradient 11. Trace to mild aortic regurgitation. Mild TR. - Cardiac catheterization history: [address] Javier revealing codominant/right dominant system. 60% proximal RCA with heavily calcification and good size posterior descending artery branch that comes off from RCA. Left main has no significant disease and is very small. LAD has 30 to 40% narrowing. PLV branch it comes off of nondominant circumflex has 50% narrowing. No other significant disease in the rest of the circumflex. 10/26/24: Patient seen and examined at bedside today. BP 83/51, pulse rate 74 bpm. Labs today show WBC 4.57, hemoglobin 8.1, platelet count 57, sodium 135, potassium 5.6, creatinine 3.05, BUN 90. Abnormal creatinine ultrasound shows ascites, gallbladder wall thickening could be due to hypoalbuminemia, correlate for hepatic cirrhosis. Chest x-ray shows continued cardiomegaly with small effusions greater on the right, pulmonary venous congestion without overt failure. Physical examination: VITAL SIGNS: Reviewed. GENERAL: Well-developed in no acute distress. HEENT: Head is normocephalic. Pupils are equal, round. Sclerae anicteric. Mucous membranes of the mouth are moist. Neck supple. No JVD or thyromegaly LUNGS: CTA bilateral, no wheezes, no rhonchi HEART: Irregular rate and rhythm. S1 and S2 heard. ABDOMEN: Soft. Nondistended. Nontender. EXTREMITIES: Normal range of motion. No clubbing or cyanosis. Peripheral pu lses intact. No lower extremity edema Assessment: Acute hypoxic respiratory failure Pancytopenia Acute kidney injury Elevated troponins, flat, likely secondary to poor renal clearance, no evidence of myocardial injury or ischemia Generalized weakness with frequent falls, per family Hallucinations, per family History of severe aortic stenosis with previous TAVR, 2022 Nonobstructive coronary artery disease Persistent atrial fibrillation with controlled ventricular rate Hypertension Hyperlipidemia Plan: Obtain 2D echo to assess cardiac structure and function An acute coronary event has been ruled out Continue Eliquis 2.5 BID, Dose adjusted due to age and kidney function Obtain blood cultures Consult hematology for evaluation of thrombocytopenia and recommendations for anticoagulation No indication for stress testing or cardiac catheterization at this time Further recommendations pending patient course Objective - Vital Signs Vital signs: Vital Signs Temp 99.1 F 10/26/24 10:00 Pulse 74 10/26/24 10:15 Resp 21 10/26/24 10:15 BP 83/51 10/26/24 10:15 Pulse Ox 94 L 10/26/24 10:15 FiO2 40 10/25/24 00:23 Intake & Output 10/25/24 10/26/24 10/26/24 18:59 06:59 18:59 Intake Total 310 50 Output Total 0 150 Balance 310 -100 Weight 78.925 kg Intake: IV 20 Sodium Chloride 0.9% 1, 20 000 ml @ 20 mls/hr IV . Q24H [facility] Rx#:[id number] Intake, IV Titration 310 30 Amount Sodium Chloride 0.9% 1, 60 30 000 ml @ 20 mls/hr IV . Q24H [facility] Rx#:[id number] Sodium Chloride 0.9% 250 250 ml @ 999 mls/hr IV .Q16M [facility] Rx#:[id number] Output: Urine 0 150 Other: Voiding Method External Catheter External Catheter - Labs CBC & Chem 7: 10/26/24 05:37 10/26/24 05:37 Labs: Abnormal Lab Results - Last 24 Hours (Table) 10/25/24 10/25/24 10/25/24 Range/Units 14:47 19:46 22:28 RBC (4.40-5.60) 10*6/uL Hgb (13.0-17.0) g/dL Hct (39.6-50.0) % MCV (80.0-97.0) fL MCH (27.0-32.0) pg MCHC (32.0-37.0) g/dL Plt Count (140-440) 10*3/uL MPV (9.5-12.2) fL Lymphocytes # (0.90-5.00) 10*3/uL Eosinophils # (0.04-0.35) 10*3/uL APTT 48.7 H (22.0-30.0) sec Sodium 136 L (137-145) mmol/L Potassium 5.5 H (3.5-5.1) mmol/L Carbon Dioxide 20 L (22-30) mmol/L BUN 90 H (9-20) mg/dL Creatinine 2.55 H (0.66-1.25) mg/dL Glucose 163 H (74-99) mg/dL POC Glucose (mg/dL) 152 H (70-110) mg/dL Alkaline Phosphatase (38-126) U/L Total Protein (6.3-8.2) g/dL 10/26/24 10/26/24 Range/Units 05:37 05:37 RBC 2.41 L (4.40-5.60) 10*6/uL Hgb 8.1 L (13.0-17.0) g/dL Hct 26.2 L (39.6-50.0) % MCV 108.7 H (80.0-97.0) fL MCH 33.6 H (27.0-32.0) pg MCHC 30.9 L (32.0-37.0) g/dL Plt Count 57 L (140-440) 10*3/uL MPV 12.5 H (9.5-12.2) fL Lymphocytes # 0.05 L (0.90-5.00) 10*3/uL Eosinophils # 0.00 L (0.04-0.35) 10*3/uL APTT (22.0-30.0) sec Sodium 135 L (137-145) mmol/L Potassium 5.6 H (3.5-5.1) mmol/L Carbon Dioxide (22-30) mmol/L BUN 90 H (9-20) mg/dL Creatinine 3.05 H (0.66-1.25) mg/dL Glucose 134 H (74-99) mg/dL POC Glucose (mg/dL) (70-110) mg/dL Alkaline Phosphatase 141 H (38-126) U/L Total Protein 6.1 L (6.3-8.2) g/dL
[2024-10-26] MEDS: FUROSEMIDE 10 MG/ML 2 ML VIAL IV ONE (12:20)
--- NOTE | 2024-10-26 12:26 | CA ---
Transthoracic Echo Report Name: Sean Garcia Age: 84 Gender: M : 1940 Exam Date: 10/26/2024 10:14 Exam Location: [facility] Ht (in): 65 Wt (lb): 174 Ordering Physician: Jaron Canada DO Attending/Referring Phys: [id number], [employer] Operator Valeri Fletcher RDCS Procedure CPT: Indications: Heart failure Cardiac Hx: TAVR Technical Quality: Fair Contrast 1: Total Dose (mL): Contrast 2: Total Dose (mL): MEASUREMENTS (Male / Female) Normal Values 2D ECHO LV Diastolic Diameter PLAX 3.8 cm 4.2 - 5.9 / 3.9 - 5.3 cm LV Systolic Diameter PLAX 1.9 cm IVS Diastolic Thickness 1.0 cm 0.6 - 1.0 / 0.6 - 0.9 cm LVPW Diastolic Thickness 1.3 cm 0.6 - 1.0 / 0.6 - 0.9 cm LV Relative Wall Thickness 0.6 RV Internal Dim ED PLAX 3.4 cm LVOT Diameter 1.7 cm LA Systolic Diameter LX 6.0 cm 3.0 - 4.0 / 2.7 - 3.8 cm LV Diastolic Volume MOD BP 43.0 cm??? 67 - 155 / 56 - 104 cm??? LV Systolic Volume MOD BP 11.1 cm??? 22 - 58 / 19 - 49 cm??? LV Ejection Fraction MOD BP 74.1 % >= 55 % LV Cardiac Index MOD BP 1339.2 cm???/min???m??? LV Diastolic Volume MOD 4C 36.6 cm??? LV Systolic Volume MOD 4C 12.1 cm??? LV Ejection Fraction MOD 4C 66.8 % LV Cardiac Index MOD 4C 1029.6 cm???/min???m??? LV Diastolic Length 4C 6.0 cm LV Systolic Length 4C 5.5 cm LV Diastolic Volume MOD 2C 46.4 cm??? LV Systolic Volume MOD 2C 10.4 cm??? LV Ejection Fraction MOD 2C 77.6 % LV Cardiac Index MOD 2C 1514.3 cm???/min???m??? LV Diastolic Length 2C 6.7 cm LV Systolic Length 2C 5.4 cm M-MODE Aortic Root Diameter MM 2.7 cm LA Systolic Diameter MM 5.8 cm LA Ao Ratio MM 2.1 DOPPLER AV Peak Velocity 233.5 cm/s AV Peak Gradient 21.8 mmHg AV Mean Velocity 161.9 cm/s AV Mean Gradient 12.1 mmHg AV Velocity Time Integral 45.6 cm AI Peak Velocity 287.2 cm/s AI Peak Gradient 33.0 mmHg AI Pressure Half Time 500.0 ms LVOT Peak Velocity 100.9 cm/s LVOT Peak Gradient 4.1 mmHg LVOT Velocity Time Integral 20.4 cm LVOT Stroke Volume 48.8 cm??? LVOT Stroke Volume Index 26.2 ml/m??? LVOT Cardiac Index 2052.4 cm???/min???m??? AV Area Cont Eq vti 1.1 cm??? AV Area Cont Eq pk 1.0 cm??? Mitral E Point Velocity 107.4 cm/s Mitral A Point Velocity 2.3 cm/s Mitral E to A Ratio 47.6 MV Deceleration Time 230.9 ms MV E' Velocity 7.3 cm/s Mitral E to MV E' Ratio 14.8 TR Peak Velocity 232.3 cm/s TR Peak Gradient 31.5 mmHg Right Ventricular Systolic Press 51.5 mmHg FINDINGS Left Ventricle Left ventricular ejection fraction is estimated at 60-65 %. Normal left ventricular systolic function with no obvious regional wall motion abnormalities. Left ventricular cavity size normal. Right Ventricle Severe right ventricular dilatation. Reduced right ventricular global systolic function. Moderate pulmonary hypertension. Right Atrium Severe right atrial dilatation. Left Atrium Severely increased left atrial diameter. Mitral Valve Structurally normal mitral valve. Mild mitral regurgitation. No mitral stenosis. Aortic Valve Normally functioning bioprosthetic aortic valve without stenosis with a peak velocity of 2.33m/s, peak gradient 22mmHg, mean gradient 12mmHg. Mild paravalvular aortic regurgitation. Tricuspid Valve Annular dilatation of the tricuspid valve. Severe tricuspid regurgitation. No tricuspid stenosis. Pulmonic Valve Structurally normal pulmonic valve. Trace pulmonic regurgitation. No pulmonic stenosis. Pericardium Moderate pericardial effusion. Left pleural effusion. Aorta Normal size aortic root and proximal ascending aorta. CONCLUSIONS Left ventricular ejection fraction 60 to 65% Moderate to severe right ventricular dilation Mildly reduced right ventricular function RVSP 51, may be underestimated secondary to right ventricular dysfunction Severe biatrial enlargement Normally functioning bioprosthetic aortic valve Mild paravalvular aortic regurgitation Severe tricuspid regurgitation Moderate pericardial effusion without tamponade physiology Previewed by: Dr. Jaswinder Carson DO (Electronically Signed) Final Date: 26 October 2024 12:25
[2024-10-26] MEDS: SODIUM ZIRCONIUM CYCLOSILICATE 10 GM PACKET PO SCH (14:22)
[2024-10-26 15:33] LABS: % Iron Saturation 42.68 (15.00-50.00)
[2024-10-26] MEDS: MIDODRINE 5 MG TAB PO SCH (16:53)
--- NOTE | 2024-10-26 18:04 | P.CONS ---
History of Present Illness - Reason for Consult Consult date: 10/26/24 thrombocytopenia, AC recs Requesting physician: Lashon Lovett - Chief Complaint SOB - History of Present Illness Patient is an 84-year-old male with history of COPD, hypertension, coronary artery disease, and atrial fibrillation anticaogulated with Eliquis, and ETOH abuse. Patient presented to the hospital with complaints of shortness of breath, bilateral lower extremity edema and weakness. Patient was admitted to the hospital for mental status changes hallucinations and was noted to have shaky and jerking lumens of his extremities. He was also noted to be hypotensive and was started on Levophed. On admit chest x-ray showed cardiomegaly, pulmonary vascular congestion and bilateral pleural effusions. Abdominal ultrasound showing hepatic cirrhosis and ascites. CBC showing WBC 4.5, hemoglobin 8.1, platelets 57,000. Patient also was noted to have acute kidney injury with worsening kidney function, creatinine 3.05, GFR 18. Coags elevated, D-dimer 2.19. BNP 2420. Bilirubin 1.2, AST 38, ALT 20, ALP 141. Blood cultures negative thus far. Upon trending labs patient has had previously noted thrombocytopenia, however more pronounced during this admit. No reported episodes of bleeding, hematochezia and melena. Denies hematuria. Review of Systems 10 point ROS is negative except as stated in the HPI Past Medical History Past Medical History: Atrial Fibrillation, COPD, CVA/TIA, Hearing Disorder / Deafness, Hyperlipidemia, Hypertension, Myocardial Infarction ([place]), Prostate D isorder Additional Past Medical History / Comment(s): Aortic Valve stenosis,Heart murmur, possible CVA or heart attack-pt not sure, back pain, gout, uses cane, hard of hearing-no hearing aides. Last Myocardial Infarction Date:: 2020 History of Any Multi-Drug Resistant Organisms: None Reported Past Surgical History: Appendectomy, Cardiac Valve Replacement, Heart Catheterization, Orthopedic Surgery Additional Past Surgical History / Comment(s): Reverse shoulder, right toe surgery, left hand ring finger surgery, colonoscopy, JUAN PABLO. Past Anesthesia/Blood Transfusion Reactions: No Reported Reaction Additional Past Anesthesia/Blood Transfusion Reaction / Comm: No hx blood transfusion. Past Psychological History: No Psychological Hx Reported Smoking Status: Former smoker Past Alcohol Use History: Daily Additional Past Alcohol Use History / Comment(s): Quit smoking at age 42, smoked 1/2 ppd. 2-3 mixed drinks daily. Past Drug Use History: None Reported - Past Family History Mother Family Medical History: Cancer Additional Family Medical History / Comment(s): Breast cancer. Father Family Medical History: Cancer Brother(s) Family Medical History: Cancer, Myocardial Infarction ([place]) Medications and Allergies Home Medications Medication Instructions Recorded Confirmed Type Cholecalciferol [Vitamin D3 (25 25 mcg PO DAILY 05/20/22 10/24/24 History Mcg = 1000 Iu)] Ferrous Sulfate [Iron] 325 mg PO HS 05/20/22 10/24/24 History Gabapentin [Neurontin] 200 mg PO BID 05/20/22 10/24/24 History Ipratropium Trevor [Atrovent Hfa] 1 puff INHALATION RT-BID 05/20/22 10/24/24 History Loratadine 10 mg PO DAILY 05/20/22 10/24/24 History Omeprazole [PriLOSEC] 20 mg PO DAILY 05/20/22 10/24/24 History Tamsulosin [Flomax] 0.8 mg PO HS 05/20/22 10/24/24 History hydroCHLOROthiazide 25 mg PO DAILY 05/20/22 10/24/24 History Calcium Citrate 200mg 200 mg PO BID 04/02/23 10/24/24 History Magnesium Oxide 420mg 420 mg PO DAILY 04/02/23 10/24/24 History Apixaban [Eliquis] 5 mg PO BID 10/24/24 10/24/24 History Ascorbic Acid [Vitamin C] 500 mg PO DAILY 10/24/24 10/24/24 History Atorvastatin [Lipitor] 40 mg PO DAILY 10/24/24 10/24/24 History Diclofenac Sodium Gel [Voltaren 1% 2 gm TOPICAL Q8H PRN 10/24/24 10/24/24 History Gel] HYDROcodone/APAP 5-325MG [Hessel 1 tab PO Q8H PRN 10/24/24 10/24/24 History 5-325] Hydrocortisone Cream 1 applic TOPICAL BID PRN 10/24/24 10/24/24 History [Hydrocortisone 2.5% Cream] Losartan Potassium [Cozaar] 100 mg PO DAILY 10/24/24 10/24/24 History Metoprolol Succinate (ER) [Toprol 37.5 mg PO DAILY 10/24/24 10/24/24 History Xl] Multivit-Min/FA/Lycopen/Lutein 1 tab PO DAILY 10/24/24 10/24/24 History [Centrum Silver Tablet] allopurinoL [Zyloprim] 100 mg PO DAILY 10/24/24 10/24/24 History hydrALAZINE HCL [Apresoline] 50 mg PO TID 10/24/24 10/24/24 History Allergies Allergy/AdvReac Type Severity Reaction Status Date / Time cyclobenzaprine Allergy Unknown Confused, Verified 10/24/24 19:54 [From Flexeril] had stroke. celecoxib [From Celebrex] Allergy Rash/Hives Verified 10/24/24 19:54 Physical Exam Vitals: Vital Signs Temp Pulse Resp BP Pulse Ox 10/26/24 11:45 80 26 H 95/55 95 10/26/24 11:30 78 23 87/59 97 10/26/24 11:15 79 19 92/59 95 10/26/24 11:00 80 16 99/59 97 10/26/24 10:56 77 10/26/24 10:45 87 15 87/62 96 10/26/24 10:30 78 22 88/57 95 10/26/24 10:15 74 21 83/51 94 L 10/26/24 10:00 99.1 F 80 14 76/47 95 10/26/24 09:45 81 15 79/50 96 10/26/24 09:30 78 17 86/56 94 L 10/26/24 09:15 81 20 81/50 96 10/26/24 09:00 86 21 81/50 96 10/26/24 08:30 74 16 92/69 96 10/26/24 08:00 98.5 F 72 13 104/63 99 10/26/24 07:49 74 10/26/24 07:30 66 11 L 99/66 92 L 10/26/24 07:00 96.9 F L 64 12 96/57 96 10/26/24 06:45 64 12 94/55 98 10/26/24 06:30 63 12 95/59 98 10/26/24 06:15 66 12 83/61 97 10/26/24 06:00 63 12 84/57 97 10/26/24 05:45 65 12 82/56 97 10/26/24 05:30 52 L 12 85/58 98 10/26/24 05:15 60 12 93/52 98 10/26/24 05:00 62 12 111/57 99 10/26/24 04:45 61 12 98/59 98 10/26/24 04:30 68 17 104/73 98 10/26/24 04:15 58 L 22 94/67 98 10/26/24 04:00 94.4 F L 68 12 94/60 98 10/26/24 03:45 64 12 87/63 95 10/26/24 03:30 58 L 13 99/70 95 10/26/24 03:15 66 13 83/55 95 10/26/24 03:00 52 L 12 88/56 95 10/26/24 02:45 59 L 12 87/65 95 10/26/24 02:30 57 L 12 83/55 95 10/26/24 02:15 61 12 84/57 97 10/26/24 02:00 62 12 85/53 95 10/26/24 01:45 64 12 90/53 95 10/26/24 01:30 61 12 82/62 95 10/26/24 01:15 64 14 75/54 95 10/26/24 01:00 58 L 13 86/55 95 10/26/24 00:45 64 12 79/57 95 10/26/24 00:30 58 L 12 92/38 94 L 10/26/24 00:15 62 14 93/53 98 10/26/24 00:00 97.6 F 51 L 12 94/61 98 10/25/24 23:45 63 15 99/60 98 10/25/24 23:30 61 15 88/64 98 10/25/24 23:15 60 12 85/55 99 10/25/24 23:00 60 10 L 89/67 99 10/25/24 22:45 57 L 20 92/58 99 10/25/24 22:30 107/95 10/25/24 22:28 100 10/25/24 22:14 55 L 18 135/110 99 10/25/24 21:45 55 L 18 83/60 98 10/25/24 21:24 60 18 115/94 99 10/25/24 21:00 55 L 18 93/45 98 10/25/24 20:23 59 L 10/25/24 20:18 55 L 18 83/55 97 10/25/24 20:09 56 L 10/25/24 19:00 54 L 18 73/47 97 10/25/24 18:00 56 L 18 81/48 98 10/25/24 17:00 60 20 95/71 10/25/24 16:05 60 18 88/52 95 10/25/24 14:00 67 18 95/70 99 10/25/24 13:00 71 18 89/59 98 Intake and Output 10/25/24 10/26/24 10/26/24 22:59 06:59 14:59 Intake Total 310 70 Output Total 0 150 Balance 310 -80 Intake: IV 40 Sodium Chloride 0.9% 1, 40 000 ml @ 100 mls/hr IV . Q10H [facility] Rx#:[id number] Intake, IV Titration 310 30 Amount Sodium Chloride 0.9% 1, 60 30 000 ml @ 20 mls/hr IV . Q24H [facility] Rx#:[id number] Sodium Chloride 0.9% 250 250 ml @ 999 mls/hr IV .Q16M [facility] Rx#:[id number] Output: Urine 0 150 Other: Voiding Method External Catheter External Catheter Weight 78.925 kg 78.925 kg - Constitutional General appearance: average body habitus, no acute distress - EENT Eyes: anicteric sclerae, EOMI ENT: hearing grossly normal - Respiratory Respiratory: bilateral: diminished - Cardiovascular Rhythm: regular leg Peripheral Edema: bilateral: 3+ - Gastrointestinal General gastrointestinal: distended, no tenderness - Integumentary Integumentary: no cyanotic, no jaundiced, pale - Musculoskeletal Musculoskeletal: generalized weakness - Psychiatric lethargic Results CBC & Chem 7: 10/26/24 05:37 10/26/24 05:37 Labs: Abnormal Lab Results - Last 24 Hours (Table) 10/25/24 10/25/24 10/25/24 Range/Units 14:47 19:46 22:28 RBC (4.40-5.60) 10*6/uL Hgb (13.0-17.0) g/dL Hct (39.6-50.0) % MCV (80.0-97.0) fL MCH (27.0-32.0) pg MCHC (32.0-37.0) g/dL Plt Count (140-440) 10*3/uL MPV (9.5-12.2) fL Lymphocytes # (0.90-5.00) 10*3/uL Eosinophils # (0.04-0.35) 10*3/uL APTT 48.7 H (22.0-30.0) sec Sodium 136 L (137-145) mmol/L Potassium 5.5 H (3.5-5.1) mmol/L Carbon Dioxide 20 L (22-30) mmol/L BUN 90 H (9-20) mg/dL Creatinine 2.55 H (0.66-1.25) mg/dL Glucose 163 H (74-99) mg/dL POC Glucose (mg/dL) 152 H (70-110) mg/dL Alkaline Phosphatase (38-126) U/L Ammonia (<30) umol/L Total Protein (6.3-8.2) g/dL 10/26/24 10/26/24 10/26/24 Range/Units 05:37 05:37 11:43 RBC 2.41 L (4.40-5.60) 10*6/uL Hgb 8.1 L (13.0-17.0) g/dL Hct 26.2 L (39.6-50.0) % MCV 108.7 H (80.0-97.0) fL MCH 33.6 H (27.0-32.0) pg MCHC 30.9 L (32.0-37.0) g/dL Plt Count 57 L (140-440) 10*3/uL MPV 12.5 H (9.5-12.2) fL Lymphocytes # 0.05 L (0.90-5.00) 10*3/uL Eosinophils # 0.00 L (0.04-0.35) 10*3/uL APTT (22.0-30.0) sec Sodium 135 L (137-145) mmol/L Potassium 5.6 H (3.5-5.1) mmol/L Carbon Dioxide (22-30) mmol/L BUN 90 H (9-20) mg/dL Creatinine 3.05 H (0.66-1.25) mg/dL Glucose 134 H (74-99) mg/dL POC Glucose (mg/dL) (70-110) mg/dL Alkaline Phosphatase 141 H (38-126) U/L Ammonia 30 H (<30) umol/L Total Protein 6.1 L (6.3-8.2) g/dL Chest x-ray: report reviewed US - abdomen: report reviewed Assessment and Plan (1) Thrombocytopenia Current Visit: Yes Status: Acute Code(s): D69.6 - THROMBOCYTOPENIA, UNSPEC IFIED SNOMED Code(s): 086091512 (2) BRUNO (acute kidney injury) Current Visit: Yes Status: Acute Code(s): N17.9 - ACUTE KIDNEY FAILURE, UNSPECIFIED SNOMED Code(s): 83265198 (3) Altered mental status Current Visit: Yes Status: Acute Code(s): R41.82 - ALTERED MENTAL STATUS, UNSPECIFIED SNOMED Code(s): 324443343 (4) Bilateral leg edema Current Visit: Yes Status: Acute Code(s): R60.0 - LOCALIZED EDEMA SNOMED Code(s): 288077700 (5) CHF (congestive heart failure) Current Visit: Yes Status: Acute Code(s): I50.9 - HEART FAILURE, UNSPECIFIED SNOMED Code(s): 84718912 (6) NSTEMI (non-ST elevated myocardial infarction) Current Visit: Yes Status: Acute Code(s): I21.4 - NON-ST ELEVATION (NSTEMI) MYOCARDIAL INFARCTION SNOMED Code(s): 34728838 Plan: CHF exacerbation, NSTEMI: Patient presented to the hospital with complaints of shortness of breath, bilateral lower extremity edema and weakness. Patient was also having mental s tatus changes and was noted to have shaky and jerking movements of his extremities. He was found to be hypotensive and was started on Levophed and was admitted to the ICU -On admit chest x-ray showed cardiomegaly, pulmonary vascular congestion and bilateral pleural effusions. -BNP 2420. Diuretics have been started -Serial troponins elevated -Defer management to intensive care team and cardiology BRUNO: -BRUNO noted on admit, with worsening kidney function. -Today creatinine 3.05, GFR 18. -Nephrology following Thrombocytopenia: Mild thrombocytopenia noted since 2022. Last plts within EMR was 129,000 in September 2023. Patient has long history ETOH abuse, Drinking 2-3 large glasses of whiskey daily. No reported episodes of acute bleeding -Abdominal ultrasound showing hepatic cirrhosis and ascites. -Today CBC showing WBC 4.5, hemoglobin 8.1, platelets 57,000 Coags elevated. Bilirubin 1.2, AST 38, ALT 20, ALP 141. -Thrombocytopenia likely related to ongoing alcohol abuse and cirrhosis, superimposed by CHF exacerbation -Will obtain nutritional labs and DIC workup -From a hematology perspective patient can be continued on Eliquis as previously recommended for his atrial fibrillation as long plts are > 50,000. However, recommend accessing risk vs benefits, regarding continued alcohol abuse and possible worsening of liver function/thrombocytopenia as well as fall risk. -Continue to monitor CBC. Transfuse for hgb <7 and for plts <50,000 if patient remains on anticoagulation Doctor attests: I performed a history and physical examination of this patient, developed impression and plan of care. Discussed with dictator. I agree with dictators note, documented as a scribe.
[2024-10-26] MEDS: FUROSEMIDE 10 MG/ML 10 ML VIAL IV STA (18:10)
--- NOTE | 2024-10-26 20:13 | P.PN ---
Progress Note - Text Progress Note Date: 10/26/24 Chief Complaint: Multiple complaints This is a 84-year-old patient who follows with Dr. Jacobs. Chronic medical conditions include COPD, decreased hearing, hyperlipidemia hypertension previous ND enlarged prostate gout uses a cane/walker. Drinks 2-3 mixed drinks a day. History is obtained by patient's son Romario at the bedside and his . Patient lives with his other son Sean. Of recent patient's been having falls. Hallucinations seeing things. Unsteady. Shaking. Appetite is okay. Patient is hard of hearing but able to answer simple questions. They cannot tell why he is here. No fever or chills reported. Patient has a tickle in the throat and intermittently keeps coughing. Some shortness of breath October 26: Saw the patient this morning. Last night patient was hypotensive, and started on Lasix drip. Moved to the ICU. Not much urine output. Tremors better. More awake. Started on Levophed drip. Off Lasix. On Ventimask 2D echo showed EF of 60 to 65%. Severe right-sided dilatation. Moderate pericardial effusion. Left pleural effusion cardiology, nephrology, programs assistant following Active Medications Hydrocodone Bitart/Acetaminophen (Hydrocodone/Apap 5-325mg 1 Each Tab) 1 each PO Q8H PRN PRN Reason: Pain Last Admin: 10/25/24 14:10 Dose: 1 each Albuterol/Ipratropium (Ipratropium-Albuterol 3 Ml Neb) 3 ml INHALATION RT-QID [facility] Last Admin: 10/26/24 20:02 Dose: 3 ml Allopurinol (Allopurinol 100 Mg Tab) 100 mg PO DAILY [facility] Last Admin: 10/26/24 09:23 Dose: Not Given Apixaban (Apixaban 2.5 Mg Tablet) 2.5 mg PO BID [facility]; Protocol Last Admin: 10/26/24 09:10 Dose: 2.5 mg Atorvastatin Calcium (Atorvastatin 40 Mg Tab) 40 mg PO DAILY [facility] Last Admin: 10/26/24 09:23 Dose: Not Given Calcium Carbonate/Glycine (Calcium Carbonate 500 Mg Chewable) 500 mg PO BID [facility] Last Admin: 10/26/24 09:23 Dose: Not Given Diclofenac Sodium (Diclofenac Sodium Gel 100 Gm Tube) 2 gm TOPICAL Q8H PRN; Protocol PRN Reason: Pain Ferrous Sulfate (Ferrous Sulfate 325 Mg Tab) 325 mg PO HS [facility] Last Admin: 10/25/24 21:18 Dose: 325 mg Gabapentin (Gabapentin 100 Mg Cap) 200 mg PO HS [facility] Sodium Chloride (Saline 0.9%) 1,000 mls @ 100 mls/hr IV .Q10H [facility] Last Admin: 10/26/24 18:11 Dose: Not Given Norepinephrine Bitartrate 4 mg (/ Sodium Chloride) 254 mls @ 9.021 mls/hr IV .Q24H [facility]; Protocol Last Titration: 10/26/24 15:02 Dose: 0 mcg/kg/min, 0 mls/hr Lorazepam (Lorazepam 0.5 Mg Tab) 0.5 mg PO Q4HR PRN PRN Reason: Ciwa 4 To 5 Lorazepam (Lorazepam 1 Mg Tab) 1 mg PO Q4HR PRN PRN Reason: Ciwa 6 To 7 Lorazepam (Lorazepam 1 Mg Tab) 2 mg PO Q2HR PRN PRN Reason: Ciwa 10 or greater Last Admin: 10/26/24 14:21 Dose: 2 mg Lorazepam (Lorazepam 1 Mg Tab) 2 mg PO Q3HR PRN PRN Reason: Ciwa 8 To 9 Last Admin: 10/26/24 04:23 Dose: 2 mg Lorazepam (Lorazepam 1 Mg Tab) 1 mg PO Q1HR PRN PRN Reason: Alcohol Withdrawal Methylprednisolone Sodium Succinate (Methylprednisolone Sod Succi 40 Mg/Ml 1 Ml Vial) 40 mg IV Q12HR [facility] Last Admin: 10/26/24 09:13 Dose: 40 mg Metoprolol Succinate (Metoprolol Succinate (Er) 25 Mg Tab.Er.24h) 37.5 mg PO DAILY [facility] Last Admin: 10/26/24 09:09 Dose: Not Given Midodrine (Midodrine 5 Mg Tab) 5 mg PO AC-BID [facility] Last Admin: 10/26/24 16:53 Dose: Not Given Multivitamins (Multivitamins, Thera 1 Each Tab) 1 each PO DAILY [facility] Last Admin: 10/26/24 09:24 Dose: Not Given Pantoprazole Sodium (Pantoprazole 40 Mg Tablet) 40 mg PO DAILY [facility] Last Admin: 10/26/24 09:11 Dose: 40 mg Sodium Zirconium Cyclosilicate (Sodium Zirconium Cyclosilicate 10 Gm Packet) 10 gm PO TID [facility] Stop: 10/27/24 09:01 Last Admin: 10/26/24 16:53 Dose: Not Given Tamsulosin HCl (Tamsulosin 0.4 Mg Cap.Er.24h) 0.8 mg PO HS [facility] Last Admin: 10/25/24 21:17 Dose: 0.8 mg Thiamine HCl (Thiamine 100 Mg Tab) 100 mg PO DAILY [facility] Social history: Patient has least 2-3 mixed drinks daily. Stop smoking at the age of 42. Half a pack a day. Does use a cane/walker. Lives with his son Sean. Physical examination: VITAL SIGNS: 99.1, 80, 14, 76 x 47, 95% GENERAL: BMI 29, laying in bed, on Ventimask EYES: Pupils equal. Conjunctiva ramya l. HEENT: External appearance of nose and ears normal, oral cavity grossly normal. NECK: JVD unable to assess; masses not palpable. HEART: First and second heart sounds are normal; edema present. LUNGS: Respiratory rate increased, decreased breath sounds. ABDOMEN: Soft, nontender, liver spleen not palpable, no masses palpable. PSYCH: Answering simple questions MUSCULOSKELETAL:No Clubbing/cyanosis;muscles-grossly intact. OA and many joint NEUROLOGICAL: Cranial nerves grossly intact; no facial asymmetry, no further jerking INVESTIGATIONS, reviewed in the clinical context: Renal ultrasound: Possible hepatic cirrhosis. Ascites. 2D echo: EF 60 to 65%. Severe right ventricle dilatation. Moderate pulmonary hypertension. Normal functioning bioprosthetic arctic valve. Without stenosis. Severe tricuspid regurgitation. Moderate pericardial effusion left pleural effusion October 26: White count 4.5 hemoglobin 8.1 platelets 57 sodium 135 potassium 5.6 BUN 90 creatinine 3.05 October 25: White count 1.9 hemoglobin 9.2 platelets 63 sodium 139 potassium 6 BUN 84 creatinine 2.23 October 24: White count 2.7 hemoglobin 9.2 platelets 58. Sodium 139 potassium 5.3 BUN 88 creatinine 2.21 Troponin I, 0.166, 0.157, 0.130 Serum alcohol less than 10 EKG tracing personally reviewed by me-atrial fibrillation. Chest x-ray film personally reviewed by me-cardiomegaly, with pulm edema Prior labs: November 14, 2023: Creatinine 1.5 2D echo 2022: EF 50 to 60%. Moderate pulmonary hypertension. Normal functioning bioprosthetic valve. Assessment plan: - Acute congestive heart failure exacerbation probably diastolic dysfunction Initially IV Lasix twice daily. Then tried on Lasix drip 10 mg an hour. Strict I's and O's. Fluid restriction 2000 cc a day. Today Lasix drip discontinued - Bioprosthetic valve, aortic - Acute hypoxic respiratory failure On Ventimask - Acute delirium, metabolic encephalopathy likely from worsening kidney function. And hypoxia: Some improvement Supplemental oxygen. 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 Off Lasix - Moderate secondary pulmonary hypertension - Severe tricuspid regurgitation, - Acute hypoxia from CHF: Not improving On BiPAP - Acute kidney injury likely ATN from cardiorenal. Syndrome.: Worsening Renal ultrasound. Noted Lasix discontinued Nephrology following - Chronic kidney disease, with creatinine being 1.5 in October 2023. Stage III likely nephrosclerosis - Troponinemia. In the setting of worsening renal failure. No chest pain reported. Doubt ACS Cardiology following - Hyperkalemia. Kayexalate. Renal diet. - Tremors twitching reported by family. Likely from patient being on gabapentin in the setting of worsening renal function: Better Neurontin was initially held and dose cut back - Pancytopenia, could be from underlying liver disease. Given that patient been drinking alcohol for some time. Follow CBC - New diagnosis of atrial fibrillation. Rate controlled. Eliquis. -Alcohol use disorder. Leading to cirrhosis - Chronic hard of hearing, does not have hearing aids - Chronic gout Allopurinol - GERD PPI - BPH Flomax - Primary osteoarthritis multiple joints Diclofenac sodium topical - Full code - Medical power of banking attorney, son Andres Lasix discontinued. Prognosis guarded. Followed by multiple consultants Past Medical History Past Medical History: COPD, CVA/TIA, Hearing Disorder / Deafness, Hyperlipidemia, Hypertension, Myocardial Infarction (ND), Prostate Disorder Additional Past Medical History / Comment(s): Aortic Valve stenosis,Heart murmur, possible CVA or heart attack-pt not sure, back pain, gout, uses cane, hard of hearing-no hearing aides. Last Myocardial Infarction Date:: 2020? History of Any Multi-Drug Resistant Organisms: None Reported Past Surgical History: Appendectomy, Heart Catheterization, Orthopedic Surgery Additional Past Surgical History / Comment(s): Reverse shoulder, right toe surgery, left hand ring finger surgery, colonoscopy, JUAN PABLO. Past Anesthesia/Blood Transfusion Reactions: No Reported Reaction Additional Past Anesthesia/Blood Transfusion Reaction / Comment(s): No hx blood transfusion. Past Psychological History: No Psychological Hx Reported Smoking Status: Former smoker Past Alcohol Use History: Daily Past Drug Use History: None Reported
[2024-10-26 21:28] LABS: Glucose,Whole Blood 157 mg/dL (70-110)
[2024-10-26] MEDS: GABAPENTIN 100 MG CAP PO SCH (21:36)
[2024-10-26 21:52] LABS: ABG HCO3 22 mmol/L (21-25); ABG Oxygen Saturation 91.1 % (94-97); ABG PCO2 47 mmHg (35-45); ABG PH 7.27 (7.35-7.45); ABG TCO2 23 mmol/L (19-24); Allen Test Performed? Yes
[2024-10-26 21:59] LABS: ABG PO2 58 mmHg (83-108)
[2024-10-27 02:14] LABS: ABG Base Excess -4.9 mmol/L; ABG HCO3 23 mmol/L (21-25); ABG Oxygen Saturation 92.4 % (94-97); ABG PCO2 55 mmHg (35-45); ABG PH 7.22 (7.35-7.45); ABG PO2 65 mmHg (83-108); ABG TCO2 24 mmol/L (19-24); Allen Test Performed? Yes
[2024-10-27] MEDS: FUROSEMIDE 10 MG/ML 10 ML VIAL IV STA ×2 (02:31→09:13)
[2024-10-27 06:37] LABS: HCT 26.7 % (39.6-50.0); HGB 8.1 g/dL (13.0-17.0); MCH 32.7 pg (27.0-32.0); MCHC 30.3 g/dL (32.0-37.0); MCV 107.7 fL (80.0-97.0); Mean Platelet Volume 12.8 fL (9.5-12.2); Monocytes # (A) 0.24 10*3/uL (0.20-1.00); Monocytes % (A) 4.7 %; Neutrophils # (A) 4.71 10*3/uL (1.80-7.70); Neutrophils % (A) 92.7 %; RBC 2.48 10*6/uL (4.40-5.60); RDW 19.4 % (11.5-14.5); WBC 5.08 10*3/uL (4.50-10.00)
[2024-10-27 06:45] LABS: Platelet Count 53 10*3/uL (140-440)
[2024-10-27 06:47] LABS: African American GFR (CKD) 19 (>60 ml/min/1.73 sqM); Anion Gap 12 mmol/L; Blood Urea Nitrogen 97 mg/dL (9-20); Calcium 8.4 mg/dL (8.4-10.2); Carbon Dioxide 21 mmol/L (22-30); Chloride 105 mmol/L (98-107); Glucose 146 mg/dL (74-99); Non-African American GFR(CKD) 17 (>60 ml/min/1.73 sqM); Potassium 5.3 mmol/L (3.5-5.1); Sodium 138 mmol/L (137-145)
--- NOTE | 2024-10-27 07:22 | XR ---
EXAMINATION TYPE: XR chest 1V portable DATE OF EXAM: 10/27/2024 6:12 AM COMPARISON: 10/26/2024 CLINICAL INDICATION: Male, 84 years old with history of f/u fluid overload, TECHNIQUE: XR chest 1V portable views of the chest are obtained. FINDINGS: Demonstrated are scattered senescent parenchymal change. There is no evidence for focal infiltrate. Again noted is cardiomegaly with bilateral pleural effusions and pulmonary venous congestion without overt failure. Hilar and mediastinal structures are within normal limits. Degenerative changes are seen of the dorsal spine. IMPRESSION: 1. Overall stable chest [facility], , 10/27/2024 7:19 AM
[2024-10-27] MEDS: THIAMINE 100 MG TAB PO SCH (08:51)
[2024-10-27] MEDS: SODIUM BICARB 8.4% 50 ML SYR (1 MEQ/ML) IV ONE (09:33)
[2024-10-27 09:37] LABS: Allen Test Performed? Yes
[2024-10-27 09:38] LABS: ABG HCO3 22 mmol/L (21-25); ABG Oxygen Saturation 99.8 % (94-97); ABG PCO2 53 mmHg (35-45); ABG PH 7.24 (7.35-7.45); ABG PO2 146 mmHg (83-108); ABG TCO2 24 mmol/L (19-24)
--- NOTE | 2024-10-27 11:11 | P.PN ---
Subjective Progress Note Date: 10/27/24 Principal diagnosis: Hospital course: This is a 84-year-old male with a past medical history significant for nonobstructive CAD, severe aortic stenosis with previous TAVR, hypertension, hyperlipidemia, and atrial fibrillation. Patient follows in the office with Dr. Javier. We have been asked to see the patient in consultation for CHF. Patient examined at the bedside. Patient presented to the ER with a chief complaint shortness of breath. Patient's family is at the bedside and states that patient has been shaking a lot at home. They report he has been falling frequently and is very weak. They state for the past 2 to 3 days he has been having susanne lucinations at home where he has been seeing his in the house. DIAGNOSTICS: - EKG reveals atrial fibrillation with controlled ventricular rate. - Chest xray cardiomegaly, pulmonary vascular congestion and bilateral pleural effusions. - Laboratory data: WBC 2.76. Hemoglobin 9.2. Platelet count 58. D-dimer 2.19. Sodium 139. Potassium 6.0. BUN 84. Creatinine 2.23. Troponin 0.166. 0.157. 0.130. proBNP 2420. - Current home cardiac medications include Eliquis 5 mg twice a day, Lipitor 40 mg daily, losartan 100 mg daily, metoprolol succinate 37.5 mg daily, hydralazine 50 mg 3 times daily, hydrochlorothiazide 25 mg daily. - Most recent echocardiogram obtained in October 2022 revealed ejection fraction 55 to 60%, post TAVR with normally functioning bioprosthetic valve with peak gr adient 16 and mean gradient 11. Trace to mild aortic regurgitation. Mild TR. - Cardiac catheterization history: [address] Javier revealing codominant/right dominant system. 60% proximal RCA with heavily calcification and good size posterior descending artery branch that comes off from RCA. Left main has no significant disease and is very small. LAD has 30 to 40% narrowing. PLV branch it comes off of nondominant circumflex has 50% narrowing. No other significant disease in the rest of the circumflex. 10/26/24: Patient seen and examined at bedside today. BP 83/51, pulse rate 74 bpm. Labs today show WBC 4.57, hemoglobin 8.1, platelet count 57, sodium 135, potassium 5.6, creatinine 3.05, BUN 90. Abnormal creatinine ultrasound shows ascites, gallbladder wall thickening could be due to hypoalbuminemia, correlate for hepatic cirrhosis. Chest x-ray shows continued cardiomegaly with small effusions greater on the right, pulmonary venous congestion without overt failure. 10/27/24: Patient evaluated at bedside today. He was on BIPAP overnight at 15/5/50%. Patient was obtunded last night but is more active today morning. Heme onc evaluated the patient, stated thrombocytopenia likely related to ongoing alcohol abuse and cirrhosis, superimposed by CHF exacerbation and recommend patient can be continued on Eliquis as previously recommended for his atrial fibrillation as long plts are > 50,000. Blood cultures show no growth in 24 hours. Pulse 79 bpm, BP 119/64 WBC 5.08, globin 9.1, platelet count 53, potassium 5.3, BUN 97, creatinine 3.06 Chest Xray shows again noted is cardiomegaly with bilateral pleural effusion, venous congestion Echocardiogram shows EF 60 to 65%, moderate to severe right ventricular dilation, reduced left ventricular function, RVSP 51 with severe biatrial enlargement, mild paravalvular aortic regurgitation, severe tricuspid regurgitation, moderate pericardial effusion without tamponade physiology. Physical examination: VITAL SIGNS: Reviewed. GENERAL: Well-developed in no acute distress. HEENT: Head is normocephalic. Pupils are equal, round. Sclerae anicteric. Mucous membranes of the mouth are moist. Neck supple. No JVD or thyromegaly LUNGS: CTA bilateral, no wheezes, no rhonchi HEART: Irregular rate and rhythm. S1 and S2 heard. ABDOMEN: Soft. Nondistended. Nontender. EXTREMITIES: Normal range of motion. No clubbing or cyanosis. Peripheral pulses intact. No lower extremity edema Assessment: Acute hypoxic respiratory failure Pancytopenia Acute kidney injury Elevated troponins, flat, likely secondary to poor renal clearance, no evidence of myocardial injury or ischemia Generalized weakness with frequent falls, per family Hallucinations, per family History of severe aortic stenosis with previous TAVR, 2022 Nonobstructive coronary artery disease Persistent atrial fibrillation with controlled ventricular rate Hypertension Hyperlipidemia Plan: An acute coronary event has been ruled out Continue Eliquis 2.5 BID, Dose adjusted due to age and kidney function Resume home cardiac medications Transfuse for hgb <7 and for plts <50,000 Dictation was produced using [employer] software. please excuse any grammatical, word or spelling errors. Sarahi Randall MD PGY-1 IM I have seen and evaluated the patient today. Discussed with the resident and agree with the residents finding and plan as documented in the resident's note. Objective - Vital Signs Vital signs: Vital Signs Temp 96.5 F L 10/27/24 08:30 Pulse 79 10/27/24 09:15 Resp 15 10/27/24 09:15 BP 119/64 10/27/24 09:15 Pulse Ox 99 10/27/24 09:15 FiO2 50 10/27/24 08:30 Intake & Output 10/26/24 10/27/24 10/27/24 18:59 06:59 18:59 Intake Total 605.985 1764 300 Output Total 315 720 220 Balance 482.413 480 80 Weight 78.925 kg Intake: IV 740 1200 300 Sodium Chloride 0.9% 1, 740 1200 300 000 ml @ 10 mls/hr IV . Q24H [facility] Rx#:[id number] Intake, IV Titration 57.413 Amount Norepinephrine 4 mg In 27.413 Sodium Chloride 0.9% 250 ml @ 0.03 MCG/KG/MIN 9. 021 mls/hr IV .Q24H [facility] Rx#:[id number] Sodium Chloride 0.9% 1, 30 000 ml @ 20 mls/hr IV . Q24H [facility] Rx#:[id number] Output: Urine 315 720 220 Other: Voiding Method Indwelling Catheter Indwelling Catheter Indwelling Catheter - Labs CBC & Chem 7: 10/27/24 05:18 10/27/24 05:18 Labs: Abnormal Lab Results - Last 24 Hours (Table) 10/26/24 10/26/24 10/26/24 Range/Units 05:37 11:43 21:27 RBC (4.40-5.60) 10*6/uL Hgb (13.0-17.0) g/dL Hct (39.6-50.0) % MCV (80.0-97.0) fL MCH (27.0-32.0) pg MCHC (32.0-37.0) g/dL Plt Count (140-440) 10*3/uL MPV (9.5-12.2) fL Lymphocytes # (0.90-5.00) 10*3/uL Eosinophils # (0.04-0.35) 10*3/uL ABG pH (7.35-7.45) ABG pCO2 (35-45) mmHg ABG pO2 (83-108) mmHg ABG O2 Saturation (94-97) % Hemoglobin (13.0-17.5) gm/dL Potassium (3.5-5.1) mmol/L Carbon Dioxide (22-30) mmol/L BUN (9-20) mg/dL Creatinine (0.66-1.25) mg/dL Glucose (74-99) mg/dL POC Glucose (mg/dL) 157 H (70-110) mg/dL Ammonia 30 H (<30) umol/L Vitamin B12 1437.0 H (200.0-944.0) pg/mL 10/26/24 10/27/24 10/27/24 Range/Units 21:45 02:07 05:18 RBC 2.48 L (4.40-5.60) 10*6/uL Hgb 8.1 L (13.0-17.0) g/dL Hct 26.7 L (39.6-50.0) % MCV 107.7 H (80.0-97.0) fL MCH 32.7 H (27.0-32.0) pg MCHC 30.3 L (32.0-37.0) g/dL Plt Count 53 L (140-440) 10*3/uL MPV 12.8 H (9.5-12.2) fL Lymphocytes # 0.10 L (0.90-5.00) 10*3/uL Eosinophils # 0.00 L (0.04-0.35) 10*3/uL ABG pH 7.27 L 7.22 L (7.35-7.45) ABG pCO2 47 H 55 H (35-45) mmHg ABG pO2 58 L* 65 L (83-108) mmHg ABG O2 Saturation 91.1 L 92.4 L (94-97) % Hemoglobin 8.4 L 8.5 L (13.0-17.5) gm/dL Potassium (3.5-5.1) mmol/L Carbon Dioxide (22-30) mmol/L BUN (9-20) mg/dL Creatinine (0.66-1.25) mg/dL Glucose (74-99) mg/dL POC Glucose (mg/dL) (70-110) mg/dL Ammonia (<30) umol/L Vitamin B12 (200.0-944.0) pg/mL 10/27/24 10/27/24 Range/Units 05:18 09:23 RBC (4.40-5.60) 10*6/uL Hgb (13.0-17.0) g/dL Hct (39.6-50.0) % MCV (80.0-97.0) fL MCH (27.0-32.0) pg MCHC (32.0-37.0) g/dL Plt Count (140-440) 10*3/uL MPV (9.5-12.2) fL Lymphocytes # (0.90-5.00) 10*3/uL Eosinophils # (0.04-0.35) 10*3/uL ABG pH 7.24 L (7.35-7.45) ABG pCO2 53 H (35-45) mmHg ABG pO2 146 H (83-108) mmHg ABG O2 Saturation 99.8 H (94-97) % Hemoglobin (13.0-17.5) gm/dL Potassium 5.3 H (3.5-5.1) mmol/L Carbon Dioxide 21 L (22-30) mmol/L BUN 97 H (9-20) mg/dL Creatinine 3.26 H (0.66-1.25) mg/dL Glucose 146 H (74-99) mg/dL POC Glucose (mg/dL) (70-110) mg/dL Ammonia (<30) umol/L Vitamin B12 (200.0-944.0) pg/mL Microbiology - Last 24 Hours (Table) 10/25/24 08:12 Blood Culture - Preliminary Blood
--- NOTE | 2024-10-27 11:28 | P.PN ---
Subjective Patient is seen for follow-up for acute kidney injury and CHF. He is currently being diuresed. Urine output has improved with IV Lasix 80 mg. Serum creatinine at 3.2 today from 3.0 yesterday Potassium has improved to 5.3 with improved urine output. Maintained on nasal cannula. IV fluids now discontinued. Objective - Vital Signs Vital signs: Vital Signs Temp 96.5 F L 10/27/24 08:30 Pulse 70 10/27/24 11:00 Resp 16 10/27/24 11:00 BP 85/50 10/27/24 11:00 Pulse Ox 98 10/27/24 11:00 FiO2 50 10/27/24 08:30 Intake & Output 10/26/24 10/27/24 10/27/24 18:59 06:59 18:59 Intake Total 372.756 0275 340 Output Total 315 720 445 Balance 482.413 480 -105 Weight 78.925 kg Intake: IV 740 1200 340 Sodium Chloride 0.9% 1, 740 1200 340 000 ml @ 10 mls/hr IV . Q24H [facility] Rx#:[id number] Intake, IV Titration 57.413 Amount Norepinephrine 4 mg In 27.413 Sodium Chloride 0.9% 250 ml @ 0.03 MCG/KG/MIN 9. 021 mls/hr IV .Q24H [facility] Rx#:[id number] Sodium Chloride 0.9% 1, 30 000 ml @ 20 mls/hr IV . Q24H [facility] Rx#:[id number] Output: Urine 315 720 445 Other: Voiding Method Indwelling Catheter Indwelling Catheter Indwelling Catheter - Exam Patient is awake, comfortable, no acute distress Questions appropriately Examination of the heart S1 and S2 Examination of the lungs decreased breath sounds at the bases Abdomen is soft nontender Examination lower extremity shows edema 1+ bilaterally, chronic skin changes ARTISTIC DIRECTOR exam shows patient moving all 4 extremities. - Labs CBC & Chem 7: 10/27/24 05:18 10/27/24 05:18 Labs: Abnormal Lab Results - Last 24 Hours (Table) 10/26/24 10/26/24 10/26/24 Range/Units 05:37 11:43 21:27 RBC (4.40-5.60) 10*6/uL Hgb (13.0-17.0) g/dL Hct (39.6-50.0) % MCV (80.0-97.0) fL MCH (27.0-32.0) pg MCHC (32.0-37.0) g/dL Plt Count (140-440) 10*3/uL MPV (9.5-12.2) fL Lymphocytes # (0.90-5.00) 10*3/uL Eosinophils # (0.04-0.35) 10*3/uL ABG pH (7.35-7.45) ABG pCO2 (35-45) mmHg ABG pO2 (83-108) mmHg ABG O2 Saturation (94-97) % Hemoglobin (13.0-17.5) gm/dL Potassium (3.5-5.1) mmol/L Carbon Dioxide (22-30) mmol/L BUN (9-20) mg/dL Creatinine (0.66-1.25) mg/dL Glucose (74-99) mg/dL POC Glucose (mg/dL) 157 H (70-110) mg/dL Ammonia 30 H (<30) umol/L Vitamin B12 1437.0 H (200.0-944.0) pg/mL 10/26/24 10/27/24 10/27/24 Range/Units 21:45 02:07 05:18 RBC 2.48 L (4.40-5.60) 10*6/uL Hgb 8.1 L (13.0-17.0) g/dL Hct 26.7 L (39.6-50.0) % MCV 107.7 H (80.0-97.0) fL MCH 32.7 H (27.0-32.0) pg MCHC 30.3 L (32.0-37.0) g/dL Plt Count 53 L (140-440) 10*3/uL MPV 12.8 H (9.5-12.2) fL Lymphocytes # 0.10 L (0.90-5.00) 10*3/uL Eosinophils # 0.00 L (0.04-0.35) 10*3/uL ABG pH 7.27 L 7.22 L (7.35-7.45) ABG pCO2 47 H 55 H (35-45) mmHg ABG pO2 58 L* 65 L (83-108) mmHg ABG O2 Saturation 91.1 L 92.4 L (94-97) % Hemoglobin 8.4 L 8.5 L (13.0-17.5) gm/dL Potassium (3.5-5.1) mmol/L Carbon Dioxide (22-30) mmol/L BUN (9-20) mg/dL Creatinine (0.66-1.25) mg/dL Glucose (74-99) mg/dL POC Glucose (mg/dL) (70-110) mg/dL Ammonia (<30) umol/L Vitamin B12 (200.0-944.0) pg/mL 10/27/24 10/27/24 Range/Units 05:18 09:23 RBC (4.40-5.60) 10*6/uL Hgb (13.0-17.0) g/dL Hct (39.6-50.0) % MCV (80.0-97.0) fL MCH (27.0-32.0) pg MCHC (32.0-37.0) g/dL Plt Count (140-440) 10*3/uL MPV (9.5-12.2) fL Lymphocytes # (0.90-5.00) 10*3/uL Eosinophils # (0.04-0.35) 10*3/uL ABG pH 7.24 L (7.35-7.45) ABG pCO2 53 H (35-45) mmHg ABG pO2 146 H (83-108) mmHg ABG O2 Saturation 99.8 H (94-97) % Hemoglobin (13.0-17.5) gm/dL Potassium 5.3 H (3.5-5.1) mmol/L Carbon Dioxide 21 L (22-30) mmol/L BUN 97 H (9-20) mg/dL Creatinine 3.26 H (0.66-1.25) mg/dL Glucose 146 H (74-99) mg/dL POC Glucose (mg/dL) (70-110) mg/dL Ammonia (<30) umol/L Vitamin B12 (200.0-944.0) pg/mL Microbiology - Last 24 Hours (Table) 10/25/24 08:12 Blood Culture - Preliminary Blood Assessment and Plan Assessment: 1. Acute kidney injury, ATN from hypotension, oliguric with improving urine output. Status post IV fluids. Currently hypervolemic and being diuresed. Moderate pericardial effusion noted with no evidence of tamponade. 2. Mental status changes most likely metabolic encephalopathy. Serum ammonia was 30 3. History of significant alcohol intake on a regular basis with serum alcohol less than 10 on admission 4. Hyperkalemia associated with acute kidney injury, improved. Maintained on Lokelma, improved with improving urine output and loop diuretics 5. Moderate pericardial effusion with no evidence of tamponade Plan: I had scheduled dose of IV Lasix Continue with l midodrine Repeat labs in a.m.
--- NOTE | 2024-10-27 11:32 | P.PN ---
Subjective Progress Note Date: 10/27/24 Principal diagnosis: Acute hypoxic and hypercapnic respiratory failure secondary to acute congestive heart failure with preserved LV function and underlying COPD. Patient is an 85-year-old male with past medical history significant for COPD, heart failure, TAVR, hypertension, hyperlipidemia, alcohol abuse. Patient is hard of hearing and a poor historian. Reportedly, having episodes of hallucinations and tremors while at home. Per the ER note, presented on 10/24/2024, with a chief complaint of shortness of breath with associated lower extremity swelling. Initially, patient was placed on BiPAP. Workup in the ED including a chest x-ray demonstrating cardiomegaly, pulmonary vascular congestion, and small bilateral pleural effusions. NT proBNP was elevated at 2420. Remaining blood work including a CBC with a WBC count 1.9, hemoglobin 9.2, platelets 63,000. Most recent CMP from yesterday including a sodium 136, potassium 5.5, chloride 102, serum bicarb 20, BUN 90, creatinine 2.55, glucose 163. It appears patient sustained an acute kidney injury on top of chronic kidney disease. Also, his potassium was 6 millimoles per liter yesterday morning, received a potassium cocktail, most recently potassium is down to 5.5. Urinalysis unremarkable. EKG: Atrial fibrillation with controlled ventricular response, rate 72 bpm, no obvious acute ischemic changes. Serial troponins elevated at 0.166, 0.16, and 0.13 respectively. Patient initially was on a heparin infusion, cardiology has since discontinued the IV heparin. Eliquis has since been resumed. Patient does have history of valvular heart disease and transcatheter aortic valve replacement back performed in 2022. Most recent available echocardiogram from Oct, 2022 estimating a left ventricular ejection fraction of 55 to 60%, stable bioprosthetic valve, and suggesting mild pulmonary hypertension with RVSP of 46 mmHg. Patient was on a noninvasive BiPAP since early this morning. He was started on a Lasix infusion at 10 mg/h. Currently, the patient is being evaluated in room 259. He is awake and alert and on 2 L/min nasal cannula. No respiratory distress noted. Blood pressure has been marginally hypotensive, 92/38 mmHg. Heart rhythm appears atrial fibrillation with controlled ventricular response. His lower extremity swelling has improved per the patient. Patient denies any chest pain, heart palpitations, syncopal events, orthopnea. Admits occasional nonproductive cough. Denies infectious symptoms. Denies nausea, vomiting, diarrhea. Denies hematemesis, melena, hematochezia. States he did fall while drinking alcohol at home. Denies losing consciousness. No obvious signs of head trauma. Reports daily alcohol use, drinks 2-3 large glasses of whiskey mixed with coke per day. Unclear when his last drink was. Serum alcohol level was less than 10 on arrival. No immediate signs of alcohol withdrawal. Current vital signs: Temperature 97.6 F, heart rate 58 bpm, blood pressure 92/38 mmHg, SpO2 recorded at 92% on 2 L/min nasal cannula. Patient was seen today on 10/27/2024, patient became quite obtunded last night, with worsening hypercapnia and worsening hypoxia. Patient developed a combined respiratory and metabolic acidosis, placed on BiPAP overnight 15/5/60%, and considering his obtundation, patient was close to be intubated and mechanically ventilated. Patient did receive Ativan 2 mg orally in PM yesterday and that may have contributed to his worsening hypercapnia/obtundation. This morning when I rounded on this patient is now on 4 L nasal cannula, ABG was done showed a pO2 of 146 pCO2 53 pH of 7.24 hence I recommended cutting down his FiO2 down to 2 L from 4 L I gave the patient 1 amp of bicarb and I cut down his Ativan to 1 mg every 4 hours only. Patient continues to have evidence of congestive heart failure echocardiogram showed good LV function and moderate-sized pericardial effusion with no evidence of tamponade. Lasix 80 mg IM was given this morning. IV fluid was 100 cc an hour I cut it down to KVO. Urine output is about 30 to 70 cc/h patient is off Levophed since 4 PM yesterday. WBC count today 5.0 hemoglobin 8.1, basic metabolic profile showed relatively normal electrolytes BUN is up to 97 creatinine up to 3.26, patient is being followed by nephrology. Objective - Vital Signs Vital signs: Vital Signs Temp 96.5 F L 10/27/24 08:30 Pulse 70 10/27/24 11:00 Resp 16 10/27/24 11:00 BP 85/50 10/27/24 11:00 Pulse Ox 98 10/27/24 11:00 FiO2 50 10/27/24 08:30 Intake & Output 10/26/24 10/27/24 10/27/24 18:59 06:59 18:59 Intake Total 173.699 7241 340 Output Total 315 720 445 Balance 482.413 480 -105 Weight 78.925 kg Intake: IV 740 1200 340 Sodium Chloride 0.9% 1, 740 1200 340 000 ml @ 10 mls/hr IV . Q24H [facility] Rx#:[id number] Intake, IV Titration 57.413 Amount Norepinephrine 4 mg In 27.413 Sodium Chloride 0.9% 250 ml @ 0.03 MCG/KG/MIN 9. 021 mls/hr IV .Q24H [facility] Rx#:[id number] Sodium Chloride 0.9% 1, 30 000 ml @ 20 mls/hr IV . Q24H [facility] Rx#:[id number] Output: Urine 315 720 445 Other: Voiding Method Indwelling Catheter Indwelling Catheter Indwelling Catheter - Exam GENERAL EXAM: Revealed 84-year-old white male on 2 L nasal cannula, in no distress, more awake today compared to last night. Patient was on BiPAP until early this morning. HEAD: Normocephalic and atraumatic EYES: Normal reaction of pupils, equal size. NOSE: Clear with pink turbinates. THROAT: No erythema or exudates. NECK: No masses, no JVD. CHEST: No chest wall deformity. LUNGS: Diminished breath sound bilaterally no crackles rhonchi or wheezes CVS: S1 and S2 normal with soft systolic, irregular rhythm. No other extra heart sounds ABDOMEN: No hepatosplenomegaly, active bowel sounds, no guarding or rigidity. Positive ascites SKIN: No rashes CENTRAL NERVOUS SYSTEM: No focal deficits, tone is normal in all 4 extremities. EXTREMITIES: T 1-2+ bipedal edema - Labs CBC & Chem 7: 10/27/24 05:18 10/27/24 05:18 Labs: Abnormal Lab Results - Last 24 Hours (Table) 10/26/24 10/26/24 10/26/24 Range/Units 05:37 11:43 21:27 RBC (4.40-5.60) 10*6/uL Hgb (13.0-17.0) g/dL Hct (39.6-50.0) % MCV (80.0-97.0) fL MCH (27.0-32.0) pg MCHC (32.0-37.0) g/dL Plt Count (140-440) 10*3/uL MPV (9.5-12.2) fL Lymphocytes # (0.90-5.00) 10*3/uL Eosinophils # (0.04-0.35) 10*3/uL ABG pH (7.35-7.45) ABG pCO2 (35-45) mmHg ABG pO2 (83-108) mmHg ABG O2 Saturation (94-97) % Hemoglobin (13.0-17.5) gm/dL Potassium (3.5-5.1) mmol/L Carbon Dioxide (22-30) mmol/L BUN (9-20) mg/dL Creatinine (0.66-1.25) mg/dL Glucose (74-99) mg/dL POC Glucose (mg/dL) 157 H (70-110) mg/dL Ammonia 30 H (<30) umol/L Vitamin B12 1437.0 H (200.0-944.0) pg/mL 10/26/24 10/27/24 10/27/24 Range/Units 21:45 02:07 05:18 RBC 2.48 L (4.40-5.60) 10*6/uL Hgb 8.1 L (13.0-17.0) g/dL Hct 26.7 L (39.6-50.0) % MCV 107.7 H (80.0-97.0) fL MCH 32.7 H (27.0-32.0) pg MCHC 30.3 L (32.0-37.0) g/dL Plt Count 53 L (140-440) 10*3/uL MPV 12.8 H (9.5-12.2) fL Lymphocytes # 0.10 L (0.90-5.00) 10*3/uL Eosinophils # 0.00 L (0.04-0.35) 10*3/uL ABG pH 7.27 L 7.22 L (7.35-7.45) ABG pCO2 47 H 55 H (35-45) mmHg ABG pO2 58 L* 65 L (83-108) mmHg ABG O2 Saturation 91.1 L 92.4 L (94-97) % Hemoglobin 8.4 L 8.5 L (13.0-17.5) gm/dL Potassium (3.5-5.1) mmol/L Carbon Dioxide (22-30) mmol/L BUN (9-20) mg/dL Creatinine (0.66-1.25) mg/dL Glucose (74-99) mg/dL POC Glucose (mg/dL) (70-110) mg/dL Ammonia (<30) umol/L Vitamin B12 (200.0-944.0) pg/mL 10/27/24 10/27/24 Range/Units 05:18 09:23 RBC (4.40-5.60) 10*6/uL Hgb (13.0-17.0) g/dL Hct (39.6-50.0) % MCV (80.0-97.0) fL MCH (27.0-32.0) pg MCHC (32.0-37.0) g/dL Plt Count (140-440) 10*3/uL MPV (9.5-12.2) fL Lymphocytes # (0.90-5.00) 10*3/uL Eosinophils # (0.04-0.35) 10*3/uL ABG pH 7.24 L (7.35-7.45) ABG pCO2 53 H (35-45) mmHg ABG pO2 146 H (83-108) mmHg ABG O2 Saturation 99.8 H (94-97) % Hemoglobin (13.0-17.5) gm/dL Potassium 5.3 H (3.5-5.1) mmol/L Carbon Dioxide 21 L (22-30) mmol/L BUN 97 H (9-20) mg/dL Creatinine 3.26 H (0.66-1.25) mg/dL Glucose 146 H (74-99) mg/dL POC Glucose (mg/dL) (70-110) mg/dL Ammonia (<30) umol/L Vitamin B12 (200.0-944.0) pg/mL Microbiology - Last 24 Hours (Table) 10/25/24 08:12 Blood Culture - Preliminary Blood Assessment and Plan Assessment: Impression: Acute CHF exacerbation, with preserved ejection fraction Chronic obstructive pulmonary disease, inactive at present Acute hypoxemic and hypercapnic respiratory failure, multifactorial related to congestive heart failure, underlying COPD, and Ativan that was given for alcohol withdrawal Atrial fibrillation with controlled ventricular response, anticoagulated on Eliquis History of valvular heart disease, status post transcatheter aortic valve replacement in 2022 Elevated troponins History of hypertension History of hyperlipidemia Acute kidney injury, on top of chronic kidney disease Severe hyperkalemia, mostly secondary to combined metabolic and respiratory acidosis Pancytopenia History of alcohol abuse, serum alcohol less than 10 on arrival Hard of hearing Former tobacco smoker Recommendation: Continue diuretics Continue oxygen and titrate accordingly Continue Ativan at a lower dose Continue CIWA protocol Continue updrafts Pressors if felt necessary for low blood pressure patient required few hours of norepinephrine yesterday. Echocardiogram report was noted patient has good LV function but he does have moderate pericardial effusion Continue methylprednisolone Continue midodrine Continue GI and DVT prophylaxis IV bicarb was given x 1 for metabolic acidosis Will continue to follow Time with Patient: Less than 30
[2024-10-27 11:41] LABS: Glucose,Whole Blood 170 mg/dL (70-110)
[2024-10-27 18:05] LABS: Glucose,Whole Blood 174 mg/dL (70-110)
--- NOTE | 2024-10-27 18:16 | P.PN ---
Progress Note - Text Progress Note Date: 10/27/24 Chief Complaint: Multiple complaints This is a 84-year-old patient who follows with Dr. Jacobs. Chronic medical conditions include COPD, decreased hearing, hyperlipidemia hypertension previous [place] enlarged prostate gout uses a cane/walker. Drinks 2-3 mixed drinks a day. History is obtained by patient's son Romario at the bedside and his . Patient lives with his other son Sean. Of recent patient's been having falls. Hallucinations seeing things. Unsteady. Shaking. Appetite is okay. Patient is hard of hearing but able to answer simple questions. They cannot tell why he is here. No fever or chills reported. Patient has a tickle in the throat and intermittently keeps coughing. Some shortness of breath October 26: Saw the patient this morning. Last night patient was hypotensive, and started on Lasix drip. Moved to the ICU. Not much urine output. Tremors better. More awake. Started on Levophed drip. Off Lasix. On Ventimask 2D echo showed EF of 60 to 65%. Severe right-sided dilatation. Moderate pericardial effusion. Left pleural effusion cardiology, nephrology, second miller following October 27: ICU: Levophed was discontinued yesterday late afternoon. Did receive IV fluids. Because of hypotension. Today received IV Lasix. Good urine output. More awake. More settled. No further tremors. Down to 2 L nasal cannula. failed bedside swallow eval. Will do again will be evaluated tomorrow. Active Medications Hydrocodone Bitart/Acetaminophen (Hydrocodone/Apap 5-325mg 1 Each Tab) 1 each PO Q8H PRN PRN Reason: Pain Last Admin: 10/25/24 14:10 Dose: 1 each Albuterol/Ipratropium (Ipratropium-Albuterol 3 Ml Neb) 3 ml INHALATION RT-QID [facility] Last Admin: 10/27/24 15:26 Dose: 3 ml Allopurinol (Allopurinol 100 Mg Tab) 100 mg PO DAILY [facility] Last Admin: 10/27/24 08:51 Dose: 100 mg Apixaban (Apixaban 2.5 Mg Tablet) 2.5 mg PO BID [facility]; Protocol Last Admin: 10/27/24 08:49 Dose: 2.5 mg Atorvastatin Calcium (Atorvastatin 40 Mg Tab) 40 mg PO DAILY [facility] Last Admin: 10/27/24 08:49 Dose: 40 mg Calcium Carbonate/Glycine (Calcium Carbonate 500 Mg Chewable) 500 mg PO BID [facility] Last Admin: 10/27/24 08:51 Dose: 500 mg Diclofenac Sodium (Diclofenac Sodium Gel 100 Gm Tube) 2 gm TOPICAL Q8H PRN; Protocol PRN Reason: Pain Ferrous Sulfate (Ferrous Sulfate 325 Mg Tab) 325 mg PO HS [facility] Last Admin: 10/26/24 21:36 Dose: Not Given Furosemide (Furosemide 10 Mg/Ml 10 Ml Vial) 80 mg IV Q12HR [facility] Gabapentin (Gabapentin 100 Mg Cap) 200 mg PO HS [facility] Last Admin: 10/26/24 21:36 Dose: Not Given Sodium Chloride (Saline 0.9%) 1,000 mls @ 10 mls/hr IV .Q24H [facility] Last Admin: 10/27/24 02:53 Dose: 100 mls/hr Norepinephrine Bitartrate 4 mg (/ Sodium Chloride) 254 mls @ 9.021 mls/hr IV .Q24H [facility]; Protocol Last Titration: 10/26/24 15:02 Dose: 0 mcg/kg/min, 0 mls/hr Lorazepam (Lorazepam 1 Mg Tab) 1 mg PO Q4HR PRN PRN Reason: Ciwa 6 To 7 Methylprednisolone Sodium Succinate (Methylprednisolone Sod Succi 40 Mg/Ml 1 Ml Vial) 40 mg IV Q12HR [facility] Last Admin: 10/27/24 08:49 Dose: 40 mg Metoprolol Succinate (Metoprolol Succinate (Er) 25 Mg Tab.Er.24h) 37.5 mg PO DAILY [facility] Last Admin: 10/27/24 08:48 Dose: 37.5 mg Midodrine (Midodrine 5 Mg Tab) 5 mg PO AC-BID [facility] Last Admin: 10/27/24 06:38 Dose: Not Given Multivitamins (Multivitamins, Thera 1 Each Tab) 1 each PO DAILY [facility] Last Admin: 10/27/24 08:51 Dose: 1 each Pantoprazole Sodium (Pantoprazole 40 Mg Tablet) 40 mg PO DAILY [facility] Last Admin: 10/27/24 08:51 Dose: 40 mg Tamsulosin HCl (Tamsulosin 0.4 Mg Cap.Er.24h) 0.8 mg PO HS [facility] Last Admin: 10/26/24 21:36 Dose: Not Given Thiamine HCl (Thiamine 100 Mg Tab) 100 mg PO DAILY [facility] Last Admin: 10/27/24 08:51 Dose: 100 mg Social history: Patient has least 2-3 mixed drinks daily. Stop smoking at the age of 42. Half a pack a day. Does use a cane/walker. Lives with his son Sean. Physical examination: VITAL SIGNS: 97.6, 67, 96 x 63, 100% 2 L GENERAL: BMI 29, laying in bed, awake though tired EYES: Pupils equal. Conjunctiva ramya l. HEENT: External appearance of nose and ears normal, oral cavity grossly normal. NECK: JVD unable to assess; masses not palpable. HEART: First and second heart sounds are normal; edema present. LUNGS: Respiratory rate increased, decreased breath sounds. ABDOMEN: Soft, nontender, liver spleen not palpable, no masses palpable. PSYCH: Answering simple questions MUSCULOSKELETAL:No Clubbing/cyanosis;muscles-grossly intact. OA and many joint NEUROLOGICAL: Cranial nerves grossly intact; no facial asymmetry, no jerking INVESTIGATIONS, reviewed in the clinical context: October 27: White count 5.0 hemoglobin 8.1 platelets 53. ABG: pH 7.2 [id number] PO2 146 potassium 5.3 BUN 97 creatinine 3.26 Renal ultrasound: Possible hepatic cirrhosis. Ascites. 2D echo: EF 60 to 65%. Severe right ventricle dilatation. Moderate pulmonary hypertension. Normal functioning bioprosthetic arctic valve. Without stenosis. Severe tricuspid regurgitation. Moderate pericardial effusion left pleural effusion October 26: White count 4.5 hemoglobin 8.1 platelets 57 sodium 135 potassium 5.6 BUN 90 creatinine 3.05 October 25: White count 1.9 hemoglobin 9.2 platelets 63 sodium 139 potassium 6 BUN 84 creatinine 2.23 October 24: White count 2.7 hemoglobin 9.2 platelets 58. Sodium 139 potassium 5.3 BUN 88 creatinine 2.21 Troponin I, 0.166, 0.157, 0.130 Serum alcohol less than 10 EKG tracing personally reviewed by me-atrial fibrillation. Chest x-ray film personally reviewed by me-cardiomegaly, with pulm edema Prior labs: November 14, 2023: Creatinine 1.5 2D echo 2022: EF 50 to 60%. Moderate pulmonary hypertension. Normal functioning bioprosthetic valve. Assessment plan: - Acute congestive heart failure exacerbation probably diastolic dysfunction Strict I's and O's. Fluid restriction 2000 cc a day. Lasix IV 80 mg every 12 - Bioprosthetic valve, aortic - Acute hypoxic, hypercapnic respiratory failure: Much improved Was on Ventimask. Now down to 2 L - Acute delirium, metabolic encephalopathy likely from worsening kidney function. And hypoxia: Much better Supplemental oxygen. 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 Failed bedside swallowing. Being followed by speech therapy. Will be reevaluated tomorrow - Acute kidney injury likely ATN from cardiorenal. Syndrome.: Worsening Renal ultrasound. Noted Lasix 80 mg IV every 12 Nephrology following - Chronic kidney disease, with creatinine being 1.5 in October 2023. Stage III likely nephrosclerosis - Troponinemia. In the setting of worsening renal failure. No chest pain reported. Doubt ACS Cardiology following - Hyperkalemia. Kayexalate. Renal diet. - Tremors twitching reported by family. Likely from patient being on gabapentin in the setting of worsening renal function: Resolved Neurontin was initially held and dose cut back - Pancytopenia, could be from underlying liver disease. Given that patient been drinking alcohol for some time. Follow CBC - Persistent atrial fibrillation. Rate controlled. Eliquis. -Alcohol use disorder. Leading to cirrhosis - Chronic hard of hearing, does not have hearing aids - Chronic gout Allopurinol - GERD PPI - BPH Flomax - Primary osteoarthritis multiple joints Diclofenac sodium topical - Full code - Medical power of corporate attorney, son Andres On Lasix 80 mg IV every 12. Worsening renal function. Prognosis guarded Past Medical History Past Medical History: COPD, CVA/TIA, Hearing Disorder / Deafness, Hyperlipidemia, Hypertension, Myocardial Infarction ([place]), Prostate Disorder Additional Past Medical History / Comment(s): Aortic Valve stenosis,Heart murmur, possible CVA or heart attack-pt not sure, back pain, gout, uses cane, hard of hearing-no hearing aides. Last Myocardial Infarction Date:: 2020? History of Any Multi-Drug Resistant Organisms: None Reported Past Surgical History: Appendectomy, Heart Catheterization, Orthopedic Surgery Additional Past Surgical History / Comment(s): Reverse shoulder, right toe surgery, left hand ring finger surgery, colonoscopy, JUAN PABLO. Past Anesthesia/Blood Transfusion Reactions: No Reported Reaction Additional Past Anesthesia/Blood Transfusion Reaction / Comment(s): No hx blood transfusion. Past Psychological History: No Psychological Hx Reported Smoking Status: Former smoker Past Alcohol Use History: Daily Past Drug Use History: None Reported
[2024-10-27] MEDS: FUROSEMIDE 10 MG/ML 10 ML VIAL IV SCH (20:24)
[2024-10-28 05:20] LABS: HCT 27.1 % (39.6-50.0); HGB 8.6 g/dL (13.0-17.0); Lymphocytes # (A) 0.07 10*3/uL (0.90-5.00); Lymphocytes % (A) 1.6 %; MCH 33.3 pg (27.0-32.0); MCHC 31.7 g/dL (32.0-37.0); Mean Platelet Volume 12.3 fL (9.5-12.2); Monocytes # (A) 0.18 10*3/uL (0.20-1.00); Monocytes % (A) 4.1 %; Neutrophils # (A) 4.14 10*3/uL (1.80-7.70); Neutrophils % (A) 93.8 %; RBC 2.58 10*6/uL (4.40-5.60); RDW 19.4 % (11.5-14.5); WBC 4.41 10*3/uL (4.50-10.00)
[2024-10-28 05:26] LABS: African American GFR (CKD) 24 (>60 ml/min/1.73 sqM); Anion Gap 10 mmol/L; Blood Urea Nitrogen 94 mg/dL (9-20); Calcium 8.6 mg/dL (8.4-10.2); Carbon Dioxide 25 mmol/L (22-30); Chloride 104 mmol/L (98-107); Glucose 141 mg/dL (74-99); Non-African American GFR(CKD) 20 (>60 ml/min/1.73 sqM); Potassium 4.7 mmol/L (3.5-5.1); Sodium 139 mmol/L (137-145)
[2024-10-28 05:30] LABS: Platelet Count 60 10*3/uL (140-440)
--- NOTE | 2024-10-28 07:36 | XR ---
EXAMINATION TYPE: XR chest 1V portable DATE OF EXAM: 10/28/2024 5:40 AM COMPARISON: 10/27/2024 CLINICAL INDICATION: Male, 84 years old with history of CHF; pulmonary edema f/u, TECHNIQUE: XR chest 1V portable views of the chest are obtained. FINDINGS: Demonstrated are scattered senescent parenchymal change. Again noted is cardiomegaly with bilateral pleural effusions and pulmonary venous congestion without overt failure. Hilar and mediastinal structures are within normal limits. Degenerative changes are seen of the dorsal spine. IMPRESSION: 1. Again noted is cardiomegaly with bilateral pleural effusions and pulmonary venous congestion with out overt failure. [facility], , 10/28/2024 7:33 AM
--- NOTE | 2024-10-28 11:11 | P.PN ---
Subjective Progress Note Date: 10/28/24 Principal diagnosis: Hospital course: This is a 84-year-old male with a past medical history significant for nonobstructive CAD, severe aortic stenosis with previous TAVR, hypertension, hyperlipidemia, and atrial fibrillation. Patient follows in the office with Dr. Javier. We have been asked to see the patient in consultation for CHF. Patient examined at the bedside. Patient presented to the ER with a chief complaint shortness of breath. Patient's family is at the bedside and states that patient has been shaking a lot at home. They report he has been falling frequently and is very weak. They state for the past 2 to 3 days he has been having susanne lucinations at home where he has been seeing his in the house. DIAGNOSTICS: - EKG reveals atrial fibrillation with controlled ventricular rate. - Chest xray cardiomegaly, pulmonary vascular congestion and bilateral pleural effusions. - Laboratory data: WBC 2.76. Hemoglobin 9.2. Platelet count 58. D-dimer 2.19. Sodium 139. Potassium 6.0. BUN 84. Creatinine 2.23. Troponin 0.166. 0.157. 0.130. proBNP 2420. - Current home cardiac medications include Eliquis 5 mg twice a day, Lipitor 40 mg daily, losartan 100 mg daily, metoprolol succinate 37.5 mg daily, hydralazine 50 mg 3 times daily, hydrochlorothiazide 25 mg daily. - Most recent echocardiogram obtained in October 2022 revealed ejection fraction 55 to 60%, post TAVR with normally functioning bioprosthetic valve with peak gr adient 16 and mean gradient 11. Trace to mild aortic regurgitation. Mild TR. - Cardiac catheterization history: [address] Javier revealing codominant/right dominant system. 60% proximal RCA with heavily calcification and good size posterior descending artery branch that comes off from RCA. Left main has no significant disease and is very small. LAD has 30 to 40% narrowing. PLV branch it comes off of nondominant circumflex has 50% narrowing. No other significant disease in the rest of the circumflex. 10/26/24: Patient seen and examined at bedside today. BP 83/51, pulse rate 74 bpm. Labs today show WBC 4.57, hemoglobin 8.1, platelet count 57, sodium 135, potassium 5.6, creatinine 3.05, BUN 90. Abnormal creatinine ultrasound shows ascites, gallbladder wall thickening could be due to hypoalbuminemia, correlate for hepatic cirrhosis. Chest x-ray shows continued cardiomegaly with small effusions greater on the right, pulmonary venous congestion without overt failure. 10/27/24: Patient evaluated at bedside today. He was on BIPAP overnight at 15/5/50%. Patient was obtunded last night but is more active today morning. Heme onc evaluated the patient, stated thrombocytopenia likely related to ongoing alcohol abuse and cirrhosis, superimposed by CHF exacerbation and recommend patient can be continued on Eliquis as previously recommended for his atrial fibrillation as long plts are > 50,000. Blood cultures show no growth in 24 hours. Pulse 79 bpm, BP 119/64 WBC 5.08, globin 9.1, platelet count 53, potassium 5.3, BUN 97, creatinine 3.06 Chest Xray shows again noted is cardiomegaly with bilateral pleural effusion, venous congestion Echocardiogram shows EF 60 to 65%, moderate to severe right ventricular dilation, reduced left ventricular function, RVSP 51 with severe biatrial enlargement, mild paravalvular aortic regurgitation, severe tricuspid regurgitation, moderate pericardial effusion without tamponade physiology. 10/28/24: Patient seen and examined at bedside today. Pulse 72 bpm, BP 119/72 WBC 4.41, Hb 8.6, Plt 60, BUN 94, creatinine 2.77 Blood culture shows no growth after 48 hours Chest Xray shows cardiomegaly and pulmonary venous congestion Physical examination: VITAL SIGNS: Reviewed. GENERAL: Well-developed in no acute distress. HEENT: Head is normocephalic. Pupils are equal, round. Sclerae anicteric. Mucous membranes of the mouth are moist. Neck supple. No JVD or thyromegaly LUNGS: CTA bilateral, no wheezes, no rhonchi HEART: Irregular rate and rhythm. S1 and S2 heard. ABDOMEN: Soft. Nondistended. Nontender. EXTREMITIES: Normal range of motion. No clubbing or cyanosis. Peripheral puls es intact. No lower extremity edema Assessment: Acute hypoxic respiratory failure Pancytopenia Acute kidney injury Elevated troponins, flat, likely secondary to poor renal clearance, no evidence of myocardial injury or ischemia Generalized weakness with frequent falls, per family Hallucinations, per family History of severe aortic stenosis with previous TAVR, 2022 Nonobstructive coronary artery disease Persistent atrial fibrillation with controlled ventricular rate Hypertension Hyperlipidemia Plan: An acute coronary event has been ruled out Continue Eliquis 2.5 BID, Dose adjusted due to age and kidney function Patient receiving Lasix 80 mg IV Q12HR and Midodrine 5 mg PO TID, Solumedrol 40mg Q12HR Continue home cardiac medications Transfuse for hgb <7 and for plts <50,000 Dictation was produced using [employer] dictation software. please excuse any grammatical, word or spelling errors. Sarahi Randall MD PGY-1 IM I have seen and evaluated the patient today. Discussed with the resident and agree with the residents finding and plan as documented in the resident's note. Objective - Vital Signs Vital signs: Vital Signs Temp 97.8 F 10/28/24 04:00 Pulse 72 10/28/24 08:22 Resp 12 10/28/24 07:00 BP 119/72 10/28/24 07:00 Pulse Ox 99 10/28/24 08:10 FiO2 50 10/27/24 08:30 Intake & Output 10/27/24 10/28/24 10/28/24 18:59 06:59 18:59 Intake Total 480 240 20 Output Total 1270 2035 120 Balance -790 -1795 -100 Intake: IV 480 240 20 Sodium Chloride 0.9% 1, 480 240 20 000 ml @ 10 mls/hr IV . Q24H [facility] Rx#:[id number] Output: Urine 1270 2035 120 Other: Voiding Method Indwelling Catheter Indwelling Catheter - Labs CBC & Chem 7: 10/28/24 04:07 10/28/24 04:07 Labs: Abnormal Lab Results - Last 24 Hours (Table) 10/26/24 10/27/24 10/27/24 Range/Units 12:29 09:23 11:38 WBC (4.50-10.00) 10*3/uL RBC (4.40-5.60) 10*6/uL Hgb (13.0-17.0) g/dL Hct (39.6-50.0) % MCV (80.0-97.0) fL MCH (27.0-32.0) pg MCHC (32.0-37.0) g/dL Plt Count (140-440) 10*3/uL MPV (9.5-12.2) fL Lymphocytes # (0.90-5.00) 10*3/uL Monocytes # (0.20-1.00) 10*3/uL Eosinophils # (0.04-0.35) 10*3/uL ABG pH 7.24 L (7.35-7.45) ABG pCO2 53 H (35-45) mmHg ABG pO2 146 H (83-108) mmHg ABG O2 Saturation 99.8 H (94-97) % BUN (9-20) mg/dL Creatinine (0.66-1.25) mg/dL Glucose (74-99) mg/dL POC Glucose (mg/dL) 170 H (70-110) mg/dL RBC Folate 969 H (280 - 791) ng/mL 10/27/24 10/28/24 10/28/24 Range/Units 18:04 04:07 04:07 WBC 4.41 L (4.50-10.00) 10*3/uL RBC 2.58 L (4.40-5.60) 10*6/uL Hgb 8.6 L (13.0-17.0) g/dL Hct 27.1 L (39.6-50.0) % MCV 105.0 H (80.0-97.0) fL MCH 33.3 H (27.0-32.0) pg MCHC 31.7 L (32.0-37.0) g/dL Plt Count 60 L (140-440) 10*3/uL MPV 12.3 H (9.5-12.2) fL Lymphocytes # 0.07 L (0.90-5.00) 10*3/uL Monocytes # 0.18 L (0.20-1.00) 10*3/uL Eosinophils # 0.00 L (0.04-0.35) 10*3/uL ABG pH (7.35-7.45) ABG pCO2 (35-45) mmHg ABG pO2 (83-108) mmHg ABG O2 Saturation (94-97) % BUN 94 H (9-20) mg/dL Creatinine 2.77 H (0.66-1.25) mg/dL Glucose 141 H (74-99) mg/dL POC Glucose (mg/dL) 174 H (70-110) mg/dL RBC Folate (280 - 791) ng/mL Microbiology - Last 24 Hours (Table) 10/25/24 08:12 Blood Culture - Preliminary Blood
--- NOTE | 2024-10-28 11:47 | P.PN ---
Subjective Patient is seen for follow-up for acute kidney injury and CHF. He is currently being diuresed. Urine output has improved along with improvement in renal function as well. Serum creatinine down to 2.7 today Potassium is 4.7. Maintained on nasal cannula. Objective - Vital Signs Vital signs: Vital Signs Temp 97.9 F 10/28/24 08:00 Pulse 76 10/28/24 11:18 Resp 17 10/28/24 08:00 BP 119/75 10/28/24 08:00 Pulse Ox 99 10/28/24 08:10 FiO2 50 10/27/24 08:30 Intake & Output 10/27/24 10/28/24 10/28/24 18:59 06:59 18:59 Intake Total 480 240 40 Output Total 1270 2035 320 Balance -790 -7895 -280 Intake: IV 480 240 40 Sodium Chloride 0.9% 1, 480 240 40 000 ml @ 10 mls/hr IV . Q24H [facility] Rx#:[id number] Output: Urine 1270 2035 320 Other: Voiding Method Indwelling Catheter Indwelling Catheter Indwelling Catheter - Exam Patient is awake, comfortable, no acute distress Questions appropriately Examination of the heart S1 and S2 Examination of the lungs decreased breath sounds at the bases Abdomen is soft nontender Examination lower extremity shows edema 1+ bilaterally, chronic skin changes [employer] exam shows patient moving all 4 extremities. - Labs CBC & Chem 7: 10/28/24 04:07 10/28/24 04:07 Labs: Abnormal Lab Results - Last 24 Hours (Table) 10/26/24 10/27/24 10/28/24 Range/Units 12:29 18:04 04:07 WBC 4.41 L (4.50-10.00) 10*3/uL RBC 2.58 L (4.40-5.60) 10*6/uL Hgb 8.6 L (13.0-17.0) g/dL Hct 27.1 L (39.6-50.0) % MCV 105.0 H (80.0-97.0) fL MCH 33.3 H (27.0-32.0) pg MCHC 31.7 L (32.0-37.0) g/dL Plt Count 60 L (140-440) 10*3/uL MPV 12.3 H (9.5-12.2) fL Lymphocytes # 0.07 L (0.90-5.00) 10*3/uL Monocytes # 0.18 L (0.20-1.00) 10*3/uL Eosinophils # 0.00 L (0.04-0.35) 10*3/uL BUN (9-20) mg/dL Creatinine (0.66-1.25) mg/dL Glucose (74-99) mg/dL POC Glucose (mg/dL) 174 H (70-110) mg/dL RBC Folate 969 H (280 - 791) ng/mL 10/28/24 Range/Units 04:07 WBC (4.50-10.00) 10*3/uL RBC (4.40-5.60) 10*6/uL Hgb (13.0-17.0) g/dL Hct (39.6-50.0) % MCV (80.0-97.0) fL MCH (27.0-32.0) pg MCHC (32.0-37.0) g/dL Plt Count (140-440) 10*3/uL MPV (9.5-12.2) fL Lymphocytes # (0.90-5.00) 10*3/uL Monocytes # (0.20-1.00) 10*3/uL Eosinophils # (0.04-0.35) 10*3/uL BUN 94 H (9-20) mg/dL Creatinine 2.77 H (0.66-1.25) mg/dL Glucose 141 H (74-99) mg/dL POC Glucose (mg/dL) (70-110) mg/dL RBC Folate (280 - 791) ng/mL Microbiology - Last 24 Hours (Table) 10/25/24 08:12 Blood Culture - Preliminary Blood Assessment and Plan Assessment: 1. Acute kidney injury, ATN from hypotension, oliguric with improving urine output. Status post IV fluids. Currently hypervolemic and being diuresed. Moderate pericardial effusion noted with no evidence of tamponade. 2. Mental status changes most likely metabolic encephalopathy. Serum ammonia was 30. Mentation improved significantly. 3. History of significant alcohol intake on a regular basis with serum alcohol less than 10 on admission 4. Hyperkalemia associated with acute kidney injury, improved. Maintained on Lokelma, improved with improving urine output and loop diuretics 5. Moderate pericardial effusion with no evidence of tamponade Plan: Continue with current dose of IV Lasix Continue with midodrine Repeat labs in a.m.
--- NOTE | 2024-10-28 12:27 | P.PN ---
Subjective Progress Note Date: 10/28/24 Principal diagnosis: Acute hypoxic and hypercapnic respiratory failure secondary to acute congestive heart failure with preserved LV function and underlying COPD. Patient is an 85-year-old male with past medical history significant for COPD, heart failure, TAVR, hypertension, hyperlipidemia, alcohol abuse. Patient is hard of hearing and a poor historian. Reportedly, having episodes of hallucinations and tremors while at home. Per the ER note, presented on 10/24/2024, with a chief complaint of shortness of breath with associated lower extremity swelling. Initially, patient was placed on BiPAP. Workup in the ED including a chest x-ray demonstrating cardiomegaly, pulmonary vascular congestion, and small bilateral pleural effusions. NT proBNP was elevated at 2420. Remaining blood work including a CBC with a WBC count 1.9, hemoglobin 9.2, platelets 63,000. Most recent CMP from yesterday including a sodium 136, potassium 5.5, chloride 102, serum bicarb 20, BUN 90, creatinine 2.55, glucose 163. It appears patient sustained an acute kidney injury on top of chronic kidney disease. Also, his potassium was 6 millimoles per liter yesterday morning, received a potassium cocktail, most recently potassium is down to 5.5. Urinalysis unremarkable. EKG: Atrial fibrillation with controlled ventricular response, rate 72 bpm, no obvious acute ischemic changes. Serial troponins elevated at 0.166, 0.16, and 0.13 respectively. Patient initially was on a heparin infusion, cardiology has since discontinued the IV heparin. Eliquis has since been resumed. Patient does have history of valvular heart disease and transcatheter aortic valve replacement back performed in 2022. Most recent available echocardiogram from Oct, 2022 estimating a left ventricular ejection fraction of 55 to 60%, stable bioprosthetic valve, and suggesting mild pulmonary hypertension with RVSP of 46 mmHg. Patient was on a noninvasive BiPAP since early this morning. He was started on a Lasix infusion at 10 mg/h. Currently, the patient is being evaluated in room 259. He is awake and alert and on 2 L/min nasal cannula. No respiratory distress noted. Blood pressure has been marginally hypotensive, 92/38 mmHg. Heart rhythm appears atrial fibrillation with controlled ventricular response. His lower extremity swelling has improved per the patient. Patient denies any chest pain, heart palpitations, syncopal events, orthopnea. Admits occasional nonproductive cough. Denies infectious symptoms. Denies nausea, vomiting, diarrhea. Denies hematemesis, melena, hematochezia. States he did fall while drinking alcohol at home. Denies losing consciousness. No obvious signs of head trauma. Reports daily alcohol use, drinks 2-3 large glasses of whiskey mixed with coke per day. Unclear when his last drink was. Serum alcohol level was less than 10 on arrival. No immediate signs of alcohol withdrawal. Current vital signs: Temperature 97.6 F, heart rate 58 bpm, blood pressure 92/38 mmHg, SpO2 recorded at 92% on 2 L/min nasal cannula. Patient was seen today on 10/27/2024, patient became quite obtunded last night, with worsening hypercapnia and worsening hypoxia. Patient developed a combined respiratory and metabolic acidosis, placed on BiPAP overnight 15//60%, and considering his obtundation, patient was close to be intubated and mechanically ventilated. Patient did receive Ativan 2 mg orally in PM yesterday and that may have contributed to his worsening hypercapnia/obtundation. This morning when I rounded on this patient is now on 4 L nasal cannula, ABG was done showed a pO2 of 146 pCO2 53 pH of 7.24 hence I recommended cutting down his FiO2 down to 2 L from 4 L I gave the patient 1 amp of bicarb and I cut down his Ativan to 1 mg every 4 hours only. Patient continues to have evidence of congestive heart failure echocardiogram showed good LV function and moderate-sized pericardial effusion with no evidence of tamponade. Lasix 80 mg IM was given this morning. IV fluid was 100 cc an hour I cut it down to KVO. Urine output is about 30 to 70 cc/h patient is off Levophed since 4 PM yesterday. WBC count today 5.0 hemoglobin 8.1, basic metabolic profile showed relatively normal electrolytes BUN is up to 97 creatinine up to 3.26, patient is being followed by nephrology. Patient was seen today on 10/28/2024, responding well to diuretics receiving Lasix 80 mg IV push twice daily. Patient has good urine output, he is in negative fluid balance. Creatinine is down to 2.7, potassium is 4.7, he is hemodynamically stable not requiring any pressors, patient does not seem to be in distress his WBC count is 4.4 hemoglobin 8.6, basic metabolic profile is normal BUN is 94 creatinine 2.77 patient is now on 2 L nasal cannula off BiPAP, plan to transfer the patient to medical floor/3 S. cardiac floor with monitor. Chest x-ray continues to show cardiomegaly and small pleural effusions. Objective - Vital Signs Vital signs: Vital Signs Temp 97.9 F 10/28/24 08:00 Pulse 76 10/28/24 11:18 Resp 17 10/28/24 08:00 BP 119/75 10/28/24 08:00 Pulse Ox 99 10/28/24 08:10 FiO2 50 10/27/24 08:30 Intake & Output 10/27/24 10/28/24 10/28/24 18:59 06:59 18:59 Intake Total 480 240 40 Output Total 1270 2035 320 Balance -790 -0808 -280 Intake: IV 480 240 40 Sodium Chloride 0.9% 1, 480 240 40 000 ml @ 10 mls/hr IV . Q24H [facility] Rx#:[id number] Output: Urine 1270 2035 320 Other: Voiding Method Indwelling Catheter Indwelling Catheter Indwelling Catheter - Exam GENERAL EXAM: Revealed 84-year-old white male on 2 L nasal cannula, in no distress HEAD: Normocephalic and atraumatic EYES: Normal reaction of pupils, equal size. NOSE: Clear with pink turbinates. THROAT: No erythema or exudates. NECK: No masses, no JVD. CHEST: No chest wall deformity. LUNGS: Diminished breath sound bilaterally no crackles rhonchi or wheezes CVS: S1 and S2 normal with soft systolic, irregular rhythm. No other extra heart sounds ABDOMEN: No hepatosplenomegaly, active bowel sounds, no guarding or rigidity. Positive ascites SKIN: No rashes CENTRAL NERVOUS SYSTEM: No focal deficits, tone is normal in all 4 extremities. EXTREMITIES: T 1-2+ bipedal edema - Labs CBC & Chem 7: 10/28/24 04:07 10/28/24 04:07 Labs: Abnormal Lab Results - Last 24 Hours (Table) 10/26/24 10/27/24 10/28/24 Range/Units 12:29 18:04 04:07 WBC 4.41 L (4.50-10.00) 10*3/uL RBC 2.58 L (4.40-5.60) 10*6/uL Hgb 8.6 L (13.0-17.0) g/dL Hct 27.1 L (39.6-50.0) % MCV 105.0 H (80.0-97.0) fL MCH 33.3 H (27.0-32.0) pg MCHC 31.7 L (32.0-37.0) g/dL Plt Count 60 L (140-440) 10*3/uL MPV 12.3 H (9.5-12.2) fL Lymphocytes # 0.07 L (0.90-5.00) 10*3/uL Monocytes # 0.18 L (0.20-1.00) 10*3/uL Eosinophils # 0.00 L (0.04-0.35) 10*3/uL BUN (9-20) mg/dL Creatinine (0.66-1.25) mg/dL Glucose (74-99) mg/dL POC Glucose (mg/dL) 174 H (70-110) mg/dL RBC Folate 969 H (280 - 791) ng/mL 10/28/24 Range/Units 04:07 WBC (4.50-10.00) 10*3/uL RBC (4.40-5.60) 10*6/uL Hgb (13.0-17.0) g/dL Hct (39.6-50.0) % MCV (80.0-97.0) fL MCH (27.0-32.0) pg MCHC (32.0-37.0) g/dL Plt Count (140-440) 10*3/uL MPV (9.5-12.2) fL Lymphocytes # (0.90-5.00) 10*3/uL Monocytes # (0.20-1.00) 10*3/uL Eosinophils # (0.04-0.35) 10*3/uL BUN 94 H (9-20) mg/dL Creatinine 2.77 H (0.66-1.25) mg/dL Glucose 141 H (74-99) mg/dL POC Glucose (mg/dL) (70-110) mg/dL RBC Folate (280 - 791) ng/mL Microbiology - Last 24 Hours (Table) 10/25/24 08:12 Blood Culture - Preliminary Blood Assessment and Plan Assessment: Impression: Acute CHF exacerbation, with preserved ejection fraction Chronic obstructive pulmonary disease, inactive at present Acute hypoxemic and hypercapnic respiratory failure, multifactorial related to congestive heart failure, underlying COPD, and Ativan that was given for alcohol withdrawal Atrial fibrillation with controlled ventricular response, anticoagulated on Eliquis History of valvular heart disease, status post transcatheter aortic valve replacement in 2022 Elevated troponins History of hypertension History of hyperlipidemia Acute kidney injury, on top of chronic kidney disease Severe hyperkalemia, mostly secondary to combined metabolic and respiratory acidosis Pancytopenia History of alcohol abuse, serum alcohol less than 10 on arrival Hard of hearing Former tobacco smoker Recommendation: Continue diuretics, Lasix 80 mg IV push twice daily Continue oxygen and titrate accordingly Continue Ativan at a lower dose Continue CIWA protocol Continue updrafts Continue methylprednisolone Continue midodrine Continue GI and DVT prophylaxis Transfer to 3 S./cardiac floor today Will continue to follow Time with Patient: Less than 30
--- NOTE | 2024-10-28 13:02 | FL ---
EXAMINATION TYPE: FL barium swallow w video DATE OF EXAM: 10/28/2024 MODIFIED SWALLOW / DEGLUTITION STUDY CLINICAL HISTORY: Dysphagia. TECHNIQUE: Deglutition study is performed utilizing thin liquid barium, barium thick pudding, and ba rium coated cracker. One minute 47 seconds of fluoro time and 93 images obtained. Total dose area product (DAP) in uGy*m?, mG y*cm? (or similar): 244.29 COMPARISON: None. FINDINGS: The oral and pharyngeal phases show satisfactory initiation and propagation with all modali ties tested. Normal mastication is seen with solid modalities tested. There is no evidence of penet ration or aspiration with any modality tested. No significant pharyngeal residue was appreciated. IMPRESSION: No aspiration is seen. Please refer to speech therapist notes for further details if nec essary. [facility], , 10/28/2024 1:00 PM
--- NOTE | 2024-10-28 15:26 | P.PN ---
Progress Note - Text Progress Note Date: 10/28/24 Chief Complaint: Multiple complaints This is a 84-year-old patient who follows with Dr. Jacobs. Chronic medical conditions include COPD, decreased hearing, hyperlipidemia hypertension previous [place] enlarged prostate gout uses a cane/walker. Drinks 2-3 mixed drinks a day. History is obtained by patient's son Romario at the bedside and his . Patient lives with his other son Sean. Of recent patient's been having falls. Hallucinations seeing things. Unsteady. Shaking. Appetite is okay. Patient is hard of hearing but able to answer simple questions. They cannot tell why he is here. No fever or chills reported. Patient has a tickle in the throat and intermittently keeps coughing. Some shortness of breath October 26: Saw the patient this morning. Last night patient was hypotensive, and started on Lasix drip. Moved to the ICU. Not much urine output. Tremors better. More awake. Started on Levophed drip. Off Lasix. On Ventimask 2D echo showed EF of 60 to 65%. Severe right-sided dilatation. Moderate pericardial effusion. 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 Did receive IV fluids. Because of hypotension. Today received IV Lasix. Good urine output. More awake. More settled. No further tremors. Down to 2 L nasal cannula. failed bedside swallow eval. Will do again will be evaluated tomorrow. October 1: ICU. Looks more comfortable. Communicating better. at the bedside. Underwent modified barium swallow. Minimal impairment. Seen by speech therapist. Diet advanced. Remains on IV Lasix 80 mg every 12. Good urine output. Creatinine 2.7. 2 L nasal cannula. Will be transferred off ICU. Discussed with patient and . Active Medications Hydrocodone Bitart/Acetaminophen (Hydrocodone/Apap 5-325mg 1 Each Tab) 1 each PO Q8H PRN PRN Reason: Pain Last Admin: 10/25/24 14:10 Dose: 1 each Albuterol/Ipratropium (Ipratropium-Albuterol 3 Ml Neb) 3 ml INHALATION RT-QID [facility] Last Admin: 10/28/24 11:02 Dose: 3 ml Allopurinol (Allopurinol 100 Mg Tab) 100 mg PO DAILY [facility] Last Admin: 10/28/24 08:00 Dose: 100 mg Apixaban (Apixaban 2.5 Mg Tablet) 2.5 mg PO BID [facility]; Protocol Last Admin: 10/28/24 08:00 Dose: 2.5 mg Atorvastatin Calcium (Atorvastatin 40 Mg Tab) 40 mg PO DAILY [facility] Last Admin: 10/28/24 08:00 Dose: 40 mg Calcium Carbonate/Glycine (Calcium Carbonate 500 Mg Chewable) 500 mg PO BID [facility] Last Admin: 10/28/24 08:00 Dose: 500 mg Diclofenac Sodium (Diclofenac Sodium Gel 100 Gm Tube) 2 gm TOPICAL Q8H PRN; Protocol PRN Reason: Pain Ferrous Sulfate (Ferrous Sulfate 325 Mg Tab) 325 mg PO [facility] Last Admin: 10/27/24 22:09 Dose: Not Given Furosemide (Furosemide 10 Mg/Ml 10 Ml Vial) 80 mg IV Q12HR [facility] Last Admin: 10/28/24 07:59 Dose: 80 mg Gabapentin (Gabapentin 100 Mg Cap) 200 mg PO [facility] Last Admin: 10/27/24 22:09 Dose: Not Given Sodium Chloride (Saline 0.9%) 1,000 mls @ 10 mls/hr IV .Q24H [facility] Last Admin: 10/28/24 03:44 Dose: 10 mls/hr Norepinephrine Bitartrate 4 mg (/ Sodium Chloride) 254 mls @ 9.021 mls/hr IV .Q24H [facility]; Protocol Last Admin: 10/28/24 08:01 Dose: Not Given Lorazepam (Lorazepam 1 Mg Tab) 1 mg PO Q4HR PRN PRN Reason: Ciwa 6 To 7 Methylprednisolone Sodium Succinate (Methylprednisolone Sod Succi 40 Mg/Ml 1 Ml Vial) 40 mg IV Q12HR [facility] Last Admin: 10/28/24 07:59 Dose: 40 mg Metoprolol Succinate (Metoprolol Succinate (Er) 25 Mg Tab.Er.24h) 37.5 mg PO DAILY [facility] Last Admin: 10/28/24 08:00 Dose: 37.5 mg Midodrine (Midodrine 5 Mg Tab) 5 mg PO AC-BID [facility] Last Admin: 10/28/24 08:00 Dose: 5 mg Multivitamins (Multivitamins, Thera 1 Each Tab) 1 each PO DAILY [facility] Last Admin: 10/28/24 08:00 Dose: 1 each Pantoprazole Sodium (Pantoprazole 40 Mg Tablet) 40 mg PO DAILY [facility] Last Admin: 10/28/24 08:00 Dose: 40 mg Tamsulosin HCl (Tamsulosin 0.4 Mg Cap.Er.24h) 0.8 mg PO HS [facility] Last Admin: 10/27/24 22:10 Dose: Not Given Thiamine HCl (Thiamine 100 Mg Tab) 100 mg PO DAILY [facility] Last Admin: 10/28/24 08:00 Dose: 100 mg Social history: Patient has least 2-3 mixed drinks daily. Stop smoking at the age of 42. Half a pack a day. Does use a cane/walker. Lives with his son Sean. Physical examination: VITAL SIGNS: 97.9, 81, 17, 190 95, 100% 2 L GENERAL: BMI 29, declined bit more awake answering simple questions EYES: Pupils equal. Conjunctiva ramya l. HEENT: External appearance of nose and ears normal, oral cavity grossly normal. NECK: JVD unable to assess; masses not palpable. HEART: First and second heart sounds are normal; edema present. LUNGS: Respiratory rate increased, decreased breath sounds. ABDOMEN: Soft, nontender, liver spleen not palpable, no masses palpable. PSYCH: Answering simple questions. More awake today MUSCULOSKELETAL:No Clubbing/cyanosis;muscles-grossly intact. OA and many joint NEUROLOGICAL: Cranial nerves grossly intact; no facial asymmetry, no jerking INVESTIGATIONS, reviewed in the clinical context: Modified barium swallow: Minimal impairment October 28: White count 4.4 hemoglobin 8.6 platelets 60 potassium 4.7 BUN 94 creatinine 2.77 October 27: White count 5.0 hemoglobin 8.1 platelets 53. ABG: pH 7.2 [id number] PO2 146 potassium 5.3 BUN 97 creatinine 3.26 Renal ultrasound: Possible hepatic cirrhosis. Ascites. 2D echo: EF 60 to 65%. Severe right ventricle dilatation. Moderate pulmonary hypertension. Normal functioning bioprosthetic arctic valve. Without stenosis. Severe tricuspid regurgitation. Moderate pericardial effusion left pleural effusion October 26: White count 4.5 hemoglobin 8.1 platelets 57 sodium 135 potassium 5.6 BUN 90 creatinine 3.05 October 25: White count 1.9 hemoglobin 9.2 platelets 63 sodium 139 potassium 6 BUN 84 creatinine 2.23 October 24: White count 2.7 hemoglobin 9.2 platelets 58. Sodium 139 potassium 5.3 BUN 88 creatinine 2.21 Troponin I, 0.166, 0.157, 0.130 Serum alcohol less than 10 EKG tracing personally reviewed by me-atrial fibrillation. Chest x-ray film personally reviewed by me-cardiomegaly, with pulm edema Prior labs: November 14, 2023: Creatinine 1.5 2D echo 2022: EF 50 to 60%. Moderate pulmonary hypertension. Normal functioning bioprosthetic valve. Assessment plan: - Acute congestive heart failure exacerbation probably diastolic dysfunction, EF 50 to 60%: Improving Strict I's and O's. Fluid restriction 2000 cc a day. Lasix IV 80 mg every 12 - Bioprosthetic valve, aortic - Acute hypoxic, hypercapnic respiratory failure: Much improved Was on Ventimask. Now down to 2 L - Acute delirium, metabolic encephalopathy likely from worsening kidney function . And hypoxia: Improved Supplemental oxygen. 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 Improved Modified barium swallow: Minimal impairment. Diet advanced to ground with nectar thick liquids. One-to-one supervision Seen by speech therapist - Acute kidney injury likely ATN from cardiorenal. Syndrome.: Improvement Renal ultrasound. Noted Lasix 80 mg IV every 12 Nephrology following - Chronic kidney disease, with creatinine being 1.5 in October 2023. Stage III likely nephrosclerosis - Troponinemia. In the setting of worsening renal failure. No chest pain reported. Doubt ACS Cardiology following - Hyperkalemia. Kayexalate. Renal diet. - Tremors twitching reported by family. Likely from patient being on gabapentin in the setting of worsening renal function: Resolved Neurontin was initially held and dose cut back - Pancytopenia, could be from underlying liver disease. Given that patient been drinking alcohol for some time. Follow CBC - Persistent atrial fibrillation. Rate controlled. Eliquis. -Alcohol use disorder. 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 Kidney function improving. Improving mentation. Diet advanced ground diet Past Medical History Past Medical History: COPD, CVA/TIA, Hearing Disorder / Deafness, Hyperlipidemia, Hypertension, Myocardial Infarction ([place]), Prostate Disorder Additional Past Medical History / Comment(s): Aortic Valve stenosis,Heart murmur, possible CVA or heart attack-pt not sure, back pain, gout, uses cane, hard of hearing-no hearing aides. Last Myocardial Infarction Date:: 2020? History of Any Multi-Drug Resistant Organisms: None Reported Past Surgical History: Appendectomy, Heart Catheterization, Orthopedic Surgery Additional Past Surgical History / Comment(s): Reverse shoulder, right toe surgery, left hand ring finger surgery, colonoscopy, JUAN PABLO. Past Anesthesia/Blood Transfusion Reactions: No Reported Reaction Additional Past Anesthesia/Blood Transfusion Reaction / Comment(s): No hx blood transfusion. Past Psychological History: No Psychological Hx Reported Smoking Status: Former smoker Past Alcohol Use History: Daily Past Drug Use History: None Reported
--- NOTE | 2024-10-28 16:06 | P.PN ---
Subjective Progress Note Date: 10/28/24 Pt seen in ICU today. Pt looking much improved. More alert, answering questions appropriately. Plts improved today to 60,000. No reported episodes of acute bleeding Objective - Vital Signs Vital signs: Vital Signs Temp 97.9 F 10/28/24 08:00 Pulse 76 10/28/24 11:18 Resp 17 10/28/24 08:00 BP 119/75 10/28/24 08:00 Pulse Ox 99 10/28/24 08:10 FiO2 50 10/27/24 08:30 Intake & Output 10/27/24 10/28/24 10/28/24 18:59 06:59 18:59 Intake Total 480 240 40 Output Total 1270 2035 320 Balance -790 -0561 -280 Intake: IV 480 240 40 Sodium Chloride 0.9% 1, 480 240 40 000 ml @ 10 mls/hr IV . Q24H [facility] Rx#:[id number] Output: Urine 1270 2035 320 Other: Voiding Method Indwelling Catheter Indwelling Catheter Indwelling Catheter - Constitutional General appearance: Present: no acute distress - EENT Eyes: Present: anicteric sclerae, EOMI ENT: Present: hearing grossly normal - Respiratory Details: breathing is even and unlabored - Cardiovascular Details: skin warm and dry - Integumentary Integumentary: Absent: cyanotic - Musculoskeletal Musculoskeletal: Present: generalized weakness - Psychiatric Psychiatric: Present: A&O x's 3 - Labs CBC & Chem 7: 10/28/24 04:07 10/28/24 04:07 Labs: Abnormal Lab Results - Last 24 Hours (Table) 10/27/24 10/28/24 10/28/24 Range/Units 18:04 04:07 04:07 WBC 4.41 L (4.50-10.00) 10*3/uL RBC 2.58 L (4.40-5.60) 10*6/uL Hgb 8.6 L (13.0-17.0) g/dL Hct 27.1 L (39.6-50.0) % MCV 105.0 H (80.0-97.0) fL MCH 33.3 H (27.0-32.0) pg MCHC 31.7 L (32.0-37.0) g/dL Plt Count 60 L (140-440) 10*3/uL MPV 12.3 H (9.5-12.2) fL Lymphocytes # 0.07 L (0.90-5.00) 10*3/uL Monocytes # 0.18 L (0.20-1.00) 10*3/uL Eosinophils # 0.00 L (0.04-0.35) 10*3/uL BUN 94 H (9-20) mg/dL Creatinine 2.77 H (0.66-1.25) mg/dL Glucose 141 H (74-99) mg/dL POC Glucose (mg/dL) 174 H (70-110) mg/dL Microbiology - Last 24 Hours (Table) 10/25/24 08:12 Blood Culture - Preliminary Blood Assessment and Plan (1) Thrombocytopenia Current Visit: Yes Status: Acute Code(s): D69.6 - THROMBOCYTOPENIA, UNSPECIFIED SNOMED Code(s): 759867950 (2) BRUNO (acute kidney injury) Current Visit: Yes Status: Acute Code(s): N17.9 - ACUTE KIDNEY FAILURE, UNSPECIFIED SNOMED Code(s): 42812796 (3) Altered mental status Current Visit: Yes Status: Acute Code(s): R41.82 - ALTERED MENTAL STATUS, UNSPECIFIED SNOMED Code(s): 425650821 (4) Bilateral leg edema Current Visit: Yes Status: Acute Code(s): R60.0 - LOCALIZED EDEMA SNOMED Code(s): 357118485 (5) CHF (congestive heart failure) Current Visit: Yes Status: Acute Code(s): I50.9 - HEART FAILURE, UNSPECIFIED SNOMED Code(s): 35835432 (6) NSTEMI (non-ST elevated myocardial infarction) Current Visit: Yes Status: Acute Code(s): I21.4 - NON-ST ELEVATION (NSTEMI) MYOCARDIAL INFARCTION SNOMED Code(s): 23259048 Plan: CHF exacerbation, NSTEMI: Patient presented to the hospital with complaints of shortness of breath, bilateral lower extremity edema and weakness. Patient was also having mental status changes and was noted to have shaky and jerking movements of his extremities. He was found to be hypotensive and was started on Levophed and was admitted to the ICU -On admit chest x-ray showed cardiomegaly, pulmonary vascular congestion and bilateral pleural effusions. -BNP 2420. Diuretics have been started -Serial troponins elevated -Defer management to intensive care team and cardiology BRUNO: -BRUNO noted on admit -Kidney function improving -Nephrology following Thrombocytopenia: Mild thrombocytopenia noted since 2022. Last plts within EMR was 129,000 in September 2023. Patient has long history ETOH abuse, Drinking 2-3 large glasses of whiskey daily. No reported episodes of acute bleeding -Abdominal ultrasound showing hepatic cirrhosis and ascites. -CBC showing WBC 4.5, hemoglobin 8.1, platelets 57,000 Coags elevated. Bilirubin 1.2, AST 38, ALT 20, ALP 141. -Thrombocytopenia likely related to ongoing alcohol abuse and cirrhosis, superimposed by CHF exacerbation -Will obtain nutritional labs and DIC workup -No nutritional deficiencies noted. DIC negative -Plts improved today to 60,000 -From a hematology perspective patient can be continued on Eliquis as previously recommended for his atrial fibrillation as long plts are > 50,000. However, recommend accessing risk vs benefits, regarding continued alcohol abuse and possible worsening of liver function/thrombocytopenia as well as fall risk. -Continue to monitor CBC. Transfuse for hgb <7 and for plts <50,000 if patient remains on anticoagulation
[2024-10-28] MEDS: SPIRONOLACTONE 25 MG TAB PO SCH (17:34)
[2024-10-29] MEDS: FUROSEMIDE 80 MG TAB PO SCH (09:23)
--- NOTE | 2024-10-29 12:47 | P.PN ---
Subjective Progress Note Date: 10/29/24 Principal diagnosis: Acute hypoxic and hypercapnic respiratory failure secondary to acute congestive heart failure with preserved LV function and underlying COPD. Patient is an 85-year-old male with past medical history significant for COPD, heart failure, TAVR, hypertension, hyperlipidemia, alcohol abuse. Patient is hard of hearing and a poor historian. Reportedly, having episodes of hallucinations and tremors while at home. Per the ER note, presented on 10/24/2024, with a chief complaint of shortness of breath with associated lower extremity swelling. Initially, patient was placed on BiPAP. Workup in the ED including a chest x-ray demonstrating cardiomegaly, pulmonary vascular congestion, and small bilateral pleural effusions. NT proBNP was elevated at 2420. Remaining blood work including a CBC with a WBC count 1.9, hemoglobin 9.2, platelets 63,000. Most recent CMP from yesterday including a sodium 136, potassium 5.5, chloride 102, serum bicarb 20, BUN 90, creatinine 2.55, glucose 163. It appears patient sustained an acute kidney injury on top of chronic kidney disease. Also, his potassium was 6 millimoles per liter yesterday morning, received a potassium cocktail, most recently potassium is down to 5.5. Urinalysis unremarkable. EKG: Atrial fibrillation with controlled ventricular response, rate 72 bpm, no obvious acute ischemic changes. Serial troponins elevated at 0.166, 0.16, and 0.13 respectively. Patient initially was on a heparin infusion, cardiology has since discontinued the IV heparin. Eliquis has since been resumed. Patient does have history of valvular heart disease and transcatheter aortic valve replacement back performed in 2022. Most recent available echocardiogram from Oct, 2022 estimating a left ventricular ejection fraction of 55 to 60%, stable bioprosthetic valve, and suggesting mild pulmonary hypertension with RVSP of 46 mmHg. Patient was on a noninvasive BiPAP since early this morning. He was started on a Lasix infusion at 10 mg/h. Currently, the patient is being evaluated in room 259. He is awake and alert and on 2 L/min nasal cannula. No respiratory distress noted. Blood pressure has been marginally hypotensive, 92/38 mmHg. Heart rhythm appears atrial fibrillation with controlled ventricular response. His lower extremity swelling has improved per the patient. Patient denies any chest pain, heart palpitations, syncopal events, orthopnea. Admits occasional nonproductive cough. Denies infectious symptoms. Denies nausea, vomiting, diarrhea. Denies hematemesis, melena, hematochezia. States he did fall while drinking alcohol at home. Denies losing consciousness. No obvious signs of head trauma. Reports daily alcohol use, drinks 2-3 large glasses of whiskey mixed with coke per day. Unclear when his last drink was. Serum alcohol level was less than 10 on arrival. No immediate signs of alcohol withdrawal. Current vital signs: Temperature 97.6 F, heart rate 58 bpm, blood pressure 92/38 mmHg, SpO2 recorded at 92% on 2 L/min nasal cannula. Patient was seen today on 10/27/2024, patient became quite obtunded last night, with worsening hypercapnia and worsening hypoxia. Patient developed a combined respiratory and metabolic acidosis, placed on BiPAP overnight 15//60%, and considering his obtundation, patient was close to be intubated and mechanically ventilated. Patient did receive Ativan 2 mg orally in PM yesterday and that may have contributed to his worsening hypercapnia/obtundation. This morning when I rounded on this patient is now on 4 L nasal cannula, ABG was done showed a pO2 of 146 pCO2 53 pH of 7.24 hence I recommended cutting down his FiO2 down to 2 L from 4 L I gave the patient 1 amp of bicarb and I cut down his Ativan to 1 mg every 4 hours only. Patient continues to have evidence of congestive heart failure echocardiogram showed good LV function and moderate-sized pericardial effusion with no evidence of tamponade. Lasix 80 mg IM was given this morning. IV fluid was 100 cc an hour I cut it down to KVO. Urine output is about 30 to 70 cc/h patient is off Levophed since 4 PM yesterday. WBC count today 5.0 hemoglobin 8.1, basic metabolic profile showed relatively normal electrolytes BUN is up to 97 creatinine up to 3.26, patient is being followed by nephrology. Patient was seen today on 10/28/2024, responding well to diuretics receiving Lasix 80 mg IV push twice daily. Patient has good urine output, he is in negative fluid balance. Creatinine is down to 2.7, potassium is 4.7, he is hemodynamically stable not requiring any pressors, patient does not seem to be in distress his WBC count is 4.4 hemoglobin 8.6, basic metabolic profile is normal BUN is 94 creatinine 2.77 patient is now on 2 L nasal cannula off BiPAP, plan to transfer the patient to medical floor/3 S. cardiac floor with monitor. Chest x-ray continues to show cardiomegaly and small pleural effusions. Patient was seen today on 10/29/2024, remains in the ICU but he is actually 3 S. overflow. Patient is on 2 L nasal cannula did not require BiPAP last night, seems to be very comfortable, in no distress. Denies shortness of breath denies any chest pain his WBC count today is 4.4 hemoglobin 8.6 platelets remain low at 60,000 but improving, basic metabolic profile is normal creatinine is improving down to 2.77 continues to have good urine output with Lasix 80 mg IV push twice daily. Patient had modified barium yesterday, no aspiration noted. Objective - Vital Signs Vital signs: Vital Signs Temp 97.9 F 10/29/24 11:42 Pulse 72 10/29/24 12:20 Resp 20 10/29/24 11:42 BP 107/66 10/29/24 11:42 Pulse Ox 97 10/29/24 11:42 FiO2 50 10/27/24 08:30 Intake & Output 10/28/24 10/29/24 10/29/24 18:59 06:59 18:59 Intake Total 40 240 0 Output Total 1370 1500 300 Balance -1330 -1260 -300 Intake: IV 40 0 Sodium Chloride 0.9% 1, 40 0 000 ml @ 10 mls/hr IV . Q24H [facility] Rx#:[id number] Oral 240 Output: Urine 1370 1500 300 Other: Voiding Method Indwelling Catheter Indwelling Catheter Indwelling Catheter # Bowel Movements 2 - Exam GENERAL EXAM: Revealed 84-year-old white male on 2 L nasal cannula, in no distress HEAD: Normocephalic and atraumatic EYES: Normal reaction of pupils, equal size. NOSE: Clear with pink turbinates. THROAT: No erythema or exudates. NECK: No masses, no JVD. CHEST: No chest wall deformity. LUNGS: Diminished breath sound bilaterally no crackles rhonchi or wheezes CVS: S1 and S2 normal with soft systolic, irregular rhythm. No other extra heart sounds ABDOMEN: No hepatosplenomegaly, active bowel sounds, no guarding or rigidity. Positive ascites SKIN: No rashes CENTRAL NERVOUS SYSTEM: No focal deficits, tone is normal in all 4 extremities. EXTREMITIES: Trace of bipedal edema - Labs CBC & Chem 7: 10/28/24 04:07 10/28/24 04:07 Labs: Microbiology - Last 24 Hours (Table) 10/25/24 08:12 Blood Culture - Preliminary Blood Assessment and Plan Assessment: Impression: Acute CHF exacerbation, with preserved ejection fraction Chronic obstructive pulmonary disease, inactive at present Acute hypoxemic and hypercapnic respiratory failure, multifactorial related to congestive heart failure, underlying COPD, and Ativan that was given for alcohol withdrawal Atrial fibrillation with controlled ventricular response, anticoagulated on Eliquis History of valvular heart disease, status post transcatheter aortic valve replacement in 2022 Elevated troponins History of hypertension History of hyperlipidemia Acute kidney injury, on top of chronic kidney disease Severe hyperkalemia, mostly secondary to combined metabolic and respiratory acidosis Pancytopenia History of alcohol abuse, serum alcohol less than 10 on arrival Hard of hearing Former tobacco smoker Recommendation: Continue diuretics, Lasix 80 mg IV push twice daily Continue oxygen and titrate accordingly Continue Ativan at a lower dose Continue CIWA protocol Continue updrafts Continue methylprednisolone Continue midodrine Continue GI and DVT prophylaxis Transfer to 3 S./cardiac floor today Will continue to follow Time with Patient: Less than 30
--- NOTE | 2024-10-29 13:49 | P.PN ---
Progress Note - Text Progress Note Date: 10/29/24 Chief Complaint: Multiple complaints This is a 84-year-old patient who follows with Dr. Jacobs. Chronic medical conditions include COPD, decreased hearing, hyperlipidemia hypertension previous DE enlarged prostate gout uses a cane/walker. Drinks 2-3 mixed drinks a day. History is obtained by patient's son Romario at the bedside and his . Patient lives with his other son Sean. Of recent patient's been having falls. Hallucinations seeing things. Unsteady. Shaking. Appetite is okay. Patient is hard of hearing but able to answer simple questions. They cannot tell why he is here. No fever or chills reported. Patient has a tickle in the throat and intermittently keeps coughing. Some shortness of breath October 26: Saw the patient this morning. Last night patient was hypotensive, and started on Lasix drip. Moved to the ICU. Not much urine output. Tremors better. More awake. Started on Levophed drip. Off Lasix. On Ventimask 2D echo showed EF of 60 to 65%. Severe right-sided dilatation. Moderate pericardial effusion. 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 Did receive IV fluids. Because of hypotension. Today received IV Lasix. Good urine output. More awake. More settled. No further tremors. Down to 2 L nasal cannula. failed bedside swallow eval. Will do again will be evaluated tomorrow. October 1: ICU. Looks more comfortable. Communicating better. at the bedside. Underwent modified barium swallow. Minimal impairment. Seen by speech therapist. Diet advanced. Remains on IV Lasix 80 mg every 12. Good urine output. Creatinine 2.7. 2 L nasal cannula. Will be transferred off ICU. Discussed with patient and . October 2: ICU. Up in a chair. Talking much better. Eating all his meals. Remains on IV Lasix. Did not require BiPAP overnight. 2 L nasal cannula. Active Medications Hydrocodone Bitart/Acetaminophen (Hydrocodone/Apap 5-325mg 1 Each Tab) 1 each PO Q8H PRN PRN Reason: Pain Last Admin: 10/28/24 21:33 Dose: 1 each Albuterol/Ipratropium (Ipratropium-Albuterol 3 Ml Neb) 3 ml INHALATION RT-QID [facility] Last Admin: 10/29/24 12:09 Dose: 3 ml Allopurinol (Allopurinol 100 Mg Tab) 100 mg PO DAILY [facility] Last Admin: 10/29/24 09:23 Dose: 100 mg Apixaban (Apixaban 2.5 Mg Tablet) 2.5 mg PO BID [facility]; Protocol Last Admin: 10/29/24 09:23 Dose: 2.5 mg Atorvastatin Calcium (Atorvastatin 40 Mg Tab) 40 mg PO DAILY [facility] Last Admin: 10/29/24 09:23 Dose: 40 mg Calcium Carbonate/Glycine (Calcium Carbonate 500 Mg Chewable) 500 mg PO BID [facility] Last Admin: 10/29/24 09:22 Dose: 500 mg Diclofenac Sodium (Diclofenac Sodium Gel 100 Gm Tube) 2 gm TOPICAL Q8H PRN; Protocol PRN Reason: Pain Ferrous Sulfate (Ferrous Sulfate 325 Mg Tab) 325 mg PO HS [facility] Last Admin: 10/28/24 21:33 Dose: 325 mg Furosemide (Furosemide 80 Mg Tab) 80 mg PO BID@0900,1600 [facility] Last Admin: 10/29/24 09:23 Dose: 80 mg Gabapentin (Gabapentin 100 Mg Cap) 200 mg PO HS [facility] Last Admin: 10/28/24 21:34 Dose: 200 mg Sodium Chloride (Saline 0.9%) 1,000 mls @ 10 mls/hr IV .Q24H [facility] Last Admin: 10/29/24 02:39 Dose: Not Given Lorazepam (Lorazepam 1 Mg Tab) 1 mg PO Q4HR PRN PRN Reason: Ciwa 6 To 7 Methylprednisolone Sodium Succinate (Methylprednisolone Sod Succi 40 Mg/Ml 1 Ml Vial) 40 mg IV Q12HR [facility] Last Admin: 10/29/24 09:24 Dose: 40 mg Metoprolol Succinate (Metoprolol Succinate (Er) 25 Mg Tab.Er.24h) 37.5 mg PO DAILY [facility] Last Admin: 10/29/24 09:23 Dose: 37.5 mg Midodrine (Midodrine 5 Mg Tab) 5 mg PO AC-BID [facility] Last Admin: 10/29/24 06:35 Dose: 5 mg Multivitamins (Multivitamins, Thera 1 Each Tab) 1 each PO DAILY [facility] Last Admin: 10/29/24 09:24 Dose: 1 each Pantoprazole Sodium (Pantoprazole 40 Mg Tablet) 40 mg PO DAILY [facility] Last Admin: 10/29/24 09:24 Dose: 40 mg Spironolactone (Spironolactone 25 Mg Tab) 50 mg PO DAILY [facility] Last Admin: 10/29/24 09:23 Dose: 50 mg Tamsulosin HCl (Tamsulosin 0.4 Mg Cap.Er.24h) 0.8 mg PO HS [facility] Last Admin: 10/28/24 21:35 Dose: 0.8 mg Thiamine HCl (Thiamine 100 Mg Tab) 100 mg PO DAILY [facility] Last Admin: 10/29/24 09:24 Dose: 100 mg Social history: Patient has least 2-3 mixed drinks daily. Stop smoking at the age of 42. Half a pack a day. Does use a cane/walker. Lives with his son Sean. Physical examination: VITAL SIGNS: 97.9, 73, 20, 107 x 76, 97% 2 L GENERAL: BMI 29, up in a chair, comfortable EYES: Pupils equal. Conjunctiva ramya l. HEENT: External appearance of nose and ears normal, oral cavity grossly normal. NECK: JVD unable to assess; masses not palpable. HEART: First and second heart sounds are normal; edema coming down LUNGS: Respiratory rate normal, decreased breath sounds. ABDOMEN: Soft, nontender, liver spleen not palpable, no masses palpable. PSYCH: Answering questions better. MUSCULOSKELETAL:No Clubbing/cyanosis;muscles-grossly intact. OA and many joint NEUROLOGICAL: Cranial nerves grossly intact; no facial asymmetry, no jerking INVESTIGATIONS, reviewed in the clinical context: October 29: White count 4.4 hemoglobin 8.6 platelets 60 potassium 4.7 BUN 94 creatinine 2.77 Modified barium swallow: Minimal impairment October 28: White count 4.4 hemoglobin 8.6 platelets 60 potassium 4.7 BUN 94 creatinine 2.77 October 27: White count 5.0 hemoglobin 8.1 platelets 53. ABG: pH 7.2 [id number] PO2 146 potassium 5.3 BUN 97 creatinine 3.26 Renal ultrasound: Possible hepatic cirrhosis. Ascites. 2D echo: EF 60 to 65%. Severe right ventricle dilatation. Moderate pulmonary hypertension. Normal functioning bioprosthetic arctic valve. Without stenosis. Severe tricuspid regurgitation. Moderate pericardial effusion left pleural effusion October 26: White count 4.5 hemoglobin 8.1 platelets 57 sodium 135 potassium 5.6 BUN 90 creatinine 3.05 October 25: White count 1.9 hemoglobin 9.2 platelets 63 sodium 139 potassium 6 BUN 84 creatinine 2.23 October 24: White count 2.7 hemoglobin 9.2 platelets 58. Sodium 139 potassium 5.3 BUN 88 creatinine 2.21 Troponin I, 0.166, 0.157, 0.130 Serum alcohol less than 10 EKG tracing personally reviewed by me-atrial fibrillation. Chest x-ray film personally reviewed by me-cardiomegaly, with pulm edema Prior labs: November 14, 2023: Creatinine 1.5 2D echo 2022: EF 50 to 60%. Moderate pulmonary hypertension. Normal functioning bioprosthetic valve. Assessment plan: - Acute congestive heart failure exacerbation probably diastolic dysfunction, EF 50 to 60%: Improving Strict I's and O's. Fluid restriction 2000 cc a day. Lasix IV 80 mg every 12 - Bioprosthetic valve, aortic - Acute hypoxic, hypercapnic respiratory failure: Much improved Was on Ventimask. Now down to 2 L - Acute delirium, metabolic encephalopathy likely from worsening kidney function. And hypoxia: Resolved Supplemental oxygen. 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 Improved Modified barium swallow: Minimal impairment. Diet advanced to ground with nectar thick liquids. One-to-one supervision Seen by speech therapist - Acute kidney injury likely ATN from cardiorenal. Syndrome.: Improvement Renal ultrasound. Noted Lasix 80 mg IV every 12 Nephrology following - Chronic kidney disease, with creatinine being 1.5 in October 2023. Stage III likely nephrosclerosis - Troponinemia. In the setting of worsening renal failure. No chest pain reported. Doubt ACS Cardiology following - Hyperkalemia. Kayexalate. Renal diet. - Tremors twitching reported by family. Likely from patient being on gabapentin in the setting of worsening renal function: Resolved Neurontin was initially held and dose cut back - Pancytopenia, could be from underlying liver disease. Given that patient been drinking alcohol for some time. Follow CBC - Persistent atrial fibrillation. Rate controlled. Eliquis. -Alcohol use disorder. Leading to cirrhosis - Chronic hard of hearing, does not have hearing aids - Chronic gout Allopurinol - GERD PPI - BPH Flomax - Primary osteoarthritis multiple joints Diclofenac sodium topical - Full code - Medical power of support team member, son Andres Continue Lasix 80 mg IV every 12. Eating well. Follow labs increase activity Past Medical History Past Medical History: COPD, CVA/TIA, Hearing Disorder / Deafness, Hyperlipidemia, Hypertension, Myocardial Infarction ([place]), Prostate Disorder Additional Past Medical History / Comment(s): Aortic Valve stenosis,Heart murmur, possible CVA or heart attack-pt not sure, back pain, gout, uses cane, hard of hearing-no hearing aides. Last Myocardial Infarction Date:: 2020? History of Any Multi-Drug Resistant Organisms: None Reported Past Surgical History: Appendectomy, Heart Catheterization, Orthopedic Surgery Additional Past Surgical History / Comment(s): Reverse shoulder, right toe surgery, left hand ring finger surgery, colonoscopy, JUAN PABLO. Past Anesthesia/Blood Transfusion Reactions: No Reported Reaction Additional Past Anesthesia/Blood Transfusion Reaction / Comment(s): No hx blood transfusion. Past Psychological History: No Psychological Hx Reported Smoking Status: Former smoker Past Alcohol Use History: Daily Past Drug Use History: None Reported
--- NOTE | 2024-10-29 16:41 | P.PN ---
Subjective Patient is seen for follow-up for acute kidney injury and CHF. He is currently being diuresed. Urine output has improved along with improvement in renal function as well. Serum creatinine down to 2.7. No labs today Potassium is 4.7. Maintained on nasal cannula. Objective - Vital Signs Vital signs: Vital Signs Temp 97.9 F 10/29/24 11:42 Pulse 70 10/29/24 16:06 Resp 20 10/29/24 11:42 BP 107/66 10/29/24 11:42 Pulse Ox 97 10/29/24 11:42 FiO2 50 10/27/24 08:30 Intake & Output 10/28/24 10/29/24 10/29/24 18:59 06:59 18:59 Intake Total 40 240 240 Output Total 1370 1500 600 Balance -1330 -1260 -360 Intake: IV 40 0 Sodium Chloride 0.9% 1, 40 0 000 ml @ 10 mls/hr IV . 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 - Labs CBC & Chem 7: 10/28/24 04:07 10/28/24 04:07 Labs: Microbiology - Last 24 Hours (Table) 10/25/24 08:12 Blood Culture - Preliminary Blood Assessment and Plan Assessment: 1. Acute kidney injury, ATN from hypotension, oliguric with improving urine output. Status post IV fluids on initial admission. Currently hypervolemic and being diuresed. Moderate pericardial effusion noted with no evidence of tamponade. 2. Mental status changes most likely metabolic encephalopathy. Serum ammonia was 30. Mentation improved significantly. 3. History of significant alcohol intake on a regular basis with serum alcohol less than 10 on admission 4. Hyperkalemia associated with acute kidney injury, improved. Maintained on Lokelma, improved with improving urine output and loop diuretics 5. Moderate pericardial effusion with no evidence of tamponade Plan: Continue with current dose of IV Lasix Continue with midodrine Repeat labs today and in a.m.
--- NOTE | 2024-10-29 18:20 | PN ---
PROGRESS NOTE SUBJECTIVE: Sean is an 84-year-old gentleman with history of mild nonobstructive CAD, aortic stenosis, status post TAVR, atrial fibrillation, hypertension, dyslipidemia, who presented to hospital with CHF exacerbation, had leg edema and shortness of breath. He has history of atrial fibrillation, heart rate is well controlled, stable hemodynamically. The patient is on Eliquis 2.5 b.i.d., Lipitor 40 q. daily, Lasix 80 IV q.12, Toprol-XL 37.5 mg daily and Aldactone. PHYSICAL EXAMINATION: VITAL SIGNS: Heart rate is 63 beats per minute. Blood pressure is 109/74, respiratory rate is 18. O2 saturation is 96% on 2 L. CHEST: Reveals good air entry bilaterally without any crackles or rhonchi. HEART: Reveals first and second heart sounds, irregular rhythm. ABDOMEN: Soft. EXTREMITIES: Reveal mild edema, but much improved compared to where we were. LABORATORY DATA: Labs show a hemoglobin of 8.6. Potassium is 4.7, BUN is 94, creatinine is 2.7. ASSESSMENT: Acute on chronic diastolic heart failure, status post aortic stenosis, status post TAVR, elevated troponin secondary to renal failure and cytopenia with the platelet count over 50. PLAN: I am going to change the Lasix to p.o. The patient is stable to be transferred out of ICU. SANDRA / JACINTA: [id number] /
[2024-10-30 07:55] LABS: African American GFR (CKD) 40 (>60 ml/min/1.73 sqM); Anion Gap 8 mmol/L; Blood Urea Nitrogen 95 mg/dL (9-20); Carbon Dioxide 33 mmol/L (22-30); Chloride 99 mmol/L (98-107); Glucose 100 mg/dL (74-99); Non-African American GFR(CKD) 34 (>60 ml/min/1.73 sqM); Potassium 4.3 mmol/L (3.5-5.1); Sodium 140 mmol/L (137-145)
[2024-10-30 09:31] VITALS: RESP 16
--- NOTE | 2024-10-30 12:39 | P.PN ---
Subjective HISTORY OF PRESENT ILLNESS: This is a 84-year-old male with a past medical history significant for nonobstructive CAD, severe aortic stenosis with previous TAVR, hypertension, hyperlipidemia, and atrial fibrillation. Patient follows in the office with Dr. Javier. We have been asked to see the patient in consultation for CHF. Patient examined at the bedside. Patient presented to the ER with a chief complaint shortness of breath. Patient's family is at the bedside and states that patient has been shaking a lot at home. They report he has been falling frequently and is very weak. They state for the past 2 to 3 days he has been having bucio ucinations at home where he has been seeing his in the house. DIAGNOSTICS: - EKG reveals atrial fibrillation with controlled ventricular rate. - Chest xray cardiomegaly, pulmonary vascular congestion and bilateral pleural effusions. - Laboratory data: WBC 2.76. Hemoglobin 9.2. Platelet count 58. D-dimer 2.19. Sodium 139. Potassium 6.0. BUN 84. Creatinine 2.23. Troponin 0.166. 0.157. 0.130. proBNP 2420. - Current home cardiac medications include Eliquis 5 mg twice a day, Lipitor 40 mg daily, losartan 100 mg daily, metoprolol succinate 37.5 mg daily, hydralazine 50 mg 3 times daily, hydrochlorothiazide 25 mg daily. - Most recent echocardiogram obtained in October 2022 revealed ejection fraction 55 to 60%, post TAVR with normally functioning bioprosthetic valve with peak gra dient 16 and mean gradient 11. Trace to mild aortic regurgitation. Mild TR. - Cardiac catheterization history: [address] Javier revealing codominant/right dominant system. 60% proximal RCA with heavily calcification and good size posterior descending artery branch that comes off from RCA. Left main has no significant disease and is very small. LAD has 30 to 40% narrowing. PLV branch it comes off of nondominant circumflex has 50% narrowing. No other significant disease in the rest of the circumflex. 10/26/24: Patient seen and examined at bedside today. BP 83/51, pulse rate 74 bpm. Labs today show WBC 4.57, hemoglobin 8.1, platelet count 57, sodium 135, potassium 5.6, creatinine 3.05, BUN 90. Abnormal creatinine ultrasound shows ascites, gallbladder wall thickening could be due to hypoalbuminemia, correlate for hepatic cirrhosis. Chest x-ray shows continued cardiomegaly with small effusions greater on the right, pulmonary venous congestion without overt failure. 10/27/24: Patient evaluated at bedside today. He was on BIPAP overnight at 15/5/50%. Patient was obtunded last night but is more active today morning. Heme onc evaluated the patient, stated thrombocytopenia likely related to ongoing alcohol abuse and cirrhosis, superimposed by CHF exacerbation and recommend patient can be continued on Eliquis as previously recommended for his atrial fibrillation as long plts are > 50,000. Blood cultures show no growth in 24 hours. Pulse 79 bpm, BP 119/64 WBC 5.08, globin 9.1, platelet count 53, potassium 5.3, BUN 97, creatinine 3.06 Chest Xray shows again noted is cardiomegaly with bilateral pleural effusion, venous congestion Echocardiogram shows EF 60 to 65%, moderate to severe right ventricular dilation, reduced left ventricular function, RVSP 51 with severe biatrial enlargement, mild paravalvular aortic regurgitation, severe tricuspid regurgitation, moderate pericardial effusion without tamponade physiology. 10/28/24: Patient seen and examined at bedside today. Pulse 72 bpm, BP 119/72 WBC 4.41, Hb 8.6, Plt 60, BUN 94, creatinine 2.77 Blood culture shows no growth after 48 hours Chest Xray shows cardiomegaly and pulmonary venous congestion 10/30/2024 Patient examined this morning at bedside. Patient currently denies chest pain or pressure. He denies shortness of breath. Vital signs are stable. He has been transition to oral diuretics. PHYSICAL EXAM: VITAL SIGNS: Reviewed. GENERAL: Well-developed in no acute distress. HEENT: Head is normocephalic. Pupils are equal, round. Sclerae anicteric. Mucous membranes of the mouth are moist. Neck supple. No JVD or thyromegaly LUNGS: Respirations even and unlabored. Lungs essentially clear to auscultation bilaterally. HEART: Irregular rate and rhythm. S1 and S2 heard. ABDOMEN: Soft. Nondistended. Nontender. EXTREMITIES: Normal range of motion. No clubbing or cyanosis. Peripheral pulses intact. No lower extremity edema NEUROLOGIC: Lethargic ASSESSMENT: Shortness of breath Acute on chronic heart failure with preserved EF Generalized weakness with frequent falls, per family Hallucinations, per family Acute hypoxic respiratory failure Pancytopenia Acute kidney injury Elevated troponins, flat, likely secondary to poor renal clearance, no evidence of myocardial injury or ischemia History of severe aortic stenosis with previous TAVR, 2022 Nonobstructive coronary artery disease Persistent atrial fibrillation with controlled ventricular rate Hypertension Hyperlipidemia PLAN: Continue current cardiac medications including Eliquis, Lipitor, Lasix, metoprolol, midodrine, and Aldactone Patient is currently stable from a cardiac standpoint Continue to monitor kidney function Further recommendations pending patient course Nurse practitioner note has been reviewed by physician. Signing provider agrees with the documented findings, assessment, and plan of care documented by TRAUMA NURSE as a scribe. Objective - Vital Signs Vital signs: Vital Signs Temp 97.7 F 10/30/24 10:57 Pulse 76 10/30/24 12:15 Resp 16 10/30/24 10:57 BP 115/72 10/30/24 10:57 Pulse Ox 97 10/30/24 10:57 FiO2 50 10/27/24 08:30 Intake & Output 10/29/24 10/30/24 10/30/24 18:59 06:59 18:59 Intake Total 240 240 240 Output Total 600 1500 875 Balance -360 -1260 -345 Weight 80.6 kg Intake: IV 0 Sodium Chloride 0.9% 1, 0 000 ml @ 10 mls/hr IV . Q24H [facility] Rx#:[id number] Oral 240 240 240 Output: Urine 600 1500 875 Other: Voiding Method Indwelling Catheter Indwelling Catheter Indwelling Catheter # Voids 1 # Bowel Movements 1 - Labs CBC & Chem 7: 10/28/24 04:07 10/30/24 06:30 Labs: Abnormal Lab Results - Last 24 Hours (Table) 10/30/24 Range/Units 06:30 Carbon Dioxide 33 H (22-30) mmol/L BUN 95 H (9-20) mg/dL Creatinine 1.80 H (0.66-1.25) mg/dL Glucose 100 H (74-99) mg/dL
--- NOTE | 2024-10-30 13:11 | P.PN ---
Subjective Progress Note Date: 10/30/24 Principal diagnosis: Acute hypoxic and hypercapnic respiratory failure secondary to acute congestive heart failure with preserved LV function and underlying COPD. Patient is an 85-year-old male with past medical history significant for COPD, heart failure, TAVR, hypertension, hyperlipidemia, alcohol abuse. Patient is hard of hearing and a poor historian. Reportedly, having episodes of hallucinations and tremors while at home. Per the ER note, presented on 10/24/2024, with a chief complaint of shortness of breath with associated lower extremity swelling. Initially, patient was placed on BiPAP. Workup in the ED including a chest x-ray demonstrating cardiomegaly, pulmonary vascular congestion, and small bilateral pleural effusions. NT proBNP was elevated at 2420. Remaining blood work including a CBC with a WBC count 1.9, hemoglobin 9.2, platelets 63,000. Most recent CMP from yesterday including a sodium 136, potassium 5.5, chloride 102, serum bicarb 20, BUN 90, creatinine 2.55, glucose 163. It appears patient sustained an acute kidney injury on top of chronic kidney disease. Also, his potassium was 6 millimoles per liter yesterday morning, received a potassium cocktail, most recently potassium is down to 5.5. Urinalysis unremarkable. EKG: Atrial fibrillation with controlled ventricular response, rate 72 bpm, no obvious acute ischemic changes. Serial troponins elevated at 0.166, 0.16, and 0.13 respectively. Patient initially was on a heparin infusion, cardiology has since discontinued the IV heparin. Eliquis has since been resumed. Patient does have history of valvular heart disease and transcatheter aortic valve replacement back performed in 2022. Most recent available echocardiogram from Oct, 2022 estimating a left ventricular ejection fraction of 55 to 60%, stable bioprosthetic valve, and suggesting mild pulmonary hypertension with RVSP of 46 mmHg. Patient was on a noninvasive BiPAP since early this morning. He was started on a Lasix infusion at 10 mg/h. Currently, the patient is being evaluated in room 259. He is awake and alert and on 2 L/min nasal cannula. No respiratory distress noted. Blood pressure has been marginally hypotensive, 92/38 mmHg. Heart rhythm appears atrial fibrillation with controlled ventricular response. His lower extremity swelling has improved per the patient. Patient denies any chest pain, heart palpitations, syncopal events, orthopnea. Admits occasional nonproductive cough. Denies infectious symptoms. Denies nausea, vomiting, diarrhea. Denies hematemesis, melena, hematochezia. States he did fall while drinking alcohol at home. Denies losing consciousness. No obvious signs of head trauma. Reports daily alcohol use, drinks 2-3 large glasses of whiskey mixed with coke per day. Unclear when his last drink was. Serum alcohol level was less than 10 on arrival. No immediate signs of alcohol withdrawal. Current vital signs: Temperature 97.6 F, heart rate 58 bpm, blood pressure 92/38 mmHg, SpO2 recorded at 92% on 2 L/min nasal cannula. Patient was seen today on 10/27/2024, patient became quite obtunded last night, with worsening hypercapnia and worsening hypoxia. Patient developed a combined respiratory and metabolic acidosis, placed on BiPAP overnight 15//60%, and considering his obtundation, patient was close to be intubated and mechanically ventilated. Patient did receive Ativan 2 mg orally in PM yesterday and that may have contributed to his worsening hypercapnia/obtundation. This morning when I rounded on this patient is now on 4 L nasal cannula, ABG was done showed a pO2 of 146 pCO2 53 pH of 7.24 hence I recommended cutting down his FiO2 down to 2 L from 4 L I gave the patient 1 amp of bicarb and I cut down his Ativan to 1 mg every 4 hours only. Patient continues to have evidence of congestive heart failure echocardiogram showed good LV function and moderate-sized pericardial effusion with no evidence of tamponade. Lasix 80 mg IM was given this morning. IV fluid was 100 cc an hour I cut it down to KVO. Urine output is about 30 to 70 cc/h patient is off Levophed since 4 PM yesterday. WBC count today 5.0 hemoglobin 8.1, basic metabolic profile showed relatively normal electrolytes BUN is up to 97 creatinine up to 3.26, patient is being followed by nephrology. Patient was seen today on 10/28/2024, responding well to diuretics receiving Lasix 80 mg IV push twice daily. Patient has good urine output, he is in negative fluid balance. Creatinine is down to 2.7, potassium is 4.7, he is hemodynamically stable not requiring any pressors, patient does not seem to be in distress his WBC count is 4.4 hemoglobin 8.6, basic metabolic profile is normal BUN is 94 creatinine 2.77 patient is now on 2 L nasal cannula off BiPAP, plan to transfer the patient to medical floor/3 S. cardiac floor with monitor. Chest x-ray continues to show cardiomegaly and small pleural effusions. Patient was seen today on 10/29/2024, remains in the ICU but he is actually 3 S. overflow. Patient is on 2 L nasal cannula did not require BiPAP last night, seems to be very comfortable, in no distress. Denies shortness of breath denies any chest pain his WBC count today is 4.4 hemoglobin 8.6 platelets remain low at 60,000 but improving, basic metabolic profile is normal creatinine is improving down to 2.77 continues to have good urine output with Lasix 80 mg IV push twice daily. Patient had modified barium yesterday, no aspiration noted. Patient was seen today on 11/26/2024, patient is steadily improving, he is now on 3 S., not in any distress, actually the patient is on room air. O2 sat is 97%, his labs are unremarkable WBC count is 4.4 hemoglobin 8.6 electrolytes are normal, BUN is down to 95 creatinine is down to 1.80, steadily improving from his last creatinine few days ago was as high as 3.26. Remains on Lasix 80 mg p.o. twice daily remains on bronchodilators remains on midodrine and I will discontinue his methylprednisolone today and transition him to a Medrol Dosepak. Objective - Vital Signs Vital signs: Vital Signs Temp 97.7 F 10/30/24 10:57 Pulse 76 10/30/24 12:15 Resp 16 10/30/24 10:57 BP 115/72 10/30/24 10:57 Pulse Ox 97 10/30/24 10:57 FiO2 50 10/27/24 08:30 Intake & Output 10/29/24 10/30/24 10/30/24 18:59 06:59 18:59 Intake Total 240 240 240 Output Total 600 1500 875 Balance -230 -0869 -945 Weight 80.6 kg Intake: IV 0 Sodium Chloride 0.9% 1, 0 000 ml @ 10 mls/hr IV . Q24H [facility] Rx#:[id number] Oral 240 240 240 Output: Urine 600 1500 875 Other: Voiding Method Indwelling Catheter Indwelling Catheter Indwelling Catheter # Voids 1 # Bowel Movements 1 - Exam GENERAL EXAM: Revealed 84-year-old white male on room air, not in distress HEAD: Normocephalic and atraumatic EYES: Normal reaction of pupils, equal size. NOSE: Clear with pink turbinates. THROAT: No erythema or exudates. NECK: No masses, no JVD. CHEST: No chest wall deformity. LUNGS: Diminished breath sound bilaterally no crackles rhonchi or wheezes CVS: S1 and S2 normal with soft systolic, irregular rhythm. No other extra heart sounds ABDOMEN: No hepatosplenomegaly, active bowel sounds, no guarding or rigidity. Positive ascites SKIN: No rashes CENTRAL NERVOUS SYSTEM: No focal deficits, tone is normal in all 4 extremities. EXTREMITIES: Trace of bipedal edema - Labs CBC & Chem 7: 10/28/24 04:07 10/30/24 06:30 Labs: Abnormal Lab Results - Last 24 Hours (Table) 10/30/24 Range/Units 06:30 Carbon Dioxide 33 H (22-30) mmol/L BUN 95 H (9-20) mg/dL Creatinine 1.80 H (0.66-1.25) mg/dL Glucose 100 H (74-99) mg/dL Microbiology - Last 24 Hours (Table) 10/25/24 08:12 Blood Culture - Final Blood Assessment and Plan Assessment: Impression: Acute CHF exacerbation, with preserved ejection fraction Chronic obstructive pulmonary disease, inactive at present Acute hypoxemic and hypercapnic respiratory failure, multifactorial related to congestive heart failure, underlying COPD, and Ativan that was given for alcohol withdrawal Atrial fibrillation with controlled ventricular response, anticoagulated on Eliquis History of valvular heart disease, status post transcatheter aortic valve replacement in 2022 Elevated troponins History of hypertension History of hyperlipidemia Acute kidney injury, on top of chronic kidney disease Severe hyperkalemia, mostly secondary to combined metabolic and respiratory acidosis Pancytopenia History of alcohol abuse, serum alcohol less than 10 on arrival Hard of hearing Former tobacco smoker Recommendation: Continue diuretics, Lasix 80 mg IV push twice daily Continue CIWA protocol Continue updrafts Change methylprednisolone to Medrol Dosepak Continue midodrine Continue GI and DVT prophylaxis Patient to be considered for discharge in the next 24 hours if cleared by other consultants. Will continue to follow Time with Patient: Less than 30
--- NOTE | 2024-10-30 14:03 | P.PN ---
Subjective Progress Note Date: 10/30/24 Patient is seen for follow-up for acute kidney injury and CHF. He is currently being diuresed. Urine output has improved along with improvement in renal function. Patient is awake, comfortable, no acute distress Questions appropriately Examination of the heart S1 and S2 Examination of the lungs decreased breath sounds at the bases Abdomen is soft nontender Examination lower extremity shows edema 1+ bilaterally, chronic skin changes FINANCE MANAGER exam shows patient moving all 4 extremities. Objective - Vital Signs Vital signs: Vital Signs Temp 97.5 F L 10/30/24 08:57 Pulse 67 10/30/24 08:57 Resp 16 10/30/24 08:58 BP 108/69 10/30/24 08:57 Pulse Ox 96 10/30/24 08:57 FiO2 50 10/27/24 08:30 Intake & Output 10/29/24 10/30/24 10/30/24 18:59 06:59 18:59 Intake Total 240 240 Output Total 600 1500 875 Balance -360 -2833 -751 Weight 80.6 kg Intake: IV 0 Sodium Chloride 0.9% 1, 0 000 ml @ 10 mls/hr IV . Q24H [facility] Rx#:[id number] Oral 240 240 Output: Urine 600 1500 875 Other: Voiding Method Indwelling Catheter Indwelling Catheter Indwelling Catheter # Voids 1 # Bowel Movements 1 - Labs CBC & Chem 7: 10/28/24 04:07 10/30/24 06:30 Labs: Abnormal Lab Results - Last 24 Hours (Table) 10/30/24 Range/Units 06:30 Carbon Dioxide 33 H (22-30) mmol/L BUN 95 H (9-20) mg/dL Creatinine 1.80 H (0.66-1.25) mg/dL Glucose 100 H (74-99) mg/dL Assessment and Plan Assessment: 1. Acute kidney injury, ATN from hypotension, oliguric with improving urine output. Status post IV fluids on initial admission. Currently hypervolemic and being diuresed. Creatinine peak 3.2, improved 1.8 today. UA no active sediment. Moderate pericardial effusion noted with no evidence of tamponade. 2. Mental status changes most likely metabolic encephalopathy. Serum ammonia was 30. Mentation improved significantly. 3. History of significant alcohol intake on a regular basis with serum alcohol less than 10 on admission 4. Hyperkalemia associated with acute kidney injury, improved. Maintained on Lokelma, improved with improving urine output and loop diuretics 5. Moderate pericardial effusion with no evidence of tamponade Plan: Continue with current dose of IV Lasix Continue with midodrine Repeat labs today and in a.m. Transition to PO diuretics soon
[2024-10-30] MEDS: methylPREDNISolone 4 MG TAB TAPER PO SCH (14:10)
--- NOTE | 2024-10-30 18:52 | P.PN ---
Progress Note - Text Progress Note Date: 10/30/24 Chief Complaint: Multiple complaints This is a 84-year-old patient who follows with Dr. Jacobs. Chronic medical conditions include COPD, decreased hearing, hyperlipidemia hypertension previous [place] enlarged prostate gout uses a cane/walker. Drinks 2-3 mixed drinks a day. History is obtained by patient's son Romario at the bedside and his . Patient lives with his other son Sean. Of recent patient's been having falls. Hallucinations seeing things. Unsteady. Shaking. Appetite is okay. Patient is hard of hearing but able to answer simple questions. They cannot tell why he is here. No fever or chills reported. Patient has a tickle in the throat and intermittently keeps coughing. Some shortness of breath October 26: Saw the patient this morning. Last night patient was hypotensive, and started on Lasix drip. Moved to the ICU. Not much urine output. Tremors better. More awake. Started on Levophed drip. Off Lasix. On Ventimask 2D echo showed EF of 60 to 65%. Severe right-sided dilatation. Moderate pericardial effusion. 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 Did receive IV fluids. Because of hypotension. Today received IV Lasix. Good urine output. More awake. More settled. No further tremors. Down to 2 L nasal cannula. failed bedside swallow eval. Will do again will be evaluated tomorrow. October 1: ICU. Looks more comfortable. Communicating better. at the bedside. Underwent modified barium swallow. Minimal impairment. Seen by speech therapist. Diet advanced. Remains on IV Lasix 80 mg every 12. Good urine output. Creatinine 2.7. 2 L nasal cannula. Will be transferred off ICU. Discussed with patient and . October 2: ICU. Up in a chair. Talking much better. Eating all his meals. Remains on IV Lasix. Did not require BiPAP overnight. 2 L nasal cannula. October 3: On telemetry floor. Eating well. Breathing much improved. Has been switched to to oral Lasix. Pulse ox 97% room air. Increase activity. Planning for discharge tomorrow. Creatinine further coming down Active Medications Hydrocodone Bitart/Acetaminophen (Hydrocodone/Apap 5-325mg 1 Each Tab) 1 each P O Q8H PRN PRN Reason: Pain Last Admin: 10/30/24 10:58 Dose: 1 each Albuterol/Ipratropium (Ipratropium-Albuterol 3 Ml Neb) 3 ml INHALATION RT-QID COUNTS INCLUDE 234 BEDS AT THE [facility] Last Admin: 10/30/24 15:27 Dose: 3 ml Allopurinol (Allopurinol 100 Mg Tab) 100 mg PO DAILY COUNTS INCLUDE 234 BEDS AT THE [facility] Last Admin: 10/30/24 09:09 Dose: 100 mg Apixaban (Apixaban 2.5 Mg Tablet) 2.5 mg PO BID COUNTS INCLUDE 234 BEDS AT THE [facility]; Protocol Last Admin: 10/30/24 09:09 Dose: 2.5 mg Atorvastatin Calcium (Atorvastatin 40 Mg Tab) 40 mg PO DAILY COUNTS INCLUDE 234 BEDS AT THE [facility] Last Admin: 10/30/24 09:09 Dose: 40 mg Calcium Carbonate/Glycine (Calcium Carbonate 500 Mg Chewable) 500 mg PO BID COUNTS INCLUDE 234 BEDS AT THE [facility] Last Admin: 10/30/24 09:09 Dose: 500 mg Diclofenac Sodium (Diclofenac Sodium Gel 100 Gm Tube) 2 gm TOPICAL Q8H PRN; Protocol PRN Reason: Pain Ferrous Sulfate (Ferrous Sulfate 325 Mg Tab) 325 mg PO [facility] Last Admin: 10/29/24 20:52 Dose: 325 mg Furosemide (Furosemide 80 Mg Tab) 80 mg PO BID@0900,1600 COUNTS INCLUDE 234 BEDS AT THE [facility] Last Admin: 10/30/24 16:18 Dose: 80 mg Gabapentin (Gabapentin 100 Mg Cap) 200 mg PO [facility] Last Admin: 10/29/24 20:51 Dose: 200 mg Sodium Chloride (Saline 0.9%) 1,000 mls @ 10 mls/hr IV .Q24H COUNTS INCLUDE 234 BEDS AT THE [facility] Last Admin: 10/30/24 04:48 Dose: Not Given Lorazepam (Lorazepam 1 Mg Tab) 1 mg PO Q4HR PRN PRN Reason: Ciwa 6 To 7 Methylprednisolone (Methylprednisolone 4 Mg Tab Taper) 24 mg PO DAILY COUNTS INCLUDE 234 BEDS AT THE [facility]; Taper Stop: 11/05/24 08:59 Last Admin: 10/30/24 14:10 Dose: 24 mg Metoprolol Succinate (Metoprolol Succinate (Er) 25 Mg Tab.Er.24h) 37.5 mg PO DAILY COUNTS INCLUDE 234 BEDS AT THE [facility] Last Admin: 10/30/24 09:09 Dose: 37.5 mg Midodrine (Midodrine 5 Mg Tab) 5 mg PO AC-BID COUNTS INCLUDE 234 BEDS AT THE [facility] Last Admin: 10/30/24 16:18 Dose: 5 mg Multivitamins (Multivitamins, Thera 1 Each Tab) 1 each PO DAILY COUNTS INCLUDE 234 BEDS AT THE [facility] Last Admin: 10/30/24 09:10 Dose: 1 each Pantoprazole Sodium (Pantoprazole 40 Mg Tablet) 40 mg PO DAILY COUNTS INCLUDE 234 BEDS AT THE [facility] Last Admin: 10/30/24 09:09 Dose: 40 mg Spironolactone (Spironolactone 25 Mg Tab) 50 mg PO DAILY COUNTS INCLUDE 234 BEDS AT THE [facility] Last Admin: 10/30/24 09:09 Dose: 50 mg Tamsulosin HCl (Tamsulosin 0.4 Mg Cap.Er.24h) 0.8 mg PO HS COUNTS INCLUDE 234 BEDS AT THE [facility] Last Admin: 10/29/24 20:51 Dose: 0.8 mg Thiamine HCl (Thiamine 100 Mg Tab) 100 mg PO DAILY COUNTS INCLUDE 234 BEDS AT THE [facility] Last Admin: 10/30/24 09:09 Dose: 100 mg Social history: Patient has least 2-3 mixed drinks daily. Stop smoking at the age of 42. Half a pack a day. Does use a cane/walker. Lives with his son Sean. Physical examination: VITAL SIGNS: 97.6, 65, 16, 134 x 73, 97% room air GENERAL: BMI 29, up in a chair, comfortable EYES: Pupils equal. Conjunctiva ramya l. HEENT: External appearance of nose and ears normal, oral cavity grossly normal. NECK: JVD unable to assess; masses not palpable. HEART: First and second heart sounds are normal; edema coming down LUNGS: Respiratory rate normal, decreased breath sounds. ABDOMEN: Soft, nontender, liver spleen not palpable, no masses palpable. PSYCH: Answering simple questions. Mood affect normal MUSCULOSKELETAL:No Clubbing/cyanosis;muscles-grossly intact. OA and many joint NEUROLOGICAL: Cranial nerves grossly intact; no facial asymmetry, no jerking INVESTIGATIONS, reviewed in the clinical context: October 30: Potassium 4.3 BUN 95 creatinine 1.8 October 29: White count 4.4 hemoglobin 8.6 platelets 60 potassium 4.7 BUN 94 cr eatinine 2.77 Modified barium swallow: Minimal impairment October 28: White count 4.4 hemoglobin 8.6 platelets 60 potassium 4.7 BUN 94 creatinine 2.77 October 27: White count 5.0 hemoglobin 8.1 platelets 53. ABG: pH 7.2 [id number] PO2 146 potassium 5.3 BUN 97 creatinine 3.26 Renal ultrasound: Possible hepatic cirrhosis. Ascites. 2D echo: EF 60 to 65%. Severe right ventricle dilatation. Moderate pulmonary hypertension. Normal functioning bioprosthetic arctic valve. Without stenosis. Severe tricuspid regurgitation. Moderate pericardial effusion left pleural effusion October 26: White count 4.5 hemoglobin 8.1 platelets 57 sodium 135 potassium 5.6 BUN 90 creatinine 3.05 October 25: White count 1.9 hemoglobin 9.2 platelets 63 sodium 139 potassium 6 BUN 84 creatinine 2.23 October 24: White count 2.7 hemoglobin 9.2 platelets 58. Sodium 139 potassium 5.3 BUN 88 creatinine 2.21 Troponin I, 0.166, 0.157, 0.130 Serum alcohol less than 10 EKG tracing personally reviewed by me-atrial fibrillation. Chest x-ray film personally reviewed by me-cardiomegaly, with pulm edema Prior labs: November 14, 2023: Creatinine 1.5 2D echo 2022: EF 50 to 60%. Moderate pulmonary hypertension. Normal functioning bioprosthetic valve. Assessment plan: - Acute congestive heart failure exacerbation probably diastolic dysfunction, EF 50 to 60%: Much improved Strict I's and O's. Fluid restriction 2000 cc a day. Received IV Lasix. Today switched over to oral Lasix - Bioprosthetic valve, aortic - Acute hypoxic, hypercapnic respiratory failure: Resolved Was on Ventimask. Now on room air - Acute delirium, metabolic encephalopathy likely from worsening kidney function. And hypoxia: Resolved Supplemental oxygen. 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 Improved Modified barium swallow: Minimal impairment. Diet advanced to ground with nectar thick liquids. One-to-one supervision Seen by speech therapist - Acute kidney injury likely ATN from cardiorenal. Syndrome.: Improvement Renal ultrasound. Noted Received Lasix Nephrology following - Chronic kidney disease, with creatinine being 1.5 in October 2023. Stage III likely nephrosclerosis Creatinine peaked to 3.26, now coming down - Troponinemia. In the setting of worsening renal failure. No chest pain reported. Doubt ACS Cardiology following - Hyperkalemia. Currently improved Kayexalate. Renal diet. - Tremors twitching reported by family. Likely from patient being on gabapentin in the setting of worsening renal function: Resolved Neurontin was initially held and dose cut back - Pancytopenia, could be from underlying liver disease. Given that patient been drinking alcohol for some time. Follow CBC - Persistent atrial fibrillation. Rate controlled. Eliquis. -Alcohol use disorder. 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 Other medication to continue. Increase activity. Hopefully plan for discharge tomorrow. Past Medical History Past Medical History: COPD, CVA/TIA, Hearing Disorder / Deafness, Hyperlipidemia, Hypertension, Myocardial Infarction ([place]), Prostate Disorder Additional Past Medical History / Comment(s): Aortic Valve stenosis,Heart murmur, possible CVA or heart attack-pt not sure, back pain, gout, uses cane, hard of hearing-no hearing aides. Last Myocardial Infarction Date:: 2020? History of Any Multi-Drug Resistant Organisms: None Reported Past Surgical History: Appendectomy, Heart Catheterization, Orthopedic Surgery Additional Past Surgical History / Comment(s): Reverse shoulder, right toe surgery, left hand ring finger surgery, colonoscopy, JUAN PABLO. Past Anesthesia/Blood Transfusion Reactions: No Reported Reaction Additional Past Anesthesia/Blood Transfusion Reaction / Comment(s): No hx blood transfusion. Past Psychological History: No Psychological Hx Reported Smoking Status: Former smoker Past Alcohol Use History: Daily Past Drug Use History: None Reported
[2024-10-31] MEDS ORDERED: ALBUTEROL NEBULIZED 2.5 MG/3 ML INHALATION PRN (08:06)
--- NOTE | 2024-10-31 10:01 | P.PN ---
Subjective HISTORY OF PRESENT ILLNESS: This is a 84-year-old male with a past medical history significant for nonobstructive CAD, severe aortic stenosis with previous TAVR, hypertension, hyperlipidemia, and atrial fibrillation. Patient follows in the office with Dr. Javier. We have been asked to see the patient in consultation for CHF. Patient examined at the bedside. Patient presented to the ER with a chief complaint shortness of breath. Patient's family is at the bedside and states that patient has been shaking a lot at home. They report he has been falling frequently and is very weak. They state for the past 2 to 3 days he has been having bucio ucinations at home where he has been seeing his in the house. DIAGNOSTICS: - EKG reveals atrial fibrillation with controlled ventricular rate. - Chest xray cardiomegaly, pulmonary vascular congestion and bilateral pleural effusions. - Laboratory data: WBC 2.76. Hemoglobin 9.2. Platelet count 58. D-dimer 2.19. Sodium 139. Potassium 6.0. BUN 84. Creatinine 2.23. Troponin 0.166. 0.157. 0.130. proBNP 2420. - Current home cardiac medications include Eliquis 5 mg twice a day, Lipitor 40 mg daily, losartan 100 mg daily, metoprolol succinate 37.5 mg daily, hydralazine 50 mg 3 times daily, hydrochlorothiazide 25 mg daily. - Most recent echocardiogram obtained in October 2022 revealed ejection fraction 55 to 60%, post TAVR with normally functioning bioprosthetic valve with peak gra dient 16 and mean gradient 11. Trace to mild aortic regurgitation. Mild TR. - Cardiac catheterization history: [address] Javier revealing codominant/right dominant system. 60% proximal RCA with heavily calcification and good size posterior descending artery branch that comes off from RCA. Left main has no significant disease and is very small. LAD has 30 to 40% narrowing. PLV branch it comes off of nondominant circumflex has 50% narrowing. No other significant disease in the rest of the circumflex. 10/26/24: Patient seen and examined at bedside today. BP 83/51, pulse rate 74 bpm. Labs today show WBC 4.57, hemoglobin 8.1, platelet count 57, sodium 135, potassium 5.6, creatinine 3.05, BUN 90. Abnormal creatinine ultrasound shows ascites, gallbladder wall thickening could be due to hypoalbuminemia, correlate for hepatic cirrhosis. Chest x-ray shows continued cardiomegaly with small effusions greater on the right, pulmonary venous congestion without overt failure. 10/27/24: Patient evaluated at bedside today. He was on BIPAP overnight at 15/5/50%. Patient was obtunded last night but is more active today morning. Heme onc evaluated the patient, stated thrombocytopenia likely related to ongoing alcohol abuse and cirrhosis, superimposed by CHF exacerbation and recommend patient can be continued on Eliquis as previously recommended for his atrial fibrillation as long plts are > 50,000. Blood cultures show no growth in 24 hours. Pulse 79 bpm, BP 119/64 WBC 5.08, globin 9.1, platelet count 53, potassium 5.3, BUN 97, creatinine 3.06 Chest Xray shows again noted is cardiomegaly with bilateral pleural effusion, venous congestion Echocardiogram shows EF 60 to 65%, moderate to severe right ventricular dilation, reduced left ventricular function, RVSP 51 with severe biatrial enlargement, mild paravalvular aortic regurgitation, severe tricuspid regurgitation, moderate pericardial effusion without tamponade physiology. 10/28/24: Patient seen and examined at bedside today. Pulse 72 bpm, BP 119/72 WBC 4.41, Hb 8.6, Plt 60, BUN 94, creatinine 2.77 Blood culture shows no growth after 48 hours Chest Xray shows cardiomegaly and pulmonary venous congestion 10/30/2024 Patient examined this morning at bedside. Patient currently denies chest pain or pressure. He denies shortness of breath. Vital signs are stable. He has been transition to oral diuretics. 10/31/2024 Patient examined this morning at the bedside. Patient currently denies chest pain or pressure. He denies shortness of breath. Vital signs are stable. PHYSICAL EXAM: VITAL SIGNS: Reviewed. GENERAL: Well-developed in no acute distress. HEENT: Head is normocephalic. Pupils are equal, round. Sclerae anicteric. Mucous membranes of the mouth are moist. Neck supple. No JVD or thyromegaly LUNGS: Respirations even and unlabored. Lungs essentially clear to auscultation bilaterally. HEART: Irregular rate and rhythm. S1 and S2 heard. ABDOMEN: Soft. Nondistended. Nontender. EXTREMITIES: Normal range of motion. No clubbing or cyanosis. Peripheral pulses intact. No lower extremity edema NEUROLOGIC: Lethargic ASSESSMENT: Shortness of breath Acute on chronic heart failure with preserved EF Generalized weakness with frequent falls, per family Hallucinations, per family Acute hypoxic respiratory failure Pancytopenia Acute kidney injury Elevated troponins, flat, likely secondary to poor renal clearance, no evidence of myocardial injury or ischemia History of severe aortic stenosis with previous TAVR, 2022 Nonobstructive coronary artery disease Persistent atrial fibrillation with controlled ventricular rate Hypertension Hyperlipidemia PLAN: Continue current cardiac medications including Eliquis, Lipitor, Lasix, metoprolol, midodrine, and Aldactone Patient is currently stable from a cardiac standpoint Continue to monitor kidney function Further recommendations pending patient course Nurse practitioner note has been reviewed by physician. Signing provider agrees with the documented findings, assessment, and plan of care documented by SPECIAL SERVICES AGENT as a scribe. Objective - Vital Signs Vital signs: Vital Signs Temp 97.7 F 10/31/24 08:22 Pulse 72 10/31/24 08:22 Resp 16 10/31/24 08:22 BP 119/68 10/31/24 08:22 Pulse Ox 99 10/31/24 08:22 FiO2 50 10/27/24 08:30 Intake & Output 10/30/24 10/31/24 10/31/24 18:59 06:59 18:59 Intake Total 730 120 240 Output Total 1999 1750 Balance -1270 -1630 240 Weight 80 kg Intake: IV 10 Invasive Line 3 10 Oral 720 120 240 Output: Urine 1999 1750 Other: Voiding Method Urinal Indwelling Catheter Urinal - Labs CBC & Chem 7: 10/28/24 04:07 10/30/24 06:30 Labs: Microbiology - Last 24 Hours (Table) 10/25/24 08:12 Blood Culture - Final Blood
[2024-10-31 11:19] VITALS: BP 116/72; PULSE 64; TEMP 97.6
[2024-10-31 11:47] LABS: African American GFR (CKD) 44 (>60 ml/min/1.73 sqM); Anion Gap 4 mmol/L; Blood Urea Nitrogen 87 mg/dL (9-20); Calcium 9.1 mg/dL (8.4-10.2); Carbon Dioxide 38 mmol/L (22-30); Chloride 97 mmol/L (98-107); Glucose 132 mg/dL (74-99); Non-African American GFR(CKD) 38 (>60 ml/min/1.73 sqM); Sodium 139 mmol/L (137-145)
--- NOTE | 2024-10-31 12:29 | P.PN ---
Subjective Progress Note Date: 10/31/24 Patient is seen for follow-up for acute kidney injury and CHF. He is currently being diuresed. Urine output has improved along with improvement in renal function. Patient is awake, comfortable, no acute distress Questions appropriately Examination of the heart S1 and S2 Examination of the lungs decreased breath sounds at the bases Abdomen is soft nontender Examination lower extremity shows edema 1+ bilaterally, chronic skin changes CHUCK TENDER exam shows patient moving all 4 extremities. Objective - Vital Signs Vital signs: Vital Signs Temp 97.7 F 10/31/24 08:22 Pulse 72 10/31/24 08:22 Resp 16 10/31/24 08:22 BP 119/68 10/31/24 08:22 Pulse Ox 99 10/31/24 08:22 FiO2 50 10/27/24 08:30 Intake & Output 10/30/24 10/31/24 10/31/24 18:59 06:59 18:59 Intake Total 730 120 240 Output Total 1999 1750 225 Balance -1270 -1630 15 Weight 80 kg Intake: IV 10 Invasive Line 3 10 Oral 720 120 240 Output: Urine 1999 1750 225 Other: Voiding Method Urinal Indwelling Catheter Urinal # Bowel Movements 1 - Labs CBC & Chem 7: 10/28/24 04:07 10/31/24 11:05 Labs: Microbiology - Last 24 Hours (Table) 10/25/24 08:12 Blood Culture - Final Blood Assessment and Plan Assessment: 1. Acute kidney injury, ATN from hypotension, oliguric with improving urine output. Status post IV fluids on initial admission. Currently hypervolemic and being diuresed. Creatinine peak 3.2, improved 1.6. UA no active sediment. Moderate pericardial effusion noted with no evidence of tamponade. 2. Mental status changes most likely metabolic encephalopathy. Serum ammonia was 30. Mentation improved significantly. 3. History of significant alcohol intake on a regular basis with serum alcohol less than 10 on admission 4. Hyperkalemia associated with acute kidney injury, improved. Maintained on Lokelma, improved with improving urine output and loop diuretics 5. Moderate pericardial effusion with no evidence of tamponade Plan: Continue with current dose of IV Lasix Continue with midodrine Repeat labs today and in a.m. Transition to PO Lasix soon
--- NOTE | 2024-10-31 13:08 | P.PN ---
Subjective Progress Note Date: 10/31/24 Principal diagnosis: Acute hypoxic and hypercapnic respiratory failure secondary to acute congestive heart failure with preserved LV function and underlying COPD. Patient is an 85-year-old male with past medical history significant for COPD, heart failure, TAVR, hypertension, hyperlipidemia, alcohol abuse. Patient is hard of hearing and a poor historian. Reportedly, having episodes of hallucinations and tremors while at home. Per the ER note, presented on 10/24/2024, with a chief complaint of shortness of breath with associated lower extremity swelling. Initially, patient was placed on BiPAP. Workup in the ED including a chest x-ray demonstrating cardiomegaly, pulmonary vascular congestion, and small bilateral pleural effusions. NT proBNP was elevated at 2420. Remaining blood work including a CBC with a WBC count 1.9, hemoglobin 9.2, platelets 63,000. Most recent CMP from yesterday including a sodium 136, potassium 5.5, chloride 102, serum bicarb 20, BUN 90, creatinine 2.55, glucose 163. It appears patient sustained an acute kidney injury on top of chronic kidney disease. Also, his potassium was 6 millimoles per liter yesterday morning, received a potassium cocktail, most recently potassium is down to 5.5. Urinalysis unremarkable. EKG: Atrial fibrillation with controlled ventricular response, rate 72 bpm, no obvious acute ischemic changes. Serial troponins elevated at 0.166, 0.16, and 0.13 respectively. Patient initially was on a heparin infusion, cardiology has since discontinued the IV heparin. Eliquis has since been resumed. Patient does have history of valvular heart disease and transcatheter aortic valve replacement back performed in 2022. Most recent available echocardiogram from Oct, 2022 estimating a left ventricular ejection fraction of 55 to 60%, stable bioprosthetic valve, and suggesting mild pulmonary hypertension with RVSP of 46 mmHg. Patient was on a noninvasive BiPAP since early this morning. He was started on a Lasix infusion at 10 mg/h. Currently, the patient is being evaluated in room 259. He is awake and alert and on 2 L/min nasal cannula. No respiratory distress noted. Blood pressure has been marginally hypotensive, 92/38 mmHg. Heart rhythm appears atrial fibrillation with controlled ventricular response. His lower extremity swelling has improved per the patient. Patient denies any chest pain, heart palpitations, syncopal events, orthopnea. Admits occasional nonproductive cough. Denies infectious symptoms. Denies nausea, vomiting, diarrhea. Denies hematemesis, melena, hematochezia. States he did fall while drinking alcohol at home. Denies losing consciousness. No obvious signs of head trauma. Reports daily alcohol use, drinks 2-3 large glasses of whiskey mixed with coke per day. Unclear when his last drink was. Serum alcohol level was less than 10 on arrival. No immediate signs of alcohol withdrawal. Current vital signs: Temperature 97.6 F, heart rate 58 bpm, blood pressure 92/38 mmHg, SpO2 recorded at 92% on 2 L/min nasal cannula. Patient was seen today on 10/27/2024, patient became quite obtunded last night, with worsening hypercapnia and worsening hypoxia. Patient developed a combined respiratory and metabolic acidosis, placed on BiPAP overnight 15//60%, and considering his obtundation, patient was close to be intubated and mechanically ventilated. Patient did receive Ativan 2 mg orally in PM yesterday and that may have contributed to his worsening hypercapnia/obtundation. This morning when I rounded on this patient is now on 4 L nasal cannula, ABG was done showed a pO2 of 146 pCO2 53 pH of 7.24 hence I recommended cutting down his FiO2 down to 2 L from 4 L I gave the patient 1 amp of bicarb and I cut down his Ativan to 1 mg every 4 hours only. Patient continues to have evidence of congestive heart failure echocardiogram showed good LV function and moderate-sized pericardial effusion with no evidence of tamponade. Lasix 80 mg IM was given this morning. IV fluid was 100 cc an hour I cut it down to KVO. Urine output is about 30 to 70 cc/h patient is off Levophed since 4 PM yesterday. WBC count today 5.0 hemoglobin 8.1, basic metabolic profile showed relatively normal electrolytes BUN is up to 97 creatinine up to 3.26, patient is being followed by nephrology. Patient was seen today on 10/28/2024, responding well to diuretics receiving Lasix 80 mg IV push twice daily. Patient has good urine output, he is in negative fluid balance. Creatinine is down to 2.7, potassium is 4.7, he is hemodynamically stable not requiring any pressors, patient does not seem to be in distress his WBC count is 4.4 hemoglobin 8.6, basic metabolic profile is normal BUN is 94 creatinine 2.77 patient is now on 2 L nasal cannula off BiPAP, plan to transfer the patient to medical floor/3 S. cardiac floor with monitor. Chest x-ray continues to show cardiomegaly and small pleural effusions. Patient was seen today on 10/29/2024, remains in the ICU but he is actually 3 S. overflow. Patient is on 2 L nasal cannula did not require BiPAP last night, seems to be very comfortable, in no distress. Denies shortness of breath denies any chest pain his WBC count today is 4.4 hemoglobin 8.6 platelets remain low at 60,000 but improving, basic metabolic profile is normal creatinine is improving down to 2.77 continues to have good urine output with Lasix 80 mg IV push twice daily. Patient had modified barium yesterday, no aspiration noted. Patient was seen today on 11/26/2024, patient is steadily improving, he is now on 3 S., not in any distress, actually the patient is on room air. O2 sat is 97%, his labs are unremarkable WBC count is 4.4 hemoglobin 8.6 electrolytes are normal, BUN is down to 95 creatinine is down to 1.80, steadily improving from his last creatinine few days ago was as high as 3.26. Remains on Lasix 80 mg p.o. twice daily remains on bronchodilators remains on midodrine and I will discontinue his methylprednisolone today and transition him to a Medrol Dosepak. Patient was seen today on 10/31/2024, patient is resting he is on room air, does not seem to be in any distress, hemodynamically stable, electrolytes are normal today, bicarb is 38, BUN is 87 creatinine 1.64 steadily coming down and steady improvement in his renal status is noted over the last few days. Objective - Vital Signs Vital signs: Vital Signs Temp 97.6 F 10/31/24 11:17 Pulse 64 10/31/24 11:17 Resp 16 10/31/24 11:17 BP 116/72 10/31/24 11:17 Pulse Ox 99 10/31/24 11:17 FiO2 50 10/27/24 08:30 Intake & Output 10/30/24 10/31/24 10/31/24 18:59 06:59 18:59 Intake Total 730 120 720 Output Total 1999 1750 425 Balance -1270 -1630 295 Weight 80 kg Intake: IV 10 Invasive Line 3 10 Oral 720 120 720 Output: Urine 1999 1749 425 Other: Voiding Method Urinal Indwelling Catheter Urinal # Bowel Movements 1 - Exam GENERAL EXAM: Revealed 84-year-old white male on room air, not in distress HEAD: Normocephalic and atraumatic EYES: Normal reaction of pupils, equal size. NOSE: Clear with pink turbinates. THROAT: No erythema or exudates. NECK: No masses, no JVD. CHEST: No chest wall deformity. LUNGS clear bilaterally no crackles rhonchi or wheezes CVS: S1 and S2 normal with soft systolic, irregular rhythm. No other extra heart sounds ABDOMEN: No hepatosplenomegaly, active bowel sounds, no guarding or rigidity. Positive ascites SKIN: No rashes CENTRAL NERVOUS SYSTEM: No focal deficits, tone is normal in all 4 extremities. EXTREMITIES: Trace of bipedal edema - Labs CBC & Chem 7: 10/28/24 04:07 10/31/24 11:05 Labs: Abnormal Lab Results - Last 24 Hours (Table) 10/31/24 Range/Units 11:05 Chloride 97 L (98-107) mmol/L Carbon Dioxide 38 H (22-30) mmol/L BUN 87 H (9-20) mg/dL Creatinine 1.64 H (0.66-1.25) mg/dL Glucose 132 H (74-99) mg/dL Microbiology - Last 24 Hours (Table) 10/25/24 08:12 Blood Culture - Final Blood Assessment and Plan Assessment: Impression: Acute CHF exacerbation, with preserved ejection fraction Chronic obstructive pulmonary disease, inactive at present Acute hypoxemic and hypercapnic respiratory failure, multifactorial related to congestive heart failure, underlying COPD, and Ativan that was given for alcohol withdrawal Atrial fibrillation with controlled ventricular response, anticoagulated on Eliquis History of valvular heart disease, status post transcatheter aortic valve replacement in 2022 Elevated troponins History of hypertension History of hyperlipidemia Acute kidney injury, on top of chronic kidney disease Severe hyperkalemia, mostly secondary to combined metabolic and respiratory acidosis Pancytopenia History of alcohol abuse, serum alcohol less than 10 on arrival Hard of hearing Former tobacco smoker Recommendation: Continue Lasix on outpatient basis Continue updrafts Continue Medrol Dosepak on outpatient basis Continue midodrine Continue GI and DVT prophylaxis Will clear patient for discharge if cleared by other consultants. Time with Patient: Less than 30
--- NOTE | 2024-11-01 23:05 | P.DS ---
Providers Date of admission: 10/24/24 19:23 Expected date of discharge: 10/31/24 Attending physician: Obed Skinner Consults: 10/24/24 19:23 Consult Physician Routine Consulting Provider: Fernando Montoya Consult Reason/Comments: chf Do you want consulting provider notified?: Yes 10/25/24 10:20 Consult Physician Routine Consulting Provider: Galindo Novoa Consult Reason/Comments: Thrombocytopenia, safe for anticoag? Do you want consulting provider notified?: Yes Consult Physician Routine Consulting Provider: Maritza Baig Consult Reason/Comments: BRUNO Do you want consulting provider notified?: Yes 10/25/24 20:26 Consult Physician Routine Consulting Provider: Robson Reynolds Consult Reason/Comments: ICU Management Do you want consulting provider notified?: Already Contacted Primary care physician: [facility] Course: Chief Complaint: Multiple complaints This is a 84-year-old patient who follows with Dr. Jacobs. Chronic medical conditions include COPD, decreased hearing, hyperlipidemia hypertension previous CO enlarged prostate gout uses a cane/walker. Drinks 2-3 mixed drinks a day. History is obtained by patient's son Romario at the bedside and his . Patient lives with his other son Sean. Of recent patient's been having falls. Hallucinations seeing things. Unsteady. Shaking. Appetite is okay. Patient is hard of hearing but able to answer simple questions. They cannot tell why he is here. No fever or chills reported. Patient has a tickle in the throat and intermittently keeps coughing. Some shortness of breath October 26: Saw the patient this morning. Last night patient was hypotensive, and started on Lasix drip. Moved to the ICU. Not much urine output. Tremors better. More awake. Started on Levophed drip. Off Lasix. On Ventimask 2D echo showed EF of 60 to 65%. Severe right-sided dilatation. Moderate pericardial effusion. Left pleural effusion cardiology, nephrology, consulting hr professional following October 27: ICU: Levophed was discontinued yesterday late afternoon. Did receive IV fluids. Because of hypotension. Today received IV Lasix. Good urine output. More awake. More settled. No further tremors. Down to 2 L nasal cannula. failed bedside swallow eval. Will do again will be evaluated tomorrow. October 28: ICU. Looks more comfortable. Communicating better. at the [facility]. Underwent modified barium swallow. Minimal impairment. Seen by speech therapist. Diet advanced. Remains on IV Lasix 80 mg every 12. Good urine output. Creatinine 2.7. 2 L nasal cannula. Will be transferred off ICU. Discussed with patient and . October 29: ICU. Up in a chair. Talking much better. Eating all his meals. Remains on IV Lasix. Did not require BiPAP overnight. 2 L nasal cannula. October 30: On telemetry floor. Eating well. Breathing much improved. Has been switched to to oral Lasix. Pulse ox 97% room air. Increase activity. Planning for discharge tomorrow. Creatinine further coming down October 4: Continue to do well. Discussed with the patient. 2 sons at the bedside. I did address at length to address the CODE STATUS. Also discussed about his liver/cirrhosis. Questions answered. Patient will follow-up with pulmonary, cardiology, GI. Sitting up in chair. Eating well. Discussion and discharge planning more than 35 minutes Social history: Patient has least 2-3 mixed drinks daily. Stop smoking at the age of 42. Half a pack a day. Does use a cane/walker. Lives with his son Sean. Physical examination: VITAL SIGNS: 97.6, 64, 16, 116 x 32, 99% room air GENERAL: BMI 29, up in a chair, comfortable EYES: Pupils equal. Conjunctiva ramya l. HEENT: External appearance of nose and ears normal, oral cavity grossly normal. NECK: JVD unable to assess; masses not palpable. HEART: First and second heart sounds are normal; edema coming down LUNGS: Respiratory rate normal, decreased breath sounds. ABDOMEN: Soft, nontender, liver spleen not palpable, no masses palpable. PSYCH: Answering simple questions. Mood affect normal MUSCULOSKELETAL:No Clubbing/cyanosis;muscles-grossly intact. OA and many joint NEUROLOGICAL: Cranial nerves grossly intact; no facial asymmetry, no jerking INVESTIGATIONS, reviewed in the clinical context: October 31: Potassium 4 BUN 87 creatinine 1.64 Modified barium swallow: Minimal impairment October 28: White count 4.4 hemoglobin 8.6 platelets 60 potassium 4.7 BUN 94 creatinine 2.77 October 27: White count 5.0 hemoglobin 8.1 platelets 53. ABG: pH 7.2 [id number] PO2 146 potassium 5.3 BUN 97 creatinine 3.26 Renal ultrasound: Possible hepatic cirrhosis. Ascites. 2D echo: EF 60 to 65%. Severe right ventricle dilatation. Moderate pulmonary hypertension. Normal functioning bioprosthetic arctic valve. Without stenosis. Severe tricuspid regurgitation. Moderate pericardial effusion left pleural effusion October 26: White count 4.5 hemoglobin 8.1 platelets 57 sodium 135 potassium 5.6 BUN 90 creatinine 3.05 October 24: White count 2.7 hemoglobin 9.2 platelets 58. Sodium 139 potassium 5.3 BUN 88 creatinine 2.21 Troponin I, 0.166, 0.157, 0.130 Serum alcohol less than 10 EKG tracing personally reviewed by me-atrial fibrillation. Chest x-ray film personally reviewed by me-cardiomegaly, with pulm edema Prior labs: November 14, 2023: Creatinine 1.5 2D echo 2022: EF 50 to 60%. Moderate pulmonary hypertension. Normal functioning bioprosthetic valve. Assessment plan: - Acute congestive heart failure exacerbation probably diastolic dysfunction, EF 50 to 60%: Much improved Strict I's and O's. Fluid restriction 2000 cc a day. Received IV Lasix. Lasix 80 mg twice daily - Bioprosthetic valve, aortic - Acute hypoxic, hypercapnic respiratory failure: Resolved Was on Ventimask. Now on room air - Acute delirium, metabolic encephalopathy likely from worsening kidney function. And hypoxia: Resolved Supplemental oxygen. 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 Lasix - Moderate pericardial effusion Managed conservatively by cardiology - Nonobstructive coronary artery disease - Hypotensive shock: Recovered Received Levophed - Moderate secondary pulmonary hypertension - Severe tricuspid regurgitation, - Dysphagia. Improved Modified barium swallow: Minimal impairment. Diet advanced to ground with nectar thick liquids. One-to-one supervision Seen by speech therapist - Acute kidney injury likely ATN from cardiorenal. Syndrome.: Improvement Renal ultrasound. Noted Received Lasix Nephrology following - Chronic kidney disease, with creatinine being 1.5 in October 2023. Stage III likely nephrosclerosis Creatinine peaked to 3.26, down to 1.64 before discharge - Troponinemia. In the setting of worsening renal failure. No chest pain reported. Doubt ACS Cardiology following - Hyperkalemia. Currently improved Kayexalate. Renal diet. - Tremors twitching reported by family. Likely from patient being on gabapentin in the setting of worsening renal function: Resolved Neurontin was initially held and dose changed to once daily - Pancytopenia, could be from underlying liver disease. Given that patient been drinking alcohol for some time. Follow CBC - Persistent atrial fibrillation. Rate controlled. Eliquis. -Alcohol use disorder. Leading to cirrhosis - Chronic hard of hearing, does not have hearing aids - Chronic gout Allopurinol - GERD PPI - BPH Flomax - Primary osteoarthritis multiple joints Diclofenac sodium topical - Full code - [employer], son Andres Disposition: Home Labs: CBC BMP: 3 to 5 days Past Medical History Past Medical History: COPD, CVA/TIA, Hearing Disorder / Deafness, Hyperlipidemia, Hypertension, Myocardial Infarction (CO), Prostate Disorder Additional Past Medical History / Comment(s): Aortic Valve stenosis,Heart murmur, possible CVA or heart attack-pt not sure, back pain, gout, uses cane, hard of hearing-no hearing aides. Last Myocardial Infarction Date:: 2020? History of Any Multi-Drug Resistant Organisms: None Reported Past Surgical History: Appendectomy, Heart Catheterization, Orthopedic Surgery Additional Past Surgical History / Comment(s): Reverse shoulder, right toe surgery, left hand ring finger surgery, colonoscopy, JUAN PABLO. Past Anesthesia/Blood Transfusion Reactions: No Reported Reaction Additional Past Anesthesia/Blood Transfusion Reaction / Comment(s): No hx blood transfusion. Past Psychological History: No Psychological Hx Reported Smoking Status: Former smoker Past Alcohol Use History: Daily Past Drug Use History: None Reported Plan - Discharge Summary Discharge Rx Participant: No New Discharge Prescriptions: New Apixaban [Eliquis] 2.5 mg PO BID #60 tab Midodrine [ProAmatine] 5 mg PO AC-BID #60 tab Spironolactone [Aldactone] 50 mg PO DAILY #30 tab Furosemide [Lasix] 80 mg PO BID@0900,1600 #60 tab Thiamine [Vitamin B-1] 100 mg PO DAILY #30 tab Continue Ferrous Sulfate [Iron] 325 mg PO HS Omeprazole [PriLOSEC] 20 mg PO DAILY Calcium Citrate 200mg 200 mg PO BID Magnesium Oxide 420mg 420 mg PO DAILY Hydrocortisone Cream [Hydrocortisone 2.5% Cream] 1 applic TOPICAL BID PRN PRN Reason: Skin Irritation Diclofenac Sodium Gel [Voltaren 1% Gel] 2 gm TOPICAL Q8H PRN PRN Reason: Pain Atorvastatin [Lipitor] 40 mg PO DAILY Ascorbic Acid [Vitamin C] 500 mg PO DAILY Tamsulosin [Flomax] 0.8 mg PO HS Cholecalciferol [Vitamin D3 (25 Mcg = 1000 Iu)] 25 mcg PO DAILY Ipratropium [place] [Atrovent Hfa] 1 puff INHALATION RT-BID Multivit-Min/FA/Lycopen/Lutein [Centrum Silver Tablet] 1 tab PO DAILY HYDROcodone/APAP 5-325MG [Lock[place] 5-325] 1 tab PO Q8H PRN PRN Reason: Pain allopurinoL [Zyloprim] 100 mg PO DAILY Metoprolol Succinate (ER) [Toprol XL] 37.5 mg PO DAILY Changed Gabapentin [Neurontin] 200 mg PO HS #0 Discontinued Loratadine 10 mg PO DAILY Losartan Potassium [Cozaar] 100 mg PO DAILY hydroCHLOROthiazide 25 mg PO DAILY hydrALAZINE HCL [Apresoline] 50 mg PO TID Apixaban [Eliquis] 5 mg PO BID Discharge Medication List Cholecalciferol [Vitamin D3 (25 Mcg = 1000 Iu)] 25 mcg PO DAILY 05/20/22 [History] Ferrous Sulfate [Iron] 325 mg PO HS 05/20/22 [History] Ipratropium [place] [Atrovent Hfa] 1 puff INHALATION RT-BID 05/20/22 [History] Omeprazole [PriLOSEC] 20 mg PO DAILY 05/20/22 [History] Tamsulosin [Flomax] 0.8 mg PO HS 05/20/22 [History] Calcium Citrate 200mg 200 mg PO BID 04/02/23 [History] Magnesium Oxide 420mg 420 mg PO DAILY 04/02/23 [History] Ascorbic Acid [Vitamin C] 500 mg PO DAILY 10/24/24 [History] Atorvastatin [Lipitor] 40 mg PO DAILY 10/24/24 [History] Diclofenac Sodium Gel [Voltaren 1% Gel] 2 gm TOPICAL Q8H PRN 10/24/24 [History] HYDROcodone/APAP 5-325MG [Lock[place] 5-325] 1 tab PO Q8H PRN 10/24/24 [History] Hydrocortisone Cream [Hydrocortisone 2.5% Cream] 1 applic TOPICAL BID PRN 10/24/24 [History] Metoprolol Succinate (ER) [Toprol XL] 37.5 mg PO DAILY 10/24/24 [History] Multivit-Min/FA/Lycopen/Lutein [Centrum Silver Tablet] 1 tab PO DAILY 10/24/24 [History] allopurinoL [Zyloprim] 100 mg PO DAILY 10/24/24 [History] Apixaban [Eliquis] 2.5 mg PO BID #60 tab 10/31/24 [Rx] Furosemide [Lasix] 80 mg PO BID@0900,1600 #60 tab 10/31/24 [Rx] Gabapentin [Neurontin] 200 mg PO HS #0 10/31/24 [Rx] Midodrine [ProAmatine] 5 mg PO AC-BID #60 tab 10/31/24 [Rx] Spironolactone [Aldactone] 50 mg PO DAILY #30 tab 10/31/24 [Rx] Thiamine [Vitamin B-1] 100 mg PO DAILY #30 tab 10/31/24 [Rx] Follow up Appointment(s)/Referral(s): Robson Reynolds MD [STAFF PHYSICIAN] - 1 Week [facility] [NON-STAFF] - 1 Week Curt Jacobs MD [Primary Care Provider] - 1-2 days Shantelle Rosales MD [STAFF PHYSICIAN] - 1 Week (cirrhosis) Bradley Rosales MD [STAFF PHYSICIAN] - 1 Week Patient Instructions/Handouts: Heart Failure (DC), Acute Kidney Injury (DC), Hypoxia (GEN) Discharge Disposition: HOME SELF-CARE
== END 2024-10-31 13:04 | disposition home or self-care (01) | DRG 280 ==
LOC: EC 16:43 → 3SCARD 19:23 → 2SICU 10-25 20:33 → 3SCARD 10-29 17:57
PROVIDERS: ADMIT Hospitalist; ATTEND Hospitalist
DX: I13.0 Hypertensive heart and chronic kidney disease with heart failure and stage 1 through stage 4 chronic kidney disease, or unspecified chronic kidney disease (principal); G93.41 Metabolic encephalopathy; I21.4 Non-ST elevation (NSTEMI) myocardial infarction; I50.33 Acute on chronic diastolic (congestive) heart failure; J96.01 Acute respiratory failure with hypoxia; J96.02 Acute respiratory failure with hypercapnia; N17.0 Acute kidney failure with tubular necrosis; I31.39 Other pericardial effusion (noninflammatory); R13.10 Dysphagia, unspecified; D61.818 Other pancytopenia; F10.139 Alcohol abuse with withdrawal, unspecified; J44.1 Chronic obstructive pulmonary disease with (acute) exacerbation; K76.6 Portal hypertension; N18.30 Chronic kidney disease, stage 3 unspecified; Z95.2 Presence of prosthetic heart valve; Z79.01 Long term (current) use of anticoagulants; I35.0 Nonrheumatic aortic (valve) stenosis; I48.19 Other persistent atrial fibrillation; E87.4 Mixed disorder of acid-base balance; K70.31 Alcoholic cirrhosis of liver with ascites; I95.9 Hypotension, unspecified; M10.9 Gout, unspecified; K21.9 Gastro-esophageal reflux disease without esophagitis; H91.90 Unspecified hearing loss, unspecified ear; I25.10 Atherosclerotic heart disease of native coronary artery without angina pectoris; I25.2 Old myocardial infarction; E78.5 Hyperlipidemia, unspecified; E87.5 Hyperkalemia; N40.0 Benign prostatic hyperplasia without lower urinary tract symptoms; R29.6 Repeated falls; Z79.899 Other long term (current) drug therapy; Z87.891 Personal history of nicotine dependence
CPT/HCPCS: 36415; 36600; 71045; 71046; 74230; 76705; 76770; 80048; 80053; 80320; 81003; 82140; 82607; 82728; 82747; 82803; 82805; 83540; 83550; 83605; 83735; 83880; 84100; 84484; 85025; 85379; 85384; 85610; 85730; 87040; 93005; 93306; 94640; 94660; 94760; 96365; 96366; 96375; 96376; 99291